=== PATIENT | male | born 1970 | race Caucasian/White ===

== ENCOUNTER 2019-12-11 12:05 | Emergency (ER) | payer MEDICARE ==
[~2019-12-11] VITALS: Ht 180.3 cm; Wt 117.5 kg
[~2019-12-11 12:05] MED LIST: BACL10TA PO; CALC-80 PO; CFR250T PO; GABA100T PO; HYDR-91 PO; NAPR-243 PO; TRAZ150T42 PO; VITAMIN B12 IM
[2019-12-11 12:12] VITALS: BP 133/90
--- OUTSIDE RECORDS SUMMARY | 2019-12-11 12:12 | XMS REPORT | Continuity of Care Document ---
Author Organization Unknown Address Unknown Phone Unavailable Allergies There is no data. Medications There is no data. Problems There is no data. Procedures There is no data. Results Test Result Range CULTURE, URINE - 07/23/18 13:05 CULTURE, URINE, ROUTINE SEE NOTE NRG CMP - 04/19/19 10:55 GLUCOSE NRG UREA NITROGEN (BUN) NRG CREATININE NRG eGFR NON-AFR. MEXICAN NRG eGFR NRG BUN/CREATININE RATIO NRG SODIUM NRG POTASSIUM NRG CHLORIDE NRG CARBON DIOXIDE NRG CALCIUM NRG PROTEIN, TOTAL NRG ALBUMIN NRG GLOBULIN NRG ALBUMIN/GLOBULIN RATIO NRG BILIRUBIN, TOTAL NRG ALKALINE PHOSPHATASE NRG AST NRG ALT NRG CMP - 04/19/19 11:57 GLUCOSE 95 mg/dL 65-99 UREA NITROGEN (BUN) 14 mg/dL 7-25 CREATININE 1.03 mg/dL 0.60-1.35 eGFR NON-AFR. MEXICAN 85 mL/min/1.73m2 > OR = 60 eGFR 98 mL/min/1.73m2 > OR = 60 BUN/CREATININE RATIO NOT APPLICABLE (calc) 6-22 SODIUM 140 mmol/L 135-146 POTASSIUM 4.5 mmol/L 3.5-5.3 CHLORIDE 102 mmol/L 98-110 CARBON DIOXIDE 30 mmol/L 20-32 CALCIUM 9.8 mg/dL 8.6-10.3 PROTEIN, TOTAL 7.1 g/dL 6.1-8.1 ALBUMIN 4.5 g/dL 3.6-5.1 GLOBULIN 2.6 g/dL (calc) 1.9-3.7 ALBUMIN/GLOBULIN RATIO 1.7 (calc) 1.0-2. 5 BILIRUBIN, TOTAL 0.5 mg/dL 0.2-1.2 ALKALINE PHOSPHATASE 92 U/L 40-115 AST 15 U/L 10-40 ALT 22 U/L 9-46 CULTURE, URINE - 08/02/19 13:52 CULTURE, URINE, ROUTINE SEE NOTE NRG Encounters ACCT No. Visit Date/Time Discharge Status Pt. Type Provider Facility Loc./Unit Complaint [id number] 04/19/2019 10:00:00 04/19/2019 23:59: 59 [id number] 08/02/2019 13:00:00 Document Registration [id number] 04/19/2019 10:45:00 Document Registration [id number] 04/19/2019 10:00:00 Document Registration [id number] 07/23/2018 11:30:00 Document Registration
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
[2019-12-11] MEDS ORDERED: diphenhydrAMINE 25 MG TAB (BENADRYL) PO ONE (12:30)
[2019-12-11] MEDS: IBUPROFEN TABLET 200 MG TAB PO ONE (12:30)
--- NOTE | 2019-12-11 12:30 | NUR ---
Benadryl 50 mg given at this time, at this time pt mentioned he was sent from [facility] [place] as no EPI available there. Pt now reports Ibuprofen taken 800 [address] Meehan of the Ibuprofen and cancelled the med as pt refusal already. Pt states he is here for EPI so he doesn't have to use a 300.00 EPI pen of his. Review of systems earlier that pt does not have mouth, tongue, neck swelling. Pt has clear lung sounds and non-labored breathing. Pt denies SOA. Color pink, skin is warm and dry. Dr was not reporting pt meeting criteria of need of EPI pen at this time and we will observe pt 1 hr.
--- NOTE | 2019-12-11 12:35 | NUR ---
Prednisone 50 mg given PO as Dr ordered. Pt prefers to sit in a chair. SaO2 is satisfactory >95% room air.
--- NOTE | 2019-12-11 12:36 | ED General ---
General Chief Complaint: Bite-Animal/Human/Insect Stated Complaint: SWELLING AROUND LT EYE;BEE STING Source of Information: Patient History of Present Illness Date Seen by Provider: Dec 11, 2019 Time Seen by Provider: 12:15 Initial Comments Patient is a 49-year-old male with history of bee sting allergy presents with bee sting to his left cheek while driving down the road 45 mins prior to arrival. The fluid into his window and vitamin before below his left eye. Patient was evaluated at urgent care and given ibuprofen. Denies airway swelling, chest tightness, shortness of breath palpitations. Patient has had required epinephrine in the past to control airway swelling. No other acute symptoms or complaints. Timing/Duration: 1 Hour Severity: Moderate Modifying Factors: improves with Other Allergies and Home Medications Allergies Uncoded Allergies: Bee Sting (Adverse Reaction, Severe, Swelling, 12/11/19) Home Medications Baclofen 10 Mg Tablet, 1 EACH PO TID, (Reported) Calcium Carbonate/Vitamin D3 1 Each Tablet, 1 EACH PO DAILY, (Reported) Cefuroxime Axetil 250 Mg Tablet, 1 TAB PO BID, (Reported) Gabapentin 100 Mg Tablet, 3 EACH PO QID, (Reported) Hydrocodone Bit/Acetaminophen 1 Each Tablet, 1-2 EA PO Q 4 - 6 HR PRN, (Reported) Naproxen 500 Mg Tablet, 1 EACH PO BID, (Reported) Trazodone Hcl 150 Mg Tablet, 150 MG PO HS, (Reported) [Vitamin B12] , IM MONTHLY, (Reported) Patient Home Medication List Home Medication List Reviewed: Yes Review of Systems Review of Systems Constitutional: see HPI EENTM: see HPI Respiratory: see HPI Cardiovascular: see HPI Gastrointestinal: see HPI Genitourinary: see HPI Musculoskeletal: see HPI Skin: see HPI Psychiatric/Neurological: See HPI Hematologic/Lymphatic: See HPI Immunological/Allergic: see HPI All Other Systems Reviewed Negative Unless Noted: Yes Past Osarmvs-Rsyafs-Zxokfu Hx Past Med/Social Hx: Reviewed Nursing Past Med/Soc Hx Past Medical History Reproductive Disorders: No Physical Exam Vital Signs Capillary Refill : Height, Weight, BMI Height: '" Weight: lbs. oz. kg; BMI Method: General Appearance: No Apparent Distress, WD/WN Eyes: Bilateral Eye Normal Inspection HEENT: PERRL/EOMI, Normal ENT Inspection, Pharynx Normal, Other (minimal swelling below the left eye, no erythema appreciated.) Neck: Supple Respiratory: Chest Non Tender, Lungs Clear, Normal Breath Sounds Cardiovascular: Regular Rate, Rhythm Focused Exam Sepsis Stage: Ruled Out Progress/Results/Core Measures Suspected Sepsis SIRS Temperature: Pulse: Respiratory Rate: Blood Pressure / Mean: Results/Orders My Orders Orders - CARISSA CID DO Diphenhydramine Tablet (Benadryl Tablet) (12/11/19 12:30) Ice: Apply To Affected Area (12/11/19 12:24) Ibuprofen Tablet (Motrin Tablet) (12/11/19 12:30) Prednisone Tablet (Deltasone Tablet) (12/11/19 12:45) Medications Given in ED Current Medications Medications Dose Ordered Sig/Lisa Route Start Time Stop Time Status Last Admin Dose Admin Diphenhydramine HCl 50 mg ONCE ONCE PO 12/11/19 12:30 12/11/19 12:31 DC 12/11/19 12:30 50 MG Prednisone 50 mg ONCE ONCE PO 12/11/19 12:45 12/11/19 12:46 DC 12/11/19 12:35 50 MG Vital Signs/I&O Capillary Refill : Departure Communication (Admissions) Patient observed in the emergency department for one hour with resolution of symptoms. No airway swelling appreciated. Will refill patient's epinephrine pen with instructions to use as needed. Return precautions reviewed. Patient verbalizes understanding agreement discharge instructions prior to departure. Impression Primary Impression: Bee sting reaction Disposition: 01 HOME, SELF-CARE Condition: Stable Departure-Patient Inst. [facility]errals: [facility] (PCP) Primary Care Physician DHRUV GARCIA APRN (Family) Primary Care Physician Patient Instructions: Insect Bites and Stings Add. Discharge Instructions: Wash face with soap and water thoroughly upon returning home. Continue ibuprofen and Benadryl as needed for facial pain. Use epinephrine pen if you develop airway swelling from future bee stings. Medication discount pricing Archy phone hay. All discharge instructions reviewed with patient and/or family. Voiced understanding. Scripts Epinephrine (Epipen 2-Miles) 0.3 Mg/0.3 Ml Auto.injct 0.3 MG IJ Q15M PRN for DYSPNEA, #1 ML Prov: CARISSA CID DO 12/11/19 CARISSA CID DO Dec 11, 2019 12:36
[2019-12-11] MEDS ORDERED: predniSONE 20 MG TAB PO ONE (12:45)
[2019-12-11] MEDS ORDERED: EPIN0.3P3 IJ (13:10)
--- NOTE | 2019-12-11 13:15 | NUR ---
Dr garrett-chris pt with continued stable condition and no resp sx. Pt is wanting discharged.
--- NOTE | 2019-12-11 13:17 | NUR ---
Pt discharged to home after review of home instructions. Dr Meehan explained he wrote patient for a double pack EPI pens for replacements as he reports numerous bees in the [place] he is in. Pt explained [employer] program will greatly reduce the cost and a card provided. Pt states they are like $300.00. Now patient states, "I don't need that card as my insurance pays on it and reduces it to like 40.00-50.00." Pt states initial itent was be seen without having to use his EPI pen that he now questions as outdated. explained purpose of need for EPI use and pt states he feels fine and would not of thought he needed now.
[2019-12-11] MEDS ORDERED: TRAM50TA3 (15:07)
== END 2019-12-11 13:17 | disposition home or self-care (01) ==
LOC: EDUNIT# 12:05 → ER FS 12:07
DX: T63.441A Toxic effect of venom of bees, accidental (unintentional), initial encounter (principal); Z91.030 Bee allergy status
CPT/HCPCS: 99283

== ENCOUNTER 2021-03-12 19:40 | Emergency (ER) | payer SELFPAY ==
[~2021-03-12] VITALS: Ht 180 cm; Wt 120.2 kg
[~2021-03-12 19:40] MED LIST changes: +EPIN0.3P3 IJ; +TRAM50TA3
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
--- NOTE | 2021-03-12 20:19 | Diagnostic Imaging Report ---
EXAMINATION: Right hip unilateral 2 or 3 views (w/pelvis when done) HISTORY: Fall, right hip pain COMPARISON: None available. FINDINGS: There is a severely comminuted intertrochanteric fracture of the right femur with moderate displacement. No dislocation. There is mild left hip osteoarthritis. IMPRESSION: 1. Severely comminuted and moderately displaced intertrochanteric fracture of the right femur. Dictated by: Dictated on workstation # [id number]
[2021-03-12 20:29] LABS: HEMATOCRIT 36 % (40-54); HEMOGLOBIN 11.5 g/dL (13.3-17.7); MEAN CORPUSCULAR HEMOGLOBIN 29 pg (25-34); MEAN CORPUSCULAR HGB CONC 32 g/dL (32-36); MEAN CORPUSCULAR VOLUME 91 fL (80-99); MEAN PLATELET VOLUME 9.6 fL (9.0-12.2); NEUTROPHILS % (AUTO) 76 % (42-75); PLATELET COUNT 274 10^3/uL (130-400); WHITE BLOOD COUNT 11.1 10^3/uL (4.3-11.0)
[2021-03-12 20:30] LABS: BASOPHILS # (AUTO) 0.1 10^3/uL (0.0-0.1); BASOPHILS % (AUTO) 1 % (0-10); EOSINOPHILS # (AUTO) 0.4 10^3/uL (0.0-0.3); EOSINOPHILS % (AUTO) 4 % (0-10); LYMPHOCYTES # (AUTO) 1.1 X 10^3 (1.0-4.0); LYMPHOCYTES % (AUTO) 10 % (12-44); MONOCYTES % (AUTO) 9 % (0-12); NEUTROPHILS # (AUTO) 8.5 X 10^3 (1.8-7.8)
[2021-03-12] MEDS ORDERED: fentaNYL INJ 100 MCG/2 ML AMP IVP ONE (20:30)
[2021-03-12 20:43] LABS: PROTHROMBIN TIME PATIENT 13.9 SEC (12.2-14.7)
[2021-03-12] MEDS ORDERED: LACTATED RINGERS 1,000 ML IV ONE (20:44)
[2021-03-12] MEDS ORDERED: LACTATED RINGERS 1,000 ML IV SCH (20:45)
[2021-03-12 20:50] LABS: CALCIUM 8.6 MG/DL (8.5-10.1); CREATININE SERUM 1.43 MG/DL (0.60-1.30); POTASSIUM 3.9 MMOL/L (3.6-5.0)
[2021-03-12 21:45] VITALS: BP 101/67
== END 2021-03-12 21:40 | disposition short-term general hospital (02) ==
LOC: EDUNIT# 19:40 → ER FS 19:42
DX: S72.141A Displaced intertrochanteric fracture of right femur, initial encounter for closed fracture (principal); I10 Essential (primary) hypertension; Z72.0 Tobacco use; W01.0XXA Fall on same level from slipping, tripping and stumbling without subsequent striking against object, initial encounter
CPT/HCPCS: 36415; 73502; 80048; 85025; 85610; 85730; 99291

== ENCOUNTER 2021-03-15 10:39 | Inpatient (IN) | payer MEDICARE ==
[~2021-03-15] VITALS: Ht 180 cm; Wt 117.6 kg
[2021-03-15] MEDS ORDERED: guaiFENesin/CODEINE (ROBITUSSIN AC) 10ML UDC PO PRN (12:45)
[2021-03-15] MEDS ORDERED: CALCIUM CARBONATE 500 MG (TUMS) TAB.CHEW PO PRN (12:45)
[2021-03-15] MEDS ORDERED: DOCUSATE SODIUM 100 MG (COLACE) CAP PO PRN (12:45)
[2021-03-15] MEDS ORDERED: FLEET ENEMA ADULT 1 EA BTL PR PRN (12:45)
[2021-03-15] MEDS ORDERED: ACETAMINOPHEN 500 MG TAB (TYLENOL) PO PRN (12:45)
[2021-03-15] MEDS ORDERED: ALPRAZolam 0.25 MG (XANAX) TAB PO PRN (12:45)
[2021-03-15] MEDS ORDERED: LACTULOSE SYRUP 10GM/15ML (ENULOSE) 30ML UDC PO PRN (12:45)
[2021-03-15] MEDS ORDERED: BISACODYL 10 MG SUPP (DULCOLAX) PR PRN (12:45)
[2021-03-15] MEDS ORDERED: diphenhydrAMINE 25 MG TAB (BENADRYL) PO PRN (12:45)
[2021-03-15] MEDS ORDERED: ONDANSETRON 4 MG (ZOFRAN) ORAL DISSOLVE TAB PO PRN (12:45)
[2021-03-15] MEDS ORDERED: LOPERAMIDE 2 MG (IMODIUM) TABLET PO PRN (12:45)
[2021-03-15] MEDS ORDERED: DULO30CA49 PO (13:10)
[2021-03-15] MEDS ORDERED: DICL75TA2 PO (13:10)
[2021-03-15] MEDS ORDERED: HYDR-3817 PO (13:10)
[2021-03-15] MEDS ORDERED: FERR325T18 PO (13:10)
[2021-03-15] MEDS ORDERED: LISI20TA26 PO (13:10)
[2021-03-15] MEDS ORDERED: ACET-2840 PO (13:10)
[2021-03-15] MEDS ORDERED: TRAM50TA3 PO (13:10)
[2021-03-15 15:40] VITALS: BP 142/67
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
[2021-03-15] MEDS: ACETAMINOPHEN 325 MG TABLET PO PRN (19:10)
[2021-03-15] MEDS: ETODOLAC 300 MG (LODINE) CAP PO SCH (19:24)
[2021-03-15 20:00] VITALS: BP 119/57
[2021-03-15] MEDS: DOCUSATE SODIUM 100 MG (COLACE) CAP PO SCH (20:59)
[2021-03-15] MEDS: ACETAMINOPHEN 500 MG TAB (TYLENOL) PO SCH (20:59)
[2021-03-15] MEDS: SENNA W/DOCUSATE (SENOKOT S) TABLET PO SCH (20:59)
[2021-03-15] MEDS ORDERED: ACETAMINOPHEN 1300 MG PO SCH (21:00)
[2021-03-15] MEDS ORDERED: NON-FORMULARY MEDICATION 1 EA EA (Diclofenac Sodium 75 MG) PO SCH (21:00)
[2021-03-15] MEDS: polyethylene glycoL POWDER 17 GM (MIRALAX) PACK PO SCH (21:05)
[2021-03-16 06:08] LABS: BASOPHILS % (AUTO) 1 % (0-10); EOSINOPHILS # (AUTO) 0.2 10^3/uL (0.0-0.3); EOSINOPHILS % (AUTO) 6 % (0-10); HEMATOCRIT 24 % (40-54); HEMOGLOBIN 7.8 g/dL (13.3-17.7); LYMPHOCYTES # (AUTO) 0.7 10^3/uL (1.0-4.0); LYMPHOCYTES % (AUTO) 18 % (12-44); MEAN CORPUSCULAR HEMOGLOBIN 29 pg (25-34); MEAN CORPUSCULAR HGB CONC 32 g/dL (32-36); MEAN CORPUSCULAR VOLUME 92 fL (80-99); MONOCYTES # (AUTO) 0.4 10^3/uL (0.0-1.0); MONOCYTES % (AUTO) 11 % (0-12); NEUTROPHILS # (AUTO) 2.5 10^3/uL (1.8-7.8); NEUTROPHILS % (AUTO) 64 % (42-75); PLATELET COUNT 153 10^3/uL (130-400); WHITE BLOOD COUNT 3.9 10^3/uL (4.3-11.0)
[2021-03-16 06:36] LABS: ALBUMIN 2.9 GM/DL (3.2-4.5); BILIRUBIN,TOTAL 0.7 MG/DL (0.1-1.0); CREATININE SERUM 0.67 MG/DL (0.60-1.30); TOTAL PROTEIN 5.3 GM/DL (6.4-8.2)
--- NOTE | 2021-03-16 07:06 | Individualized Plan of Care ---
Individualized Plan of Care Rehab Nursing IPOC Order Admission Date Mar 15, 2021 at 15:40 Current Orders Orders Admission Order(Inpt,Obs,Sdc) (03/15/21 12:43) Alberto Claytonnitza (03/15/21 12:43) Sequential Compression Device (03/15/21 12:43) Brass Pickler-Inpt Rehab Con (03/15/21 12:43) Rehab Nursing Orders-Ipoc (03/15/21 12:43) Physical Therapy Rehab Orders (03/15/21 12:43) Occupational Therapy Rehab Ord (03/15/21 12:43) Speech Therapy Rehab Orders (03/15/21 12:43) Cbc With Automated Diff (03/16/21 06:00) Comprehensive Metabolic Panel (03/16/21 06:00) Precautions (Aru) (03/15/21 12:43) Rehab-Intensity Of Therapy (03/15/21 12:43) Alprazolam Tablet (Xanax Tablet) (03/15/21 12:45) Calcium Carbonate Chew Tablet (Antacid C (03/15/21 12:45) Diphenhydramine Tablet (Benadryl Tablet) (03/15/21 12:45) Docusate Sodium Capsule (Colace Capsule) (03/15/21 21:00) Docusate Sodium Capsule (Colace Capsule) (03/15/21 12:45) Bisacodyl Suppository (Dulcolax Supposit (03/15/21 12:45) Lactulose Oral Solution (Enulose Oral So (03/15/21 12:45) Na Phos/Na Biphos Enema (Fleet Enema Abel (03/15/21 12:45) Guaifenesin/Codeine Syrup (Robitussin Ac (03/15/21 12:45) Loperamide Tablet (Imodium Tablet) (03/15/21 12:45) Melatonin Tablet (Melatonin Tablet) (03/15/21 12:45) Polyethylene Glycol Powder Pkt (Miralax (03/15/21 21:00) Ondansetron Oral Dissolve Tab (Zofran (03/15/21 12:45) Senna S Tablet (Senokot S Tablet) (03/15/21 21:00) Acetaminophen Tablet (Tylenol Tablet) (03/15/21 12:45) Code/Resuscitation (03/15/21 12:43) Initiate Admission Nursing Pro .admission (03/15/21 12:43) Admission Arrival Bed Request (03/15/21 15:42) Acetaminophen Tablet/Caplet (Tylenol T (03/15/21 16:15) Patient Visit (03/15/21 ) Pt Eval Moderate Complexity (03/15/21 ) General/Regular (03/15/21 Dinner) Duloxetine Capsule (Cymbalta Capsule) (03/16/21 09:00) Hydrocodone/Apap 7.5/325 Tab (Lortab 7. (03/15/21 18:15) Lisinopril Tablet (Zestril Tablet) (03/16/21 09:00) Rx-Tramadol Hcl (Rx-Ultram) (03/15/21 18:15) (Nf) Acetaminophen (Tylenol 8 Hour) (03/15/21 21:00) (Nf) Diclofenac Sodium (03/15/21 21:00) Enoxaparin Injection (Lovenox Injection) (03/16/21 08:00) Ferrous Sulfate Tablet (Feosol Tablet) (03/17/21 08:00) Acetaminophen Tablet (Tylenol Tablet) (03/15/21 21:00) Tramadol Tablet (Ultram Tablet) (03/15/21 18:45) Etodolac Capsule/Tablet (Lodine Capsule/ (03/15/21 18:30) Iron Test (Fe) (03/16/21 09:33) Methylprednisolone Sod Succ (Solu-Medrol (03/16/21 09:45) Patient Visit (03/16/21 ) Speech Sound Lang Comp (03/16/21 ) Treat. Speech/Lang/Voice (03/16/21 ) Patient Visit (03/16/21 ) Functional Activities, Ea 15 (03/16/21 ) Patient Visit (03/16/21 ) Exercise Therap, Ea 15 Min (03/16/21 ) Rehab Nursing Orders: Ongoing Assess. of Function Status, Bladder Management, Bladder Scan, Bladder Training, Bowel Management, Bowel Training, Disease Management & Educaiton, DVT Prophylaxis, Fall Prevention, Fluid/Electrolyte/Nutr ition Mgmt, Infection Prevention, Medication Management & Education, Management of Risks & Complications, Nutrition Management, Pain Management, Patient/Family Support, Safety Management Intensity of Therapy to be met Patient to be seen: Min.3h per day/5 of 7d PT IPOC Problem List: Activity Tolerance, Functional Strength, Safety, Balance, Gait, Transfer, Bed Mobility, ROM Treatment Plan: Continue Plan of Care Bed Mobility, Education, Functional Activity Debo, Functional Strength, Group Therapy, Gait, Safety, Therapeutic Exercise, Transfers Treatment Duration: May 11, 2021 Frequency: At least 5 of 7 days/Wk (IRF) Estimated Hrs Per Day: 1.5 hours per day OT IPOC Problems: Decreased Activ Tolerance, Decreased UE Strength, Impaired Funct Balance, Impaired I ADL's, Impaired Self-Care Skills, Restricted Funct UE ROM OT Treatment, Training and Edu: Yes Plan of Care: ADL Retraining, Functional Mobility, Group Exercise/Act as Ind, UE Funct Exercise/Act Treatment Duration: Apr 13, 2021 Frequency: At least 5 of 7 days/Wk (IRF) Estimated Hrs Per Day: 1.[address] IPOC Speech Therapy Treatment Plan: Discontinue ST Treatment Duration: Mar 16, 2021 Frequency: Modified Program (IRF) Estimated Hrs Per Day: Other Brass Pickler/Case Mgmt Brass Pickler/Case Managemen: Discharge Planning Dietitian/Golf Professional Dietitian/Golf Professional to monitor nutritional status and make changes and/or recommendations as needed and work with speech pathology on dietary upgrades as the occur. Physician IPOC Medical Issues being managed closely and that require the 24 hour availability of a physician: Patient will require close monitoring for postop anemia with significant pain issues along with monitoring for neurological deficit due to prior cervical spine injury causing chronic disability Medical Issues: Bowel/Bladder Function, DVT Prophylaxis, Falls Precautions, Fluid/Electrolyte/Nutrition Balance, Infection Protection, Pain Management, Wound Care Brief Synthesis of Preadmission Screen, Post-Admission Evaluation, and Therapy Evaluations: PT and OT will focus on regaining function with assistive devices and increase independence in ADLs in order to return back home to independent living Medical Prognosis: Good Anticipated Length of Stay: 14 days CHENG FARIAS DO Mar 16, 2021 07:06
--- NOTE | 2021-03-16 07:06 | PM&R Progress Note ---
Subjective HPI/CC On Admission Date Seen by Provider: Mar 16, 2021 Time Seen by Provider: 09:00 Subjective/Events-last exam 03/16/2021: Patient doing really well Took a shower today Refused laxatives due to loose stools Pain pills are managing the pain Participating in therapy Hemoglobin 7.8 will check iron level Review of Systems General: Fatigue, Malaise Musculoskeletal: leg pain Objective Exam Vital Signs Vital Signs Date Time Temp Pulse Resp B/P (MAP) Pulse Ox O2 Delivery O2 Flow Rate FiO2 03/16/21 21:00 Room Air 03/16/21 20:00 37.0 77 18 132/70 (90) 97 Capillary Refill : General Appearance: No Apparent Distress, WD/WN, Chronically ill HEENT: PERRL/EOMI, Normal ENT Inspection, Pharynx Normal Neck: Full Range of Motion, Normal Inspection, Non Tender, Supple, Carotid Bruit Respiratory: Chest Non Tender, Lungs Clear, Normal Breath Sounds, No Accessory Muscle Use, No Respiratory Distress Cardiovascular: Regular Rate, Rhythm, No Edema, No Gallop, No JVD, No Murmur, Normal Peripheral Pulses Gastrointestinal: Normal Bowel Sounds, No Organomegaly, No Pulsatile Mass, Non Tender, Soft Back: Normal Inspection, No CVA Tenderness, No Vertebral Tenderness Extremity: Normal Capillary Refill, Normal Inspection, Normal Range of Motion, Non Tender, No Calf Tenderness, No Pedal Edema Neurologic/Psychiatric: Alert, Oriented x3, Normal Mood/Affect, Abnormal Gait, Motor Weakness (Chronic left-sided weakness and minimal weightbearing on right) Skin: Normal Color, Warm/Dry Lymphatic: No Adenopathy Results/Procedures Lab Laboratory Tests 03/16/21 06:00 Patient resulted labs reviewed. FIM Transfers Therapy Code Descriptions/Definitions Functional Harris Measure: 0=Not Assessed/NA 4=Minimal Assistance 1=Total Assistance 5=Supervision or Setup 2=Maximal Assistance 6=Modified Harris 3=Moderate Assistance 7=Complete IndependenceSCALE: Activities may be completed with or without assistive devices. 6-Lpnthfxbvq-begxizt completes the activity by him/herself with no assistance from a helper. 5-Set-up or Clean-up Assistance-helper sets up or cleans up; patient completes activity. [place] assists only prior to or following the activity. 4-Supervision or Touching Assistance-helper provides verbal cues and/or touching/steadying and/or contact guard assistance as patient completes activity. Assistance may be provided throughout the activity or intermittently. 3-Partial/Moderate Assistance-helper does LESS THAN HALF the effort. [place] lifts, holds or supports trunk or limbs, but provides less than half the effort. 2-Substantial/Maximal Assistance-helper does MORE THAN HALF the effort. [place] lifts or holds trunk or limbs and provides more than half the effort. 0-Gphoejxyn-zkflsu does ALL the effort. Patient does none of the effort to complete the activity. Or, the assistance of 2 or more helpers is required for the patient to complete the activity. If activity was not attempted, code reason: 7-Patient Refused. 9-Not Applicable-not attempted and the patient did not perform the activity before the current illness, exacerbation or injury. 10-Not Attempted due to Environmental Limitations-(lack of equipment, weather restraints, etc.). 88-Not Attempted due to Medical Conditions or Safety Concerns. Roll Left to Right (QC): 5 Sit to Lying (QC): 5 Sit to Stand (QC): 1 Chair/Jki-th-Awgqd Xfer(QC): 2 Car Transfer (QC): 88 Gait Training Does the Patient Walk?: No and Walking Goal IS indicated Walk 10 feet (QC): 88 Walk 50 ft with 2 Turns(QC): 88 Walk 150 ft (QC): 88 Walking 10ft/uneven surface-QC: 88 Gait Assistive Device: FWW Wheelchair Training Does the Pt Use a Wheelchair?: Yes Distance: 10 Wheel 50 ft with 2 turns (QC): 88 Wheel 150 ft (QC): 88 Type of Wheelchair: Manual Stair Training 1 Step (curb) (QC): 88 4 Steps (QC): 88 12 Steps (QC): 88 Balance Picking up an Object (QC): 88 ADL-Treatment Eating (QC): 6 (IND with lunch) Oral Hygiene (QC): 5 (based on clincial judgment, set up seated) Shower/Bathe Self (QC): 7 Upper Body Dressing (QC): 5 (pt able to doff ear pull machine operator shirt) Lower Body Dressing (QC): 2 (Pt required max A doffing pants at bed level, utilizing side to side rolling.) On/Off Footwear (QC): 7 Toileting Hygiene (QC): 2 (Pt used urinal, spilling on pants. Required max A to doff soiled pants at bed level.) Assessment/Plan Assessment and Plan Assess & Plan/Chief Complaint Assessment: Status post right hip fracture repair Oral tobacco use Alcohol use Hypertension Neurogenic bladder Cervical spine injury 1995 Anemia Plan: DVT prophylaxis Supportive care Bowel regimen 03/16/2021: Check iron level Participation in therapy Pain control (1) Intertrochanteric fracture Status: Acute CHENG FARIAS DO Mar 16, 2021 07:06
[2021-03-16 07:54] VITALS: BP 149/71
[2021-03-16] MEDS: DOCUSATE SODIUM 100 MG (COLACE) CAP PO SCH ×2 (08:03→22:13)
[2021-03-16] MEDS: lisINopril 20 MG (PRINIVIL) TABLET PO SCH (08:03)
[2021-03-16] MEDS: ACETAMINOPHEN 500 MG TAB (TYLENOL) PO SCH ×2 (08:04→21:53)
[2021-03-16] MEDS: DULoxetine 30 MG (CYMBALTA) CAP PO SCH (08:04)
[2021-03-16] MEDS: HYDROcodone/APAP 7.5 MG/325 MG (LORTAB, LORCET PLUS) TABLET PO PRN (08:04)
[2021-03-16] MEDS: ETODOLAC 300 MG (LODINE) CAP PO SCH ×2 (08:04→17:09)
[2021-03-16] MEDS: ENOXAPARIN 40 MG/0.4 ML (LOVENOX) SYR SC SCH (08:05)
--- NOTE | 2021-03-16 08:52 | Occupational Ther Daily Note ---
OT Current Status-Daily Note Subjective Pt alert, laying in bed with HOB raised. Pt reported no pain but discomfort. Pt agreed to therapy. Mental Status/Objective Patient Orientation: Person, Place, Time, Situation ADL-Treatment Co-treat with PT ([id number]) due to decreased endurance, increase pain, transfers, and increase fall risk. PT focusing on transfers, LE placement, sit/stand while OT focuses on sponge bath, UB/LB dressing, UE placement during transfers. Pt stated he missed the urinal when using it in bed, pt was soaked in urine. He sits to the side of the bed with min assist, changes gown and cleans up. See PT notes for transfers. Pt completed sponge bath at bedside due to decreased endurance. Pt cleansed/dried UB, chest, abdomen, and homer parts with SBA. Pt cleansed buttocks by leaning to side in sitting with CGA. When asked to take aspen hose off to cleanse LB, pt requested to leave them on because they help with pa in. Pt is impulsive during task and required vb to slow down. After set up, pt donned UB dressing. Pt required assist to thread LB dressing, pt able to lift legs into dressing. Pt sit-stand from raised EOB to FWW and required max A to hike LB dressing due to decreased dynamic standing. When asked to change into new socks, pt stated "these socks I'm wearing now will be fine." Will go over donning/doffing socks in second treatment. See PT notes for sliding board transfer. Pt participated in functional w/c mobility task from room to gym. Therapy Code Descriptions/Definitions Functional [place] Measure: 0=Not Assessed/NA 4=Minimal Assistance 1=Total Assistance 5=Supervision or Setup 2=Maximal Assistance 6=Modified [place] 3=Moderate Assistance 7=Complete IndependenceSCALE: Activities may be completed with or without assistive devices. 5-Ijkgfmsgam-vggxgaq completes the activity by him/herself with no assistance from a helper. 5-Set-up or Clean-up Assistance-helper sets up or cleans up; patient completes activity. [place] assists only prior to or following the activity. 4-Supervision or Touching Assistance-helper provides verbal cues and/or touching/steadying and/or contact guard assistance as patient completes activity. Assistance may be provided throughout the activity or intermittently. 3-Partial/Moderate Assistance-helper does LESS THAN HALF the effort. [place] lifts, holds or supports trunk or limbs, but provides less than half the effort. 2-Substantial/Maximal Assistance-helper does MORE THAN HALF the effort. [place] lifts or holds trunk or limbs and provides more than half the effort. 3-Jszpxgrvf-hljklo does ALL the effort. Patient does none of the effort to complete the activity. Or, the assistance of 2 or more helpers is required for the patient to complete the activity. If activity was not attempted, code reason: 7-Patient Refused. 9-Not Applicable-not attempted and the patient did not perform the activity before the current illness, exacerbation or injury. 10-Not Attempted due to Environmental Limitations-(lack of equipment, weather restraints, etc.). 88-Not Attempted due to Medical Conditions or Safety Concerns. Other Treatment Once in gym, pt participated in x3 sets of sit-stand from w/c to parallel bars for increased static standing for improved independence with ADLs. See PT notes for how pt tolerated task. Pt proplled self back to room in w/c. Pt requested to stay in w/c. After therapy, pt sitting in w/c. All needs met and call light in reach. Education OT Patient Education: Energy conservation, Modified ADL techniques, Reviewed precautions, Safety issues, Transfer techniques Teaching Recipient: Patient Teaching Methods: Demonstration, Discussion Response to Teaching: Verbalize Understanding, Return Demonstration OT Short Term Goals Short Term Goals Time Frame: Mar 29, 2021 Toileting hygiene: 3 Shower/bathe self: 3 Lower body dressin Putting on/taking off footwear: 3 OT Retirement Goals Assembler Filters Goals Time Frame: Apr 13, 2021 Eating (QC): 6 Oral Hygiene (QC): 6 Toileting Hygiene (QC): 4 Shower/Bathe Self (QC): 4 Upper Body Dressing (QC): 5 Lower Body Dressing (QC): 4 On/Off Footwear (QC): 5 Additional Goals: 1-Demonstrate ADL Tasks, 2-Verbalize Understanding, 3-I mproveStrength/Debo 1=Demonstrate adherence to instructed precautions during ADL tasks. 2=Patient will verbalize/demonstrate understanding of assistive devices/modifications for ADL. 3=Patient will improve strength/tolerance for activity to enable patient to perform ADL's. OT Education/Plan Problem List/Assessment Assessment: Decreased Activ Tolerance, Decreased Safety Aware, Decreased UE Strength, Impaired Coordination, Impaired Funct Balance, Impaired I ADL's, Impaired Self-Care Skills Discharge Recommendations Plan/Recommendations: Continue POC Treatment Plan/Plan of Care Patient would benefit from OT for education, treatment and training to promote independence in ADL's, mobility, safety and/or upper extremity function for ADL's. Plan of Care: ADL Retraining, Functional Mobility, Group Exercise/Act as Ind, UE Funct Exercise/Act Treatment Duration: Apr 13, 2021 Frequency: At least 5 of 7 days/Wk (IRF) Estimated Hrs Per Day: 1.5 hours per day Agreement: Yes Rehab Potential: Fair Time/GCodes Start Time: 08:00 Stop Time: 09:00 Total Time Billed (hr/min): 60 Billed Treatment Time 1 visit - ADL 2 , FA 2 (60 mins) Co treat with PT ([id number]) JONATHAN MARTIN Mar 16, 2021 08:52
--- NOTE | 2021-03-16 08:55 | Physical Therapy Daily Note ---
PT Daily Note-Current Subjective Patient in bed pre tx, agrees to PT, says he doesn't have very much pain. Will be co-treating with OT due to poor patient mobility, strength, endurance, poor coordination, coordinate UE and LE during activity, safety and reduce risk of falls. Appearance Patient in WC at bedside post tx with nurse call, phone, tray, all needs met. Mental Status Patient Orientation: Person, Place, Situation Transfers SCALE: Activities may be completed with or without assistive devices. 2-Vxlzezsljr-idmhfqb completes the activity by him/herself with no assistance from a helper. 5-Set-up or Clean-up Assistance-helper sets up or cleans up; patient completes activity. [place] assists only prior to or following the activity. 4-Supervision or Touching Assistance-helper provides verbal cues and/or touching/steadying and/or contact guard assistance as patient completes activit y. Assistance may be provided throughout the activity or intermittently. 3-Partial/Moderate Assistance-helper does LESS THAN HALF the effort. [place] lifts, holds or supports trunk or limbs, but provides less than half the effort. 2-Substantial/Maximal Assistance-helper does MORE THAN HALF the effort. [place] lifts or holds trunk or limbs and provides more than half the effort. 9-Bokqkvrcr-gosbmd does ALL the effort. Patient does none of the effort to complete the activity. Or, the assistance of 2 or more helpers is required for the patient to complete the activity. If activity was not attempted, code reason: 7-Patient Refused. 9-Not Applicable-not attempted and the patient did not perform the activity before the current illness, exacerbation or injury. 10-Not Attempted due to Environmental Limitations-(lack of equipment, weather restraints, etc.). 88-Not Attempted due to Medical Conditions or Safety Concerns. Roll Left & Right (QC): 6 Lying to Sitting/Side of Bed(Q: 3 Sit to Stand (QC): 1 Chair/Bmn-we-Ipvyk Xfer(QC): 3 Patient was soaked in urine in the bed. He sits to the side of the bed with min assist, changes gown and cleans up. Brushes teeth and partially dons a brief and pants and gets shirt on. Patient stands with assist of 2 for 3 times for dressing and changing sheet and pad. Patient cannot turn to the side though to perform a transfer. Patient performs a sliding board transfer with mod assist to WC, propels to therapy gym and stands 3 times in the parallel bars with max assist. Patient seems to be compliant with TTWB on the right leg. Patient is very unsteady with sit to stand, needs careful assist and guarding. When done he propels back to his room. Weight Bearing Right Lower Extremity: Right Touch Toe Bearing Left Lower Extremity: Left Full Weight Bearing Left and Right LE's demonstrates strength deficit from previous C5-T1 SCI Wheelchair Training Does the Pt Use a Wheelchair?: Yes Wheel 50 ft with 2 turns (QC): 6 Wheel 150 ft (QC): 6 Type of Wheelchair: Manual 150'x2 Treatments PT performs bed mobility, transfers, standing during dressing, standing in parallel bars, WC mobility, OT performed bathing, dressing, ADL's, assist with standing and transfers. Assessment Current Status: Fair Progress improved standing PT Short Term Goals Short Term Goals Time Frame: Apr 05, 2021 Roll Left & Right: 6 Sit to lyin Lying to sitting on side of be: 5 Sit to stand: 3 Chair/umc-be-ptusi transfer: 3 Toilet transfer: 3 Car transfer: 3 Walk 10 feet: 2 Walk 50 feet with two turns: 88 Walk 150 feet: 88 Walking 10ft on uneven surface: 88 1 step (curb): 88 4 steps: 88 12 steps: 88 Picking up objects: 2 Does pt use a wc or scooter: Yes Wheel 50ft w/2 turns: 5 Wheel 150 feet: 5 Type: Manual PT Alf Goals Business Continuity Strategy Director Goals PT Alf Goals Time Frame: May 03, 2021 Roll Left & Right (QC): 6 Sit to Lying (QC): 6 Lying-Sitting on Side/Bed(QC): 6 Sit to Stand (QC): 5 Chair/Oqu-dh-Vvogn Xfer(QC): 4 Toilet Transfer (QC): 4 Car Transfer (QC): 4 Does the Patient Walk: Yes Walk 10 feet (QC): 4 Walk 50ft with 2 Turns (QC): 3 Walk 150 ft (QC): 3 Walking 10ft on Uneven Surface: 3 1 Step (curb) (QC): 88 4 Steps (QC): 88 12 Steps (QC): 88 Picking up an Object (QC): 4 Does the Pt use WC or Scooter?: Yes Wheel 50 feet with 2 turns (QC: 6 Type: Manual Wheel 150 feet: 6 Type: Manual PT Plan Problem List Problem List: Activity Tolerance, Functional Strength, Safety, Balance, Gait, Transfer, Bed Mobility, ROM Treatment/Plan Treatment Plan: Continue Plan of Care Treatment Plan: Bed Mobility, Education, Functional Activity Debo, Functional Strength, Group Therapy, Gait, Safety, Therapeutic Exercise, Transfers Treatment Duration: May 11, 2021 Frequency: At least 5 of 7 days/Wk (IRF) Estimated Hrs Per Day: 1.5 hours per day Patient and/or Family Agrees t: Yes Safety Risks/Education Patient Education: Transfer Techniques, Reviewed Precautions, Correct Positioning, W/C Management, Safety Issues Teaching Recipient: Patient Teaching Methods: Demonstration, Discussion Response to Teaching: Reinforcement Needed Time/GCodes Time In: 0800 Time Out: 0900 Total Billed Treatment Time: 60 Total Billed Treatment 1 visit FA 60' co-treated for 60' LIVIER NEVAREZ PT Mar 16, 2021 08:55
[2021-03-16] MEDS: SENNA W/DOCUSATE (SENOKOT S) TABLET PO SCH ×2 (09:09→22:14)
[2021-03-16] MEDS: polyethylene glycoL POWDER 17 GM (MIRALAX) PACK PO SCH ×2 (09:09→22:13)
[2021-03-16] MEDS ORDERED: methylPREDNISolone 125 MG (Solu-MEDROL) VIAL IM ONE (09:45)
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
--- NOTE | 2021-03-16 11:44 | Occupational Ther Daily Note ---
OT Current Status-Daily Note Subjective Pt alert, sitting in w/c when OT entered. Pt agreed to therapy. No c/o pain reported. Mental Status/Objective Patient Orientation: Person, Place, Time, Situation ADL-Treatment After set up, pt doffed/don LLUE sock using figure 4 technique. Pt required ski lled demonstration of LB AE of dressing stick and sock for correct demonstration. Pt doffed R LUE sock using dressing stick. After set up, pt donned R LE sock using sock aid. Therapy Code Descriptions/Definitions Functional [place] Measure: 0=Not Assessed/NA 4=Minimal Assistance 1=Total Assistance 5=Supervision or Setup 2=Maximal Assistance 6=Modified [place] 3=Moderate Assistance 7=Complete IndependenceSCALE: Activities may be completed with or without assistive devices. 9-Wsktvpuazv-uyelank completes the activity by him/herself with no assistance from a helper. 5-Set-up or Clean-up Assistance-helper sets up or cleans up; patient completes activity. [place] assists only prior to or following the activity. 4-Supervision or Touching Assistance-helper provides verbal cues and/or touching/steadying and/or contact guard assistance as patient completes activity. Assistance may be provided throughout the activity or intermittently. 3-Partial/Moderate Assistance-helper does LESS THAN HALF the effort. [place] lifts, holds or supports trunk or limbs, but provides less than half the effort. 2-Substantial/Maximal Assistance-helper does MORE THAN HALF the effort. [place] lifts or holds trunk or limbs and provides more than half the effort. 5-Uqgbtucvn-poplop does ALL the effort. Patient does none of the effort to complete the activity. Or, the assistance of 2 or more helpers is required for the patient to complete the activity. If activity was not attempted, code reason: 7-Patient Refused. 9-Not Applicable-not attempted and the patient did not perform the activity before the current illness, exacerbation or injury. 10-Not Attempted due to Environmental Limitations-(lack of equipment, weather restraints, etc.). 88-Not Attempted due to Medical Conditions or Safety Concerns. On/Off Footwear: 5 (After set up, using AE.) Other Treatment Pt required skilled demonstration of BUE green theraband exercises. Pt completed x2 sets of 10 reps of BUE green theraband exercises in all planes for increased BUE strength for improved independence with ADLs. Pt required resting break throughout exercises due to decreased activity tolerance. After session, pt sitting in w/c. All needs met and call light in reach. Education OT Patient Education: Energy conservation, Exercise program, Home exercise program, Modified ADL techniques, Use of adapted equipment Teaching Recipient: Patient Teaching Methods: Demonstration, Handout, Discussion Response to Teaching: Verbalize Understanding, Return Demonstration OT Short Term Goals Short Term Goals Time Frame: Mar 29, 2021 Toileting hygiene: 3 Shower/bathe self: 3 Lower body dressin Putting on/taking off footwear: 3 OT Commercial Loan Officer Goals [facility] Goals Time Frame: Apr 13, 2021 Eating (QC): 6 Oral Hygiene (QC): 6 Toileting Hygiene (QC): 4 Shower/Bathe Self (QC): 4 Upper Body Dressing (QC): 5 Lower Body Dressing (QC): 4 On/Off Footwear (QC): 5 Additional Goals: 1-Demonstrate ADL Tasks, 2-Verbalize Understanding, 3- ImproveStrength/Debo 1=Demonstrate adherence to instructed precautions during ADL tasks. 2=Patient will verbalize/demonstrate understanding of assistive devices/modifications for ADL. 3=Patient will improve strength/tolerance for activity to enable patient to perform ADL's. OT Education/Plan Problem List/Assessment Assessment: Decreased Activ Tolerance, Decreased UE Strength, Impaired Coordination, Impaired Funct Balance, Impaired I ADL's, Impaired Self-Care Skills Discharge Recommendations Plan/Recommendations: Continue POC Treatment Plan/Plan of Care Patient would benefit from OT for education, treatment and training to promote independence in ADL's, mobility, safety and/or upper extremity function for ADL's. Plan of Care: ADL Retraining, Functional Mobility, Group Exercise/Act as Ind, UE Funct Exercise/Act Treatment Duration: Apr 13, 2021 Frequency: At least 5 of 7 days/Wk (IRF) Estimated Hrs Per Day: 1.5 hours per day Agreement: Yes Rehab Potential: Fair Time/GCodes Start Time: 11:20 Stop Time: 11:50 Total Time Billed (hr/min): 30 Billed Treatment Time 1 visit - ADL 1 (12 mins) EX 1 (18 mins) 30 min JONATHAN MARTIN Mar 16, 2021 11:44
--- NOTE | 2021-03-16 14:14 | Physical Therapy Daily Note ---
PT Daily Note-Current Subjective Patient in WC at bedside pre tx, agrees to PT, states he doesn't have much pain. Appearance Patient in WC at bedside post tx with nurse call, phone, tray, all needs met. Mental Status Patient Orientation: Person, Place, Situation right leg brace Transfers SCALE: Activities may be completed with or without assistive devices. 8-Ulxkookjqx-pkzbgia completes the activity by him/herself with no assistance from a helper. 5-Set-up or Clean-up Assistance-helper sets up or cleans up; patient completes activity. [place] assists only prior to or following the activity. 4-Supervision or Touching Assistance-helper provides verbal cues and/or touching/steadying and/or contact guard assistance as patient completes activity. Assistance may be provided throughout the activity or intermittently. 3-Partial/Moderate Assistance-helper does LESS THAN HALF the effort. [place] lifts, holds or supports trunk or limbs, but provides less than half the effort. 2-Substantial/Maximal Assistance-helper does MORE THAN HALF the effort. [place] lifts or holds trunk or limbs and provides more than half the effort. 3-Uwxdmriwe-egyrmp does ALL the effort. Patient does none of the effort to complete the activity. Or, the assistance of 2 or more helpers is required for the patient to complete the activity. If activity was not attempted, code reason: 7-Patient Refused. 9-Not Applicable-not attempted and the patient did not perform the activity before the current illness, exacerbation or injury. 10-Not Attempted due to Environmental Limitations-(lack of equipment, weather restraints, etc.). 88-Not Attempted due to Medical Conditions or Safety Concerns. Weight Bearing Right Lower Extremity: Right Touch Toe Bearing Left Lower Extremity: Left Full Weight Bearing Left and Right LE's demonstrates strength deficit from previous C5-T1 SCI Exercises Seated Therapy Exercises: Ankle pumps, Long arc quads, Hip flexion, Hamstring Curls, Hip abd/add (using pillow for add and manual resist for abd) Seated Reps: 20 Treatments LE strengthening Assessment Current Status: Fair Progress improving AROM, advised patient to use ankle pumps to help prevent DVT's PT Short Term Goals Short Term Goals Time Frame: Apr 05, 2021 Roll Left & Right: 6 Sit to lyin Lying to sitting on side of be: 5 Sit to stand: 3 Chair/kkg-dv-ncdlo transfer: 3 Toilet transfer: 3 Car transfer: 3 Walk 10 feet: 2 Walk 50 feet with two turns: 88 Walk 150 feet: 88 Walking 10ft on uneven surface: 88 1 step (curb): 88 4 steps: 88 12 steps: 88 Picking up objects: 2 Does pt use a wc or scooter: Yes Wheel 50ft w/2 turns: 5 Wheel 150 feet: 5 Type: Manual PT Diamond Finishing Supervisor Goals Diamond Finishing Supervisor Goals PT Fpc Goals Time Frame: May 03, 2021 Roll Left & Right (QC): 6 Sit to Lying (QC): 6 Lying-Sitting on Side/Bed(QC): 6 Sit to Stand (QC): 5 Chair/Yej-ez-Iutdi Xfer(QC): 4 Toilet Transfer (QC): 4 Car Transfer (QC): 4 Does the Patient Walk: Yes Walk 10 feet (QC): 4 Walk 50ft with 2 Turns (QC): 3 Walk 150 ft (QC): 3 Walking 10ft on Uneven Surface: 3 1 Step (curb) (QC): 88 4 Steps (QC): 88 12 Steps (QC): 88 Picking up an Object (QC): 4 Does the Pt use WC or Scooter?: Yes Wheel 50 feet with 2 turns (QC: 6 Type: Manual Wheel 150 feet: 6 Type: Manual PT Plan Problem List Problem List: Activity Tolerance, Functional Strength, Safety, Balance, Gait, Transfer, Bed Mobility, ROM Treatment/Plan Treatment Plan: Continue Plan of Care Treatment Plan: Bed Mobility, Education, Functional Activity Debo, Functional Strength, Group Therapy, Gait, Safety, Therapeutic Exercise, Transfers Treatment Duration: May 11, 2021 Frequency: At least 5 of 7 days/Wk (IRF) Estimated Hrs Per Day: 1.5 hours per day Patient and/or Family Agrees t: Yes Safety Risks/Education Patient Education: Correct Positioning, Safety Issues Teaching Recipient: Patient Teaching Methods: Demonstration, Discussion Response to Teaching: Reinforcement Needed Time/GCodes Time In: 1400 Time Out: 1415 Total Billed Treatment Time: 15 Total Billed Treatment 1 visit EX Roya JAMESJULIEN AHMADIIS PT Mar 16, 2021 14:14
[2021-03-16 20:00] VITALS: BP 132/70
[2021-03-17] MEDS: HYDROcodone/APAP 7.5 MG/325 MG (LORTAB, LORCET PLUS) TABLET PO PRN ×2 (02:40→09:37)
[2021-03-17 07:30] VITALS: BP 111/58
[2021-03-17] MEDS: ETODOLAC 300 MG (LODINE) CAP PO SCH ×2 (09:29→17:39)
[2021-03-17] MEDS: DULoxetine 30 MG (CYMBALTA) CAP PO SCH (09:29)
[2021-03-17] MEDS: lisINopril 20 MG (PRINIVIL) TABLET PO SCH (09:29)
[2021-03-17] MEDS: ENOXAPARIN 40 MG/0.4 ML (LOVENOX) SYR SC SCH (09:30)
[2021-03-17] MEDS: ACETAMINOPHEN 500 MG TAB (TYLENOL) PO SCH ×2 (09:30→21:38)
[2021-03-17] MEDS: FERROUS SULF 325 MG (IRON) TAB PO SCH (09:37)
[2021-03-17] MEDS: DOCUSATE SODIUM 100 MG (COLACE) CAP PO SCH ×2 (09:39→21:38)
[2021-03-17] MEDS: polyethylene glycoL POWDER 17 GM (MIRALAX) PACK PO SCH ×2 (09:40→21:38)
[2021-03-17] MEDS: SENNA W/DOCUSATE (SENOKOT S) TABLET PO SCH ×2 (09:40→21:38)
--- NOTE | 2021-03-17 11:06 | Physical Therapy Daily Note ---
PT Daily Note-Current Subjective States that he is doing well. Pain Numeric Pain Scale: 5-Moderate Pain Transfers SCALE: Activities may be completed with or without assistive devices. 5-Unggxhjnof-rerlijt completes the activity by him/herself with no assistance from a helper. 5-Set-up or Clean-up Assistance-helper sets up or cleans up; patient completes activity. [place] assists only prior to or following the activity. 4-Supervision or Touching Assistance-helper provides verbal cues and/or touching/steadying and/or contact guard assistance as patient completes activity. Assistance may be provided throughout the activity or intermittently. 3-Partial/Moderate Assistance-helper does LESS THAN HALF the effort. [place] lifts, holds or supports trunk or limbs, but provides less than half the effort. 2-Substantial/Maximal Assistance-helper does MORE THAN HALF the effort. [place] lifts or holds trunk or limbs and provides more than half the effort. 8-Xvkopmosn-zjzgrb does ALL the effort. Patient does none of the effort to complete the activity. Or, the assistance of 2 or more helpers is required for the patient to complete the activity. If activity was not attempted, code reason: 7-Patient Refused. 9-Not Applicable-not attempted and the patient did not perform the activity before the current illness, exacerbation or injury. 10-Not Attempted due to Environmental Limitations-(lack of equipment, weather restraints, etc.). 88-Not Attempted due to Medical Conditions or Safety Concerns. Roll Left & Right (QC): 5 Sit to Lying (QC): 5 Lying to Sitting/Side of Bed(Q: 5 Sit to Stand (QC): 3 Chair/Btj-ie-Erzdk Xfer(QC): 3 Weight Bearing Right Lower Extremity: Right Touch Toe Bearing Left Lower Extremity: Left Full Weight Bearing Left and Right LE's demonstrates strength deficit from previous C5-T1 SCI Gait Training Does the Patient Walk?: No and Walking Goal IS indicated Wheelchair Training Does the Pt Use a Wheelchair?: Yes Wheel 50 ft with 2 turns (QC): 6 Wheel 150 ft (QC): 6 Exercises Seated Therapy Exercises: LE Protocol Seated Reps: 20 Standing: Sit to Stand Standing Reps: 5 Standing with reaching activities. Assessment Current Status: Excellent Progress THe patient did well with all standing activities during co-treat with OT secondary to safety during standing and transfers. PT Short Term Goals Short Term Goals Time Frame: Apr 05, 2021 Roll Left & Right: 6 Sit to lyin Lying to sitting on side of be: 5 Sit to stand: 3 Chair/zwd-lt-xtwje transfer: 3 Toilet transfer: 3 Car transfer: 3 Walk 10 feet: 2 Walk 50 feet with two turns: 88 Walk 150 feet: 88 Walking 10ft on uneven surface: 88 1 step (curb): 88 4 steps: 88 12 steps: 88 Picking up objects: 2 Does pt use a wc or scooter: Yes Wheel 50ft w/2 turns: 5 Wheel 150 feet: 5 Type: Manual PT Care Home Goals Flight Software Test Engineer Goals PT Flight Software Test Engineer Goals Time Frame: May 03, 2021 Roll Left & Right (QC): 6 Sit to Lying (QC): 6 Lying-Sitting on Side/Bed(QC): 6 Sit to Stand (QC): 5 Chair/Ylw-zo-Frvps Xfer(QC): 4 Toilet Transfer (QC): 4 Car Transfer (QC): 4 Does the Patient Walk: Yes Walk 10 feet (QC): 4 Walk 50ft with 2 Turns (QC): 3 Walk 150 ft (QC): 3 Walking 10ft on Uneven Surface: 3 1 Step (curb) (QC): 88 4 Steps (QC): 88 12 Steps (QC): 88 Picking up an Object (QC): 4 Does the Pt use WC or Scooter?: Yes Wheel 50 feet with 2 turns (QC: 6 Type: Manual Wheel 150 feet: 6 Type: Manual PT Plan Treatment/Plan Treatment Plan: Continue Plan of Care Treatment Plan: Bed Mobility, Education, Functional Activity [place]bo, Functional Strength, Group Therapy, Gait, Safety, Therapeutic Exercise, Transfers Treatment Duration: May 11, 2021 Frequency: At least 5 of 7 days/Wk (IRF) Estimated Hrs Per Day: 1.5 hours per day Patient and/or Family Agrees t: Yes Time/GCodes Time In: 924 Time Out: 1055 Total Billed Treatment Time: 90 Total Billed Treatment 1, EX x 30', FA x 60' CARISSA PETERSON PT Mar 17, 2021 11:06
--- NOTE | 2021-03-17 11:31 | Occupational Ther Daily Note ---
OT Current Status-Daily Note Subjective Reports pain as 5/10. Pain meds given at beginning of session. Appearance Returned to supine in bed, all needs within reach Mental Status/Objective Patient Orientation: Person, Place, Situation ADL-Treatment Therapy Code Descriptions/Definitions Functional [place] Measure: 0=Not Assessed/NA 4=Minimal Assistance 1=Total Assistance 5=Supervision or Setup 2=Maximal Assistance 6=Modified [place] 3=Moderate Assistance 7=Complete IndependenceSCALE: Activities may be completed with or without assistive devices. 5-Emoivpvtap-ifrmssh completes the activity by him/herself with no assistance from a helper. 5-Set-up or Clean-up Assistance-helper sets up or cleans up; patient completes activity. [place] assists only prior to or following the activity. 4-Supervision or Touching Assistance-helper provides verbal cues and/or touching/steadying and/or contact guard assistance as patient completes act ivity. Assistance may be provided throughout the activity or intermittently. 3-Partial/Moderate Assistance-helper does LESS THAN HALF the effort. [place] lifts, holds or supports trunk or limbs, but provides less than half the effort. 2-Substantial/Maximal Assistance-helper does MORE THAN HALF the effort. [place] lifts or holds trunk or limbs and provides more than half the effort. 0-Sighhgmee-nymbsm does ALL the effort. Patient does none of the effort to complete the activity. Or, the assistance of 2 or more helpers is required for the patient to complete the activity. If activity was not attempted, code reason: 7-Patient Refused. 9-Not Applicable-not attempted and the patient did not perform the activity before the current illness, exacerbation or injury. 10-Not Attempted due to Environmental Limitations-(lack of equipment, weather restraints, etc.). 88-Not Attempted due to Medical Conditions or Safety Concerns. Oral Hygiene (QC): 5 Toilet Transfer (QC): 1 Other Treatment Co-treat with PT due to impaired standing balance, activity tolerance, poor safety, and increased fall risk. Pt sitting in w/c at therapy arrival. When propelling self to bathroom, Mod cues required for safety and attention due to bumping RLE into wall multiple times. Grooming tasks performed at w/c level, set up only. Pt is speedy with all tasks and requires cues on pacing. In gym, he participated in multiple standing tasks with goal to improve standing tolerance, balance, endurance, and posture while adhering to TTWB on RLE. MAX x2 to vehicle maintenance technician parallel bars. Once upright, CGA-min a for balance needed. During first standing bout, pt able to tolerate ~5 min of standing but requires several reminders on maintaining weight bearing status as well as when going from sitting<>standing. OT placed crackers under pt's toes as tactile/audio cue to identify if applying weight through toes. Pt able to self correct with use of crackers. Pt only able to tolerate ~2 min when adhering to weight bearing precautions. While standing, he participated in multiple dynamic standing activities with goal to remove 1 UE support from bar while maintaining balance. At this time, pt only able to tolerate removing R hand for very brief moments (~2-3 seconds). Increased anxiety/fear exhibited when removing R over Left. Slide board transfer with min-mod a x2. Poor sequencing and safety demonstrated as pt is very impulsive with transfer and reports that "i've been doing this for 20+ years, i know what i'm doing." Education on proper/preferred sequencing and energy conservation techniques required. Education OT Patient Education: Correct positioning, Energy conservation, Exercise program, Modified ADL techniques, Progress toward Goal/Update tx plan, Purpose of tx/functional activities, Reviewed precautions, Rehab process, Safety issues, Transfer techniques, W/C management Teaching Recipient: Patient Teaching Methods: Demonstration Response to Teaching: Verbalize Understanding, Return Demonstration, Reinforcement Needed OT Short Term Goals Short Term Goals Time Frame: Mar 29, 2021 Toileting hygiene: 3 Shower/bathe self: 3 Lower body dressin Putting on/taking off footwear: 3 OT [facility] Goals Desktop Support Technician Goals Time Frame: Apr 13, 2021 Eating (QC): 6 Oral Hygiene (QC): 6 Toileting Hygiene (QC): 4 Shower/Bathe Self (QC): 4 Upper Body Dressing (QC): 5 Lower Body Dressing (QC): 4 On/Off Footwear (QC): 5 Additional Goals: 1-Demonstrate ADL Tasks, 2-Verbalize Understanding, 3- ImproveStrength/Debo 1=Demonstrate adherence to instructed precautions during ADL tasks. 2=Patient will verbalize/demonstrate understanding of assistive devices/modifications for ADL. 3=Patient will improve strength/tolerance for activity to enable patient to perform ADL's. OT Education/Plan Problem List/Assessment Assessment: Decreased Activ Tolerance, Decreased Safety Aware, Decreased UE Strength, Dependent Transfers, Impaired Bed Mobility, Impaired Funct Balance, Impaired I ADL's, Impaired Self-Care Skills, Restricted Funct UE ROM Discharge Recommendations Plan/Recommendations: Continue POC Treatment Plan/Plan of Care Treatment,Training & Education: Yes Patient would benefit from OT for education, treatment and training to promote i ndependence in ADL's, mobility, safety and/or upper extremity function for ADL's. Plan of Care: ADL Retraining, Functional Mobility, Group Exercise/Act as Ind, UE Funct Exercise/Act Treatment Duration: Apr 13, 2021 Frequency: At least 5 of 7 days/Wk (IRF) Estimated Hrs Per Day: 1.5 hours per day Agreement: Yes Rehab Potential: Fair Time/GCodes Start Time: 09:25 Stop Time: 10:55 Total Time Billed (hr/min): 90 Billed Treatment Time 1 visit, ADL FA x4 EX co-treat with PT for 90 min Candice Cox OT Mar 17, 2021 11:31
--- NOTE | 2021-03-17 13:11 | PM&R Progress Note ---
Subjective HPI/CC On Admission Date Seen by Provider: Mar 17, 2021 Time Seen by Provider: 13:15 Subjective/Events-last exam 03/17/2021: Patient doing very well Bowels are moving well Using slide board very well Lortab helps the pain Started baclofen to take at night for spasms 03/16/2021: Patient doing really well Took a shower today Refused laxatives due to loose stools Pain pills are managing the pain Participating in therapy Hemoglobin 7.8 will check iron level Review of Systems Musculoskeletal: leg pain Objective Exam Vital Signs Vital Signs Date Time Temp Pulse Resp B/P (MAP) Pulse Ox O2 Delivery O2 Flow Rate FiO2 03/17/21 21:40 Room Air 03/17/21 20:00 36.8 76 17 129/62 (84) 96 Capillary Refill : General Appearance: No Apparent Distress, WD/WN, Chronically ill HEENT: PERRL/EOMI, Normal ENT Inspection, Pharynx Normal Neck: Full Range of Motion, Normal Inspection, Non Tender, Supple, Carotid Bruit Respiratory: Chest Non Tender, Lungs Clear, Normal Breath Sounds, No Accessory Muscle Use, No Respiratory Distress Cardiovascular: Regular Rate, Rhythm, No Edema, No Gallop, No JVD, No Murmur, Normal Peripheral Pulses Gastrointestinal: Normal Bowel Sounds, No Organomegaly, No Pulsatile Mass, Non Tender, Soft Back: Normal Inspection, No CVA Tenderness, No Vertebral Tenderness Extremity: Normal Capillary Refill, Normal Inspection, Normal Range of Motion, Non Tender, No Calf Tenderness, No Pedal Edema Neurologic/Psychiatric: Alert, Oriented x3, Normal Mood/Affect, Abnormal Gait, Motor Weakness (Chronic left-sided weakness and minimal weightbearing on right) Skin: Normal Color, Warm/Dry Lymphatic: No Adenopathy Results/Procedures Lab Patient resulted labs reviewed. FIM Transfers Therapy Code Descriptions/Definitions Functional [place] Measure: 0=Not Assessed/NA 4=Minimal Assistance 1=Total Assistance 5=Supervision or Setup 2=Maximal Assistance 6=Modified [place] 3=Moderate Assistance 7=Complete IndependenceSCALE: Activities may be completed with or without assistive devices. 5-Mdmamelktz-pvaqajb completes the activity by him/herself with no assistance from a helper. 5-Set-up or Clean-up Assistance-helper sets up or cleans up; patient completes activity. [place] assists only prior to or following the activity. 4-Supervision or Touching Assistance-helper provides verbal cues and/or touching/steadying and/or contact guard assistance as patient completes activity. Assistance may be provided throughout the activity or intermittently. 3-Partial/Moderate Assistance-helper does LESS THAN HALF the effort. [place] lifts, holds or supports trunk or limbs, but provides less than half the effort. 2-Substantial/Maximal Assistance-helper does MORE THAN HALF the effort. [place] lifts or holds trunk or limbs and provides more than half the effort. 4-Otcumlgjr-aglsbf does ALL the effort. Patient does none of the effort to complete the activity. Or, the assistance of 2 or more helpers is required for the patient to complete the activity. If activity was not attempted, code reason: 7-Patient Refused. 9-Not Applicable-not attempted and the patient did not perform the activity before the current illness, exacerbation or injury. 10-Not Attempted due to Environmental Limitations-(lack of equipment, weather restraints, etc.). 88-Not Attempted due to Medical Conditions or Safety Concerns. Roll Left to Right (QC): 5 Sit to Lying (QC): 5 Sit to Stand (QC): 3 Chair/Fey-ss-Wwxoo Xfer(QC): 3 Car Transfer (QC): 88 Gait Training Does the Patient Walk?: No and Walking Goal IS indicated Walk 10 feet (QC): 88 Walk 50 ft with 2 Turns(QC): 88 Walk 150 ft (QC): 88 Walking 10ft/uneven surface-QC: 88 Gait Assistive Device: FWW Wheelchair Training Does the Pt Use a Wheelchair?: Yes Distance: 10 Wheel 50 ft with 2 turns (QC): 6 Wheel 150 ft (QC): 6 Type of Wheelchair: Manual Stair Training 1 Step (curb) (QC): 88 4 Steps (QC): 88 12 Steps (QC): 88 Balance Picking up an Object (QC): 88 ADL-Treatment Eating (QC): 6 (IND with lunch) Oral Hygiene (QC): 5 Shower/Bathe Self (QC): 7 Upper Body Dressing (QC): 5 (pt able to doff chain puller shirt) Lower Body Dressing (QC): 2 (Pt required max A doffing pants at bed level, utilizing side to side rolling.) On/Off Footwear (QC): 5 (After set up, using AE.) Toileting Hygiene (QC): 2 (Pt used urinal, spilling on pants. Required max A to doff soiled pants at bed level.) Toilet Transfer (QC): 1 Assessment/Plan Assessment and Plan Assess & Plan/Chief Complaint Assessment: Status post right hip fracture repair Oral tobacco use Alcohol use Hypertension Neurogenic bladder Cervical spine injury 1995 Anemia Plan: DVT prophylaxis Supportive care Bowel regimen 03/16/2021: Check iron level Participation in therapy Pain control 03/17/2021: Supportive care Aggressive rehab (1) Intertrochanteric fracture Status: Acute CHENG FARIAS DO Mar 17, 2021 13:11
[2021-03-17] MEDS: BACLOFEN 10 MG (LIORESAL) TAB PO PRN (17:44)
[2021-03-17] MEDS: ACETAMINOPHEN 325 MG TABLET PO PRN (17:45)
[2021-03-17 20:00] VITALS: BP 129/62
[2021-03-18 07:30] VITALS: BP 128/69
[2021-03-18] MEDS: ENOXAPARIN 40 MG/0.4 ML (LOVENOX) SYR SC SCH (08:10)
[2021-03-18] MEDS: ETODOLAC 300 MG (LODINE) CAP PO SCH ×2 (08:10→18:42)
[2021-03-18] MEDS: polyethylene glycoL POWDER 17 GM (MIRALAX) PACK PO SCH ×2 (08:38→20:22)
[2021-03-18] MEDS: SENNA W/DOCUSATE (SENOKOT S) TABLET PO SCH ×2 (08:38→20:22)
[2021-03-18] MEDS: DOCUSATE SODIUM 100 MG (COLACE) CAP PO SCH ×2 (08:38→20:22)
[2021-03-18] MEDS: DULoxetine 30 MG (CYMBALTA) CAP PO SCH (08:39)
[2021-03-18] MEDS: ACETAMINOPHEN 500 MG TAB (TYLENOL) PO SCH ×2 (08:39→20:21)
[2021-03-18] MEDS: lisINopril 20 MG (PRINIVIL) TABLET PO SCH (08:39)
--- NOTE | 2021-03-18 12:17 | PM&R Progress Note ---
Subjective HPI/CC On Admission Date Seen by Provider: Mar 18, 2021 Time Seen by Provider: 12:20 Subjective/Events-last exam 03/18/2021: Patient doing well Incontinence noted with bladder spasms so open to see urology Bowels are moving Incision looks good Baclofen is helped 03/17/2021: Patient doing very well Bowels are moving well Using slide board very well Lortab helps the pain Started baclofen to take at night for spasms 03/16/2021: Patient doing really well Took a shower today Refused laxatives due to loose stools Pain pills are managing the pain Participating in therapy Hemoglobin 7.8 will check iron level Review of Systems Genitourinary: Frequency, Incontinence Musculoskeletal: leg pain Objective Exam Vital Signs Vital Signs Date Time Temp Pulse Resp B/P (MAP) Pulse Ox O2 Delivery O2 Flow Rate FiO2 03/18/21 08:43 Room Air 03/18/21 07:30 36.6 73 20 128/69 (88) 96 Capillary Refill : General Appearance: No Apparent Distress, WD/WN, Chronically ill HEENT: PERRL/EOMI, Normal ENT Inspection, Pharynx Normal Neck: Full Range of Motion, Normal Inspection, Non Tender, Supple, Carotid Bruit Respiratory: Chest Non Tender, Lungs Clear, Normal Breath Sounds, No Accessory Muscle Use, No Respiratory Distress Cardiovascular: Regular Rate, Rhythm, No Edema, No Gallop, No JVD, No Murmur, Normal Peripheral Pulses Gastrointestinal: Normal Bowel Sounds, No Organomegaly, No Pulsatile Mass, Non Tender, Soft Back: Normal Inspection, No CVA Tenderness, No Vertebral Tenderness Extremity: Normal Capillary Refill, Normal Inspection, Normal Range of Motion, Non Tender, No Calf Tenderness, No Pedal Edema Neurologic/Psychiatric: Alert, Oriented x3, Normal Mood/Affect, Abnormal Gait, Motor Weakness (Chronic left-sided weakness and minimal weightbearing on right) Skin: Normal Color, Warm/Dry Lymphatic: No Adenopathy Results/Procedures Lab Patient resulted labs reviewed. FIM Transfers Therapy Code Descriptions/Definitions Functional [place] Measure: 0=Not Assessed/NA 4=Minimal Assistance 1=Total Assistance 5=Supervision or Setup 2=Maximal Assistance 6=Modified [place] 3=Moderate Assistance 7=Complete IndependenceSCALE: Activities may be completed with or without assistive devices. 5-Lyayiixplk-ahmjhvj completes the activity by him/herself with no assistance from a helper. 5-Set-up or Clean-up Assistance-helper sets up or cleans up; patient completes activity. [place] assists only prior to or following the activity. 4-Supervision or Touching Assistance-helper provides verbal cues and/or touching/steadying and/or contact guard assistance as patient completes activity. Assistance may be provided throughout the activity or intermittently. 3-Partial/Moderate Assistance-helper does LESS THAN HALF the effort. [place] lifts, holds or supports trunk or limbs, but provides less than half the effort. 2-Substantial/Maximal Assistance-helper does MORE THAN HALF the effort. [place] lifts or holds trunk or limbs and provides more than half the effort. 0-Ndlxadnsr-okgonl does ALL the effort. Patient does none of the effort to complete the activity. Or, the assistance of 2 or more helpers is required for the patient to complete the activity. If activity was not attempted, code reason: 7-Patient Refused. 9-Not Applicable-not attempted and the patient did not perform the activity before the current illness, exacerbation or injury. 10-Not Attempted due to Environmental Limitations-(lack of equipment, weather restraints, etc.). 88-Not Attempted due to Medical Conditions or Safety Concerns. Roll Left to Right (QC): 5 Sit to Lying (QC): 5 Sit to Stand (QC): 3 Chair/Myk-vo-Tqzce Xfer(QC): 3 Car Transfer (QC): 88 Gait Training Does the Patient Walk?: No and Walking Goal IS indicated Walk 10 feet (QC): 88 Walk 50 ft with 2 Turns(QC): 88 Walk 150 ft (QC): 88 Walking 10ft/uneven surface-QC: 88 Gait Assistive Device: FWW Wheelchair Training Does the Pt Use a Wheelchair?: Yes Distance: 10 Wheel 50 ft with 2 turns (QC): 6 Wheel 150 ft (QC): 6 Type of Wheelchair: Manual Stair Training 1 Step (curb) (QC): 88 4 Steps (QC): 88 12 Steps (QC): 88 Balance Picking up an Object (QC): 88 ADL-Treatment Eating (QC): 6 (IND with lunch) Oral Hygiene (QC): 5 Shower/Bathe Self (QC): 7 Upper Body Dressing (QC): 5 (pt able to doff green chain puller shirt) Lower Body Dressing (QC): 2 (Pt required max A doffing pants at bed level, utilizing side to side rolling.) On/Off Footwear (QC): 5 (After set up, using AE.) Toileting Hygiene (QC): 2 (Pt used urinal, spilling on pants. Required max A to doff soiled pants at bed level.) Toilet Transfer (QC): 1 Assessment/Plan Assessment and Plan Assess & Plan/Chief Complaint Assessment: Status post right hip fracture repair Oral tobacco use Alcohol use Hypertension Neurogenic bladder Cervical spine injury 1996 Anemia Neurogenic bladder dose self caths at home Plan: DVT prophylaxis Supportive care Bowel regimen 03/16/2021: Check iron level Participation in therapy Pain control 03/17/2021: Supportive care Aggressive rehab 03/18/2021: Urology follow-up Baclofen at night (1) Intertrochanteric fracture Status: Acute CHENG FARIAS DO Mar 18, 2021 12:17
[2021-03-18 19:54] VITALS: BP 133/68
[2021-03-18] MEDS: BACLOFEN 10 MG (LIORESAL) TAB PO PRN (20:21)
--- NOTE | 2021-03-19 05:47 | PM&R Progress Note ---
Subjective HPI/CC On Admission Date Seen by Provider: Mar 19, 2021 Time Seen by Provider: 10:00 Subjective/Events-last exam 03/19/2021: Patient doing well Urology will see him on Friday Detrol LA ordered Bowels are moving 03/18/2021: Patient doing well Incontinence noted with bladder spasms so open to see urology Bowels are moving Incision looks good Baclofen is helped 03/17/2021: Patient doing very well Bowels are moving well Using slide board very well Lortab helps the pain Started baclofen to take at night for spasms 03/16/2021: Patient doing really well Took a shower today Refused laxatives due to loose stools Pain pills are managing the pain Participating in therapy Hemoglobin 7.8 will check iron level Review of Systems General: Fatigue, Malaise Genitourinary: Incontinence Musculoskeletal: leg pain Objective Exam Vital Signs Vital Signs Date Time Temp Pulse Resp B/P (MAP) Pulse Ox O2 Delivery O2 Flow Rate FiO2 03/19/21 20:45 Room Air 03/19/21 20:00 36.8 93 20 114/55 (74) 95 Capillary Refill : General Appearance: No Apparent Distress, WD/WN, Chronically ill HEENT: PERRL/EOMI, Normal ENT Inspection, Pharynx Normal Neck: Full Range of Motion, Normal Inspection, Non Tender, Supple, Carotid Bruit Respiratory: Chest Non Tender, Lungs Clear, Normal Breath Sounds, No Accessory Muscle Use, No Respiratory Distress Cardiovascular: Regular Rate, Rhythm, No Edema, No Gallop, No JVD, No Murmur, Normal Peripheral Pulses Gastrointestinal: Normal Bowel Sounds, No Organomegaly, No Pulsatile Mass, Non Tender, Soft Back: Normal Inspection, No CVA Tenderness, No Vertebral Tenderness Extremity: Normal Capillary Refill, Normal Inspection, Normal Range of Motion, Non Tender, No Calf Tenderness, No Pedal Edema Neurologic/Psychiatric: Alert, Oriented x3, Normal Mood/Affect, Abnormal Gait, Motor Weakness (Chronic left-sided weakness and minimal weightbearing on right) Skin: Normal Color, Warm/Dry Lymphatic: No Adenopathy Results/Procedures Lab Laboratory Tests 03/19/21 06:47 Patient resulted labs reviewed. FIM Transfers Therapy Code Descriptions/Definitions Functional [place] Measure: 0=Not Assessed/NA 4=Minimal Assistance 1=Total Assistance 5=Supervision or Setup 2=Maximal Assistance 6=Modified [place] 3=Moderate Assistance 7=Complete IndependenceSCALE: Activities may be completed with or without assistive devices. 9-Ewxuykosbv-mvcypbg completes the activity by him/herself with no assistance from a helper. 5-Set-up or Clean-up Assistance-helper sets up or cleans up; patient completes activity. [place] assists only prior to or following the activity. 4-Supervision or Touching Assistance-helper provides verbal cues and/or touching/steadying and/or contact guard assistance as patient completes activity. Assistance may be provided throughout the activity or intermittently. 3-Partial/Moderate Assistance-helper does LESS THAN HALF the effort. [place] lifts, holds or supports trunk or limbs, but provides less than half the effort. 2-Substantial/Maximal Assistance-helper does MORE THAN HALF the effort. [place] lifts or holds trunk or limbs and provides more than half the effort. 6-Oaajijaum-qqoubh does ALL the effort. Patient does none of the effort to complete the activity. Or, the assistance of 2 or more helpers is required for the patient to complete the activity. If activity was not attempted, code reason: 7-Patient Refused. 9-Not Applicable-not attempted and the patient did not perform the activity before the current illness, exacerbation or injury. 10-Not Attempted due to Environmental Limitations-(lack of equipment, weather restraints, etc.). 88-Not Attempted due to Medical Conditions or Safety Concerns. Roll Left to Right (QC): 5 Sit to Lying (QC): 5 Sit to Stand (QC): 3 Chair/Zqa-nf-Tunlf Xfer(QC): 3 Car Transfer (QC): 88 Gait Training Does the Patient Walk?: No and Walking Goal IS indicated Walk 10 feet (QC): 88 Walk 50 ft with 2 Turns(QC): 88 Walk 150 ft (QC): 88 Walking 10ft/uneven surface-QC: 88 Gait Assistive Device: FWW Wheelchair Training Does the Pt Use a Wheelchair?: Yes Distance: 10 Wheel 50 ft with 2 turns (QC): 6 Wheel 150 ft (QC): 6 Type of Wheelchair: Manual Stair Training 1 Step (curb) (QC): 88 4 Steps (QC): 88 12 Steps (QC): 88 Balance Picking up an Object (QC): 88 ADL-Treatment Eating (QC): 6 (IND with lunch) Oral Hygiene (QC): 5 Shower/Bathe Self (QC): 7 Upper Body Dressing (QC): 5 (pt able to doff head well puller shirt) Lower Body Dressing (QC): 2 (Pt required max A doffing pants at bed level, utilizing side to side rolling.) On/Off Footwear (QC): 5 (After set up, using AE.) Toileting Hygiene (QC): 2 (Pt used urinal, spilling on pants. Required max A to doff soiled pants at bed level.) Toilet Transfer (QC): 1 Assessment/Plan Assessment and Plan Assess & Plan/Chief Complaint Assessment: Status post right hip fracture repair Oral tobacco use Alcohol use Hypertension Neurogenic bladder Cervical spine injury 1996 Anemia Neurogenic bladder dose self caths at home Plan: DVT prophylaxis Supportive care Bowel regimen 03/16/2021: Check iron level Participation in therapy Pain control 03/17/2021: Supportive care Aggressive rehab 03/18/2021: Urology follow-up Baclofen at night 03/19/2021: None appreciate urology Detrol LA started (1) Intertrochanteric fracture Status: Acute CHENG FARIAS DO Mar 19, 2021 05:47
[2021-03-19] MEDS: HYDROcodone/APAP 7.5 MG/325 MG (LORTAB, LORCET PLUS) TABLET PO PRN ×3 (06:26→18:27)
[2021-03-19 07:02] LABS: BASOPHILS # (AUTO) 0.1 10^3/uL (0.0-0.1); BASOPHILS % (AUTO) 1 % (0-10); EOSINOPHILS # (AUTO) 0.3 10^3/uL (0.0-0.3); EOSINOPHILS % (AUTO) 5 % (0-10); HEMATOCRIT 28 % (40-54); HEMOGLOBIN 8.7 g/dL (13.3-17.7); LYMPHOCYTES % (AUTO) 17 % (12-44); MEAN CORPUSCULAR HEMOGLOBIN 30 pg (25-34); MEAN CORPUSCULAR HGB CONC 31 g/dL (32-36); MEAN CORPUSCULAR VOLUME 95 fL (80-99); MEAN PLATELET VOLUME 9.3 fL (9.0-12.2); MONOCYTES # (AUTO) 0.6 10^3/uL (0.0-1.0); MONOCYTES % (AUTO) 11 % (0-12); NEUTROPHILS # (AUTO) 3.8 10^3/uL (1.8-7.8); NEUTROPHILS % (AUTO) 65 % (42-75); PLATELET COUNT 240 10^3/uL (130-400); WHITE BLOOD COUNT 5.8 10^3/uL (4.3-11.0)
[2021-03-19 07:20] LABS: ALBUMIN 3.2 GM/DL (3.2-4.5); BILIRUBIN,TOTAL 0.9 MG/DL (0.1-1.0); CALCIUM 8.5 MG/DL (8.5-10.1); CREATININE SERUM 0.75 MG/DL (0.60-1.30); POTASSIUM 4.1 MMOL/L (3.6-5.0)
[2021-03-19 07:48] VITALS: BP 125/65
[2021-03-19] MEDS: ETODOLAC 300 MG (LODINE) CAP PO SCH ×2 (08:23→17:41)
[2021-03-19] MEDS: ENOXAPARIN 40 MG/0.4 ML (LOVENOX) SYR SC SCH (08:24)
[2021-03-19] MEDS: polyethylene glycoL POWDER 17 GM (MIRALAX) PACK PO SCH (08:24)
[2021-03-19] MEDS: SENNA W/DOCUSATE (SENOKOT S) TABLET PO SCH (08:24)
[2021-03-19] MEDS: DOCUSATE SODIUM 100 MG (COLACE) CAP PO SCH (08:25)
[2021-03-19] MEDS: DULoxetine 30 MG (CYMBALTA) CAP PO SCH (08:31)
[2021-03-19] MEDS: FERROUS SULF 325 MG (IRON) TAB PO SCH (08:31)
[2021-03-19] MEDS: lisINopril 20 MG (PRINIVIL) TABLET PO SCH (08:32)
[2021-03-19] MEDS: ACETAMINOPHEN 500 MG TAB (TYLENOL) PO SCH ×2 (08:32→20:44)
--- NOTE | 2021-03-19 09:54 | Physical Therapy Daily Note ---
PT Daily Note-Current Subjective Pt in bed upon arrival and agrees to co-treat. Pt has no c/o pain at this time. Use of 2 skilled clinicians d/t pt poor mobility, transfers, pt impulsiveness, safety, weakness, and decrease risk of falls. Mental Status Patient Orientation: Person, Confused, Place, Situation Transfers SCALE: Activities may be completed with or without assistive devices. 4-Ybqizloxsi-sfuvuso completes the activity by him/herself with no assistance from a helper. 5-Set-up or Clean-up Assistance-helper sets up or cleans up; patient completes activity. [place] assists only prior to or following the activity. 4-Supervision or Touching Assistance-helper provides verbal cues and/or touching/steadying and/or contact guard assistance as patient completes activity. Assistance may be provided throughout the activity or intermittently. 3-Partial/Moderate Assistance-helper does LESS THAN HALF the effort. [place] lifts, holds or supports trunk or limbs, but provides less than half the effort. 2-Substantial/Maximal Assistance-helper does MORE THAN HALF the effort. [place] lifts or holds trunk or limbs and provides more than half the effort. 8-Bhurbqwsr-hrbpgg does ALL the effort. Patient does none of the effort to complete the activity. Or, the assistance of 2 or more helpers is required for the patient to complete the activity. If activity was not attempted, code reason: 7-Patient Refused. 9-Not Applicable-not attempted and the patient did not perform the activity before the current illness, exacerbation or injury. 10-Not Attempted due to Environmental Limitations-(lack of equipment, weather restraints, etc.). 88-Not Attempted due to Medical Conditions or Safety Concerns. Roll Left & Right (QC): 5 Lying to Sitting/Side of Bed(Q: 5 Chair/Pxo-ie-Cleha Xfer(QC): 3 Toilet Transfer (QC): 3 Weight Bearing Right Lower Extremity: Right Touch Toe Bearing Left Lower Extremity: Left Full Weight Bearing Left and Right LE's demonstrates strength deficit from previous C5-T1 SCI Wheelchair Training Does the Pt Use a Wheelchair?: Yes Treatments OT focused on showering, dressing, and UE positioning. PT focused on mobility, transfers, and LE positioning. Pt completes bed mobility and sits EOB. Pt transfers to [facility] with slide board ModA. Pt able to doff brief and clean self on BSC SBA. Pt then slide board transfers to WC and propels self to bathroom. Pt transfers to shower bench to complete shower. Pt then transfers back to WC and dons clothing. Pt maneuvers WC around bathroom and room to complete ADLs. Pt remains in WC with OT at end of tx with all needs met. Assessment Current Status: Fair Progress Pt very impulsive, repeatedly requiring VC and TC to wait for A to complete tasks such as transfers. Pt easily loses focus throughout tx PT Short Term Goals Short Term Goals Time Frame: Apr 05, 2021 Roll Left & Right: 6 Sit to lyin Lying to sitting on side of be: 5 Sit to stand: 3 Chair/bre-lx-twlvo transfer: 3 Toilet transfer: 3 Car transfer: 3 Walk 10 feet: 2 Walk 50 feet with two turns: 88 Walk 150 feet: 88 Walking 10ft on uneven surface: 88 1 step (curb): 88 4 steps: 88 12 steps: 88 Picking up objects: 2 Does pt use a wc or scooter: Yes Wheel 50ft w/2 turns: 5 Wheel 150 feet: 5 Type: Manual PT Provider Service Representative Goals Provider Service Representative Goals PT Fdc Goals Time Frame: May 03, 2021 Roll Left & Right (QC): 6 Sit to Lying (QC): 6 Lying-Sitting on Side/Bed(QC): 6 Sit to Stand (QC): 5 Chair/Mci-ye-Uywie Xfer(QC): 4 Toilet Transfer (QC): 4 Car Transfer (QC): 4 Does the Patient Walk: Yes Walk 10 feet (QC): 4 Walk 50ft with 2 Turns (QC): 3 Walk 150 ft (QC): 3 Walking 10ft on Uneven Surface: 3 1 Step (curb) (QC): 88 4 Steps (QC): 88 12 Steps (QC): 88 Picking up an Object (QC): 4 Does the Pt use WC or Scooter?: Yes Wheel 50 feet with 2 turns (QC: 6 Type: Manual Wheel 150 feet: 6 Type: Manual PT Plan Problem List Problem List: Activity Tolerance, Functional Strength, Safety, Transfer Treatment/Plan Treatment Plan: Continue Plan of Care Treatment Plan: Bed Mobility, Education, Functional Activity Debo, Functional Strength, Group Therapy, Gait, Safety, Therapeutic Exercise, Transfers Treatment Duration: May 11, 2021 Frequency: At least 5 of 7 days/Wk (IRF) Estimated Hrs Per Day: 1.5 hours per day Patient and/or Family Agrees t: Yes Safety Risks/Education Patient Education: Transfer Techniques, W/C Management, Safety Issues Teaching Recipient: Patient Teaching Methods: Discussion Response to Teaching: Reinforcement Needed Time/GCodes Time In: 900 Time Out: 1000 Total Billed Treatment Time: 60 Total Billed Treatment 1, FA x4 MOIRA [place] RAPID TRANSIT OPERATOR Mar 19, 2021 09:54
--- NOTE | 2021-03-19 10:03 | Occupational Ther Daily Note ---
OT Current Status-Daily Note Subjective Pt laying in bed, agreeable to OT/PT cotreat Mental Status/Objective Patient Orientation: Person, Place, Time, Situation ADL-Treatment Therapy Code Descriptions/Definitions Functional [place] Measure: 0=Not Assessed/NA 4=Minimal Assistance 1=Total Assistance 5=Supervision or Setup 2=Maximal Assistance 6=Modified [place] 3=Moderate Assistance 7=Complete IndependenceSCALE: Activities may be completed with or without assistive devices. 1-Eepwvqxkxh-dzldclp completes the activity by him/herself with no assistance from a helper. 5-Set-up or Clean-up Assistance-helper sets up or cleans up; patient completes activity. [place] assists only prior to or following the activity. 4-Supervision or Touching Assistance-helper provides verbal cues and/or touching/steadying and/or contact guard assistance as patient completes activity. Assistance may be provided throughout the activity or intermittently. 3-Partial/Moderate Assistance-helper does LESS THAN HALF the effort. [place] lifts, holds or supports trunk or limbs, but provides less than half the effort. 2-Substantial/Maximal Assistance-helper does MORE THAN HALF the effort. [place] lifts or holds trunk or limbs and provides more than half the effort. 1-Ybrmpfjaq-ajxzsq does ALL the effort. Patient does none of the effort to complete the activity. Or, the assistance of 2 or more helpers is required for the patient to complete the activity. If activity was not attempted, code reason: 7-Patient Refused. 9-Not Applicable-not attempted and the patient did not perform the activity before the current illness, exacerbation or injury. 10-Not Attempted due to Environmental Limitations-(lack of equipment, weather restraints, etc.). 88-Not Attempted due to Medical Conditions or Safety Concerns. Eating (QC): 6 (IND with breakfast per report.) Shower/Bathe Self (QC): 4 (SBA, pt able to wash/dry all parts seated on SC) Upper Body Dressing (QC): 5 (set up) Lower Body Dressing (QC): 1 (Assist x2 in stand for pant hike. Pt able to thread BLEs into pants, assist with pant hike) On/Off Footwear: 3 (Pt able to doff LLE gripper sock, assist RLE. OT donned TedHose, pt able to don bilateral socks.) Toileting Hygiene (QC): 1 (Assist x2 in stand for pant hike. ) Toilet Transfer (QC): 3 (Mod A via slide board.) Other Treatment [id number]: OT/PT cotreat due to skill of 2 clinicians required that a technology assistant could not perform in order to coordinate UE/LEs, decrease fall risk, and due to pt's limitations in transfers/mobility, impulsivity, and strength. OT focused on UE placement, UE placement, cues for sequencing and safety. PT focused on LE placement, gross overall movement, and transfers/mobility. Pt transferred from EOB to BSC via slide board, requiring cues to slow down due to fast movements. Pt completed toileting, then transferred to w/c, taken into bathroom, transferred to AK. Pt completed shower, then transferred to w/c to don clothing. Assist x2 required in stand for pant hike. [id number] OT tx, pt propelled w/c to therapy gym. In order to increase BUE strength and activity tolerance, pt completed arm bike, x15 mins, 25 watt resistance, no rest breaks. Pt then completed nut/bolt task, 2lb wrist weights BUEs. Pt removed nut/bolts from block, then replaced them, x16. Pt propelled w/c around [facility] common area/2nd floor, then back to his room. Post tx, pt up in w/c, call light in reach and all needs met. Education OT Patient Education: Correct positioning, Energy conservation, Modified ADL techniques, Progress toward Goal/Update tx plan, Purpose of tx/functional activities, Rehab process Teaching Recipient: Patient Teaching Methods: Discussion Response to Teaching: Verbalize Understanding OT Short Term Goals Short Term Goals Time Frame: Mar 29, 2021 Toileting hygiene: 3 Shower/bathe self: 3 Lower body dressin Putting on/taking off footwear: 3 OT Penitentiary Goals Penitentiary Goals Time Frame: Apr 13, 2021 Eating (QC): 6 Oral Hygiene (QC): 6 Toileting Hygiene (QC): 4 Shower/Bathe Self (QC): 4 Upper Body Dressing (QC): 5 Lower Body Dressing (QC): 4 On/Off Footwear (QC): 5 Additional Goals: 1-Demonstrate ADL Tasks, 2-Verbalize Understanding, 3- ImproveStrength/Debo 1=Demonstrate adherence to instructed precautions during ADL tasks. 2=Patient will verbalize/demonstrate understanding of assistive devices/modifications for ADL. 3=Patient will improve strength/tolerance for activity to enable patient to perform ADL's. OT Education/Plan Problem List/Assessment Assessment: Decreased Activ Tolerance, Impaired Funct Balance, Impaired I ADL's, Impaired Self-Care Skills Discharge Recommendations Plan/Recommendations: Continue POC Treatment Plan/Plan of Care Patient would benefit from OT for education, treatment and training to promote independence in ADL's, mobility, safety and/or upper extremity function for ADL's. Plan of Care: ADL Retraining, Functional Mobility, Group Exercise/Act as Ind, UE Funct Exercise/Act Treatment Duration: Apr 13, 2021 Frequency: At least 5 of 7 days/Wk (IRF) Estimated Hrs Per Day: 1.5 hours per day Agreement: Yes Rehab Potential: Fair Time/GCodes Start Time: 09:00 Stop Time: 10:30 Total Time Billed (hr/min): 90 Billed Treatment Time 4093-5115 OT/PT cotreat, 3596-2440 OT tx. 1, ADL 4 (60'), EX (15'), FA (15') SOURAV TALBOT OT Mar 19, 2021 10:03
--- NOTE | 2021-03-19 14:30 | Physical Therapy Daily Note ---
PT Daily Note-Current Subjective Pt in in halls upon arrival, states no pain but discomfort in R hip. Post tx, states pain but doesn't rate out of 10, RN notified. Mental Status Patient Orientation: Person, Place, Time, Situation Transfers SCALE: Activities may be completed with or without assistive devices. 6-Zcgviapqqw-tjlgsvp completes the activity by him/herself with no assistance from a helper. 5-Set-up or Clean-up Assistance-helper sets up or cleans up; patient completes activity. [place] assists only prior to or following the activity. 4-Supervision or Touching Assistance-helper provides verbal cues and/or touching/steadying and/or contact guard assistance as patient completes activity. Assistance may be provided throughout the activity or intermittently. 3-Partial/Moderate Assistance-helper does LESS THAN HALF the effort. [place] lifts, holds or supports trunk or limbs, but provides less than half the effort. 2-Substantial/Maximal Assistance-helper does MORE THAN HALF the effort. [place] lifts or holds trunk or limbs and provides more than half the effort. 9-Ebebtjpyz-bupmid does ALL the effort. Patient does none of the effort to complete the activity. Or, the assistance of 2 or more helpers is required for the patient to complete the activity. If activity was not attempted, code reason: 7-Patient Refused. 9-Not Applicable-not attempted and the patient did not perform the activity befo re the current illness, exacerbation or injury. 10-Not Attempted due to Environmental Limitations-(lack of equipment, weather re straints, etc.). 88-Not Attempted due to Medical Conditions or Safety Concerns. Sit to Stand (QC): 3 ModA sit to innovation analyst // bars x3 Weight Bearing Right Lower Extremity: Right Touch Toe Bearing Left Lower Extremity: Left Full Weight Bearing Left and Right LE's demonstrates strength deficit from previous C5-T1 SCI Gait Training Does the Patient Walk?: No and Walking Goal IS indicated Wheelchair Training Does the Pt Use a Wheelchair?: Yes Wheel 50 ft with 2 turns (QC): 6 Wheel 150 ft (QC): 6 Type of Wheelchair: Manual Treatments Pt in , propels self 300' on ARU and enters therapy gym. Pt completes sit to innovation analyst // bars, holds standing 3 minutes w/ TTWB on R LE. Pt sit to stand 2 more times, holds for 1 minute then has rest break. Pt propels self back to room and remains in WC with all needs met, call light in hand. Assessment Current Status: Fair Progress Pt requires frequent rest breaks, loses focus easily PT Short Term Goals Short Term Goals Time Frame: Apr 05, 2021 Roll Left & Right: 6 Sit to lyin Lying to sitting on side of be: 5 Sit to stand: 3 Chair/wzn-ej-aeubh transfer: 3 Toilet transfer: 3 Car transfer: 3 Walk 10 feet: 2 Walk 50 feet with two turns: 88 Walk 150 feet: 88 Walking 10ft on uneven surface: 88 1 step (curb): 88 4 steps: 88 12 steps: 88 Picking up objects: 2 Does pt use a wc or scooter: Yes Wheel 50ft w/2 turns: 5 Wheel 150 feet: 5 Type: Manual PT Retirement Goals Testing Coordinator Goals PT Testing Coordinator Goals Time Frame: May 03, 2021 Roll Left & Right (QC): 6 Sit to Lying (QC): 6 Lying-Sitting on Side/Bed(QC): 6 Sit to Stand (QC): 5 Chair/Iay-rn-Qlpgs Xfer(QC): 4 Toilet Transfer (QC): 4 Car Transfer (QC): 4 Does the Patient Walk: Yes Walk 10 feet (QC): 4 Walk 50ft with 2 Turns (QC): 3 Walk 150 ft (QC): 3 Walking 10ft on Uneven Surface: 3 1 Step (curb) (QC): 88 4 Steps (QC): 88 12 Steps (QC): 88 Picking up an Object (QC): 4 Does the Pt use WC or Scooter?: Yes Wheel 50 feet with 2 turns (QC: 6 Type: Manual Wheel 150 feet: 6 Type: Manual PT Plan Problem List Problem List: Activity Tolerance, Functional Strength, Safety, Gait, Transfer Treatment/Plan Treatment Plan: Continue Plan of Care Treatment Plan: Bed Mobility, Education, Functional Activity Debo, Functional Strength, Group Therapy, Gait, Safety, Therapeutic Exercise, Transfers Treatment Duration: May 11, 2021 Frequency: At least 5 of 7 days/Wk (IRF) Estimated Hrs Per Day: 1.5 hours per day Patient and/or Family Agrees t: Yes Safety Risks/Education Patient Education: Correct Positioning, W/C Management, Safety Issues Teaching Recipient: Patient Teaching Methods: Discussion Response to Teaching: Verbalize Understanding, Reinforcement Needed Time/GCodes Time In: 1400 Time Out: 1430 Total Billed Treatment Time: 30 Total Billed Treatment 1, LEDY, MOIRA SAWYER ADVENTURE EDUCATION TEACHER Mar 19, 2021 14:30
[2021-03-19 20:00] VITALS: BP 114/55
[2021-03-19] MEDS: TOLTERODINE LA 4 MG (DETROL) CAP PO SCH (20:44)
[2021-03-19] MEDS: BACLOFEN 10 MG (LIORESAL) TAB PO PRN (20:44)
[2021-03-19] MEDS ORDERED: polyethylene glycoL POWDER 17 GM (MIRALAX) PACK PO PRN (21:00)
[2021-03-19] MEDS ORDERED: DOCUSATE SODIUM 100 MG (COLACE) CAP PO PRN (21:00)
[2021-03-19] MEDS ORDERED: SENNA W/DOCUSATE (SENOKOT S) TABLET PO PRN (21:00)
[2021-03-20] MEDS: HYDROcodone/APAP 7.5 MG/325 MG (LORTAB, LORCET PLUS) TABLET PO PRN ×2 (06:55→10:58)
[2021-03-20 07:19] VITALS: BP 137/60
[2021-03-20 07:42] VITALS: BP 126/62
[2021-03-20] MEDS: lisINopril 20 MG (PRINIVIL) TABLET PO SCH (08:04)
[2021-03-20] MEDS: DULoxetine 30 MG (CYMBALTA) CAP PO SCH (08:05)
[2021-03-20] MEDS: ETODOLAC 300 MG (LODINE) CAP PO SCH ×2 (08:05→17:20)
[2021-03-20] MEDS: ACETAMINOPHEN 500 MG TAB (TYLENOL) PO SCH ×2 (08:05→20:45)
[2021-03-20] MEDS: ENOXAPARIN 40 MG/0.4 ML (LOVENOX) SYR SC SCH (08:06)
--- NOTE | 2021-03-20 08:55 | PM&R Progress Note ---
Subjective HPI/CC On Admission Date Seen by Provider: Mar 20, 2021 Time Seen by Provider: 08:40 Subjective/Events-last exam 03/20/2021: Pt doing really well No major issues Checked meds and labs Detrol LA really helping him Pain is controlled Participating in therapy 03/19/2021: Patient doing well Urology will see him on Friday Detrol LA ordered Bowels are moving 03/18/2021: Patient doing well Incontinence noted with bladder spasms so open to see urology Bowels are moving Incision looks good Baclofen is helped 03/17/2021: Patient doing very well Bowels are moving well Using slide board very well Lortab helps the pain Started baclofen to take at night for spasms 03/16/2021: Patient doing really well Took a shower today Refused laxatives due to loose stools Pain pills are managing the pain Participating in therapy Hemoglobin 7.8 will check iron level Review of Systems General: Fatigue, Malaise Musculoskeletal: leg pain Objective Exam Vital Signs Vital Signs Date Time Temp Pulse Resp B/P (MAP) Pulse Ox O2 Delivery O2 Flow Rate FiO2 03/20/21 20:48 Room Air 03/20/21 20:00 36.0 77 19 117/59 (78) 95 Capillary Refill : General Appearance: No Apparent Distress, WD/WN, Chronically ill HEENT: PERRL/EOMI, Normal ENT Inspection, Pharynx Normal Neck: Full Range of Motion, Normal Inspection, Non Tender, Supple, Carotid Bruit Respiratory: Chest Non Tender, Lungs Clear, Normal Breath Sounds, No Accessory Muscle Use, No Respiratory Distress Cardiovascular: Regular Rate, Rhythm, No Edema, No Gallop, No JVD, No Murmur, Normal Peripheral Pulses Gastrointestinal: Normal Bowel Sounds, No Organomegaly, No Pulsatile Mass, Non Tender, Soft Back: Normal Inspection, No CVA Tenderness, No Vertebral Tenderness Extremity: Normal Capillary Refill, Normal Inspection, Normal Range of Motion, Non Tender, No Calf Tenderness, No Pedal Edema Neurologic/Psychiatric: Alert, Oriented x3, Normal Mood/Affect, Abnormal Gait, Motor Weakness (Chronic left-sided weakness and minimal weightbearing on right) Skin: Normal Color, Warm/Dry Lymphatic: No Adenopathy Results/Procedures Lab Patient resulted labs reviewed. FIM Transfers Therapy Code Descriptions/Definitions Functional Major Measure: 0=Not Assessed/NA 4=Minimal Assistance 1=Total Assistance 5=Supervision or Setup 2=Maximal Assistance 6=Modified Major 3=Moderate Assistance 7=Complete IndependenceSCALE: Activities may be completed with or without assistive devices. 2-Koptaplmty-iijaskb completes the activity by him/herself with no assistance from a helper. 5-Set-up or Clean-up Assistance-helper sets up or cleans up; patient completes activity. Sandy assists only prior to or following the activity. 4-Supervision or Touching Assistance-helper provides verbal cues and/or touching/steadying and/or contact guard assistance as patient completes activity. Assistance may be provided throughout the activity or intermittently. 3-Partial/Moderate Assistance-helper does LESS THAN HALF the effort. Sandy lifts, holds or supports trunk or limbs, but provides less than half the effort. 2-Substantial/Maximal Assistance-helper does MORE THAN HALF the effort. [place] lifts or holds trunk or limbs and provides more than half the effort. 5-Sqlbghqxr-qrhebg does ALL the effort. Patient does none of the effort to complete the activity. Or, the assistance of 2 or more helpers is required for the patient to complete the activity. If activity was not attempted, code reason: 7-Patient Refused. 9-Not Applicable-not attempted and the patient did not perform the activity before the current illness, exacerbation or injury. 10-Not Attempted due to Environmental Limitations-(lack of equipment, weather restraints, etc.). 88-Not Attempted due to Medical Conditions or Safety Concerns. Roll Left to Right (QC): 5 Sit to Lying (QC): 5 Sit to Stand (QC): 3 Chair/Wbw-uz-Auchb Xfer(QC): 3 Car Transfer (QC): 88 Gait Training Does the Patient Walk?: No and Walking Goal IS indicated Walk 10 feet (QC): 88 Walk 50 ft with 2 Turns(QC): 88 Walk 150 ft (QC): 88 Walking 10ft/uneven surface-QC: 88 Gait Assistive Device: FWW Wheelchair Training Does the Pt Use a Wheelchair?: Yes Distance: 10 Wheel 50 ft with 2 turns (QC): 6 Wheel 150 ft (QC): 6 Type of Wheelchair: Manual Stair Training 1 Step (curb) (QC): 88 4 Steps (QC): 88 12 Steps (QC): 88 Balance Picking up an Object (QC): 88 ADL-Treatment Eating (QC): 6 (IND with breakfast per report.) Oral Hygiene (QC): 5 Shower/Bathe Self (QC): 4 (SBA, pt able to wash/dry all parts seated on SC) Upper Body Dressing (QC): 5 (set up) Lower Body Dressing (QC): 1 (Assist x2 in stand for pant hike. Pt able to thread BLEs into pants, assist with pant hike) On/Off Footwear (QC): 3 (Pt able to doff LLE gripper sock, assist RLE. OT donned TedHose, pt able to don bilateral socks.) Toileting Hygiene (QC): 1 (Assist x2 in stand for pant hike. ) Toilet Transfer (QC): 3 (Mod A via slide board.) Assessment/Plan Assessment and Plan Assess & Plan/Chief Complaint Assessment: Status post right hip fracture repair Oral tobacco use Alcohol use Hypertension Neurogenic bladder Cervical spine injury 1996 Anemia Neurogenic bladder dose self caths at home Plan: DVT prophylaxis Supportive care Bowel regimen 03/16/2021: Check iron level Participation in therapy Pain control 03/17/2021: Supportive care Aggressive rehab 03/18/2021: Urology follow-up Baclofen at night 03/19/2021: None appreciate urology Detrol LA started 03/20/2021: Doing well with therapy Monitor closely (1) Intertrochanteric fracture Status: Acute CHENG FARIAS DO Mar 20, 2021 08:55
--- NOTE | 2021-03-20 10:29 | Physical Therapy Daily Note ---
PT Daily Note-Current Subjective Pt in bed upon arrival and agrees to tx. Pt states no pain prior to tx, pt states he feels stronger today. Mental Status Patient Orientation: Person, Place, Time, Situation Transfers SCALE: Activities may be completed with or without assistive devices. 8-Gxupopammm-lykhlvm completes the activity by him/herself with no assistance from a helper. 5-Set-up or Clean-up Assistance-helper sets up or cleans up; patient completes activity. [place] assists only prior to or following the activity. 4-Supervision or Touching Assistance-helper provides verbal cues and/or touching/steadying and/or contact guard assistance as patient completes activity. Assistance may be provided throughout the activity or intermittently. 3-Partial/Moderate Assistance-helper does LESS THAN HALF the effort. [place] lifts, holds or supports trunk or limbs, but provides less than half the effort. 2-Substantial/Maximal Assistance-helper does MORE THAN HALF the effort. [place] lifts or holds trunk or limbs and provides more than half the effort. 8-Qewnvkino-ccocqd does ALL the effort. Patient does none of the effort to complete the activity. Or, the assistance of 2 or more helpers is required for the patient to complete the activity. If activity was not attempted, code reason: 7-Patient Refused. 9-Not Applicable-not attempted and the patient did not perform the activity before the current illness, exacerbation or injury. 10-Not Attempted due to Environmental Limitations-(lack of equipment, weather restraints, etc.). 88-Not Attempted due to Medical Conditions or Safety Concerns. Roll Left & Right (QC): 5 Sit to Lying (QC): 5 Lying to Sitting/Side of Bed(Q: 5 Sit to Stand (QC): 3 Chair/Smj-eu-Argba Xfer(QC): 3 Toilet Transfer (QC): 3 Pt sit to stand, attempts w/ bars in bathroom but unable to complete. Pt attempts in room w/ WC arms and FWW but unable to complete. Pt sit to health information assistant // bars w/ ModA. Pt sit to stand using arms of WC Mihai. Weight Bearing Right Lower Extremity: Right Touch Toe Bearing Left Lower Extremity: Left Full Weight Bearing Left and Right LE's demonstrates strength deficit from previous C5-T1 SCI Gait Training Does the Patient Walk?: Yes Distance: 8', 6' x2, 4' Gait Assistive Device: FWW Pt amb 6' x2 and 4' in // bars, requiring Mihai/CGA and WC follow. Pt able to maintain TTWB throughout gait bouts. Pt amb 8' w/ FWW and Mihai with WC follow. Wheelchair Training Does the Pt Use a Wheelchair?: Yes Wheel 50 ft with 2 turns (QC): 6 Wheel 150 ft (QC): 6 Type of Wheelchair: Manual Treatments : Pt in bed and completes bed mobility to sit EOB. Pt slide board transfers to [facility], doffs brief and cleans self SBA while seated. Pt then slide board transfers to , OT enters tx at this time. -1029 Co-treat: Use of 2 skilled clinicians d/t pt poor mobility, amb, tr ansfers, weakness, and safety. OT focused on dressing, UE positioning and strengthening. PT focused on mobility, amb, and LE strengthening. Pt dons brief/pants and changes shirt. Pt attempts sit to stand x3 in bathroom, pulling up from grab bars to don pants but unable to complete. Pt then attempts sit to stand from WC with FWW x3, but is unable to complete. Pt then dons pants while seated. Pt propels WC to laundry on ARU and puts clothes in washer. Pt then propels WC to // bars in therapy gym. Pt completes sit to stand x2, ModA and holds standing 60 seconds each. Pt then sit to stand ModA, and amb 4' in // bars. Pt amb another 6' x2 in // bars with Mihai. Pt practices sit to stand pushing up from arms of WC, completes x3 with Mihai. Pt then sit to stand w/ arms of WC, then amb 8' with FWW and WC follow. Pt remains in WC with OT as PT exits tx, left with all needs met. Assessment Current Status: Fair Progress Pt able to amb 4 bouts, farthest distance of 8'. Fatigues quickly and requires frequent rest breaks. Pt motivated to go home, states "as soon as I can put weight on my leg, I feel I would be ready to leave within a week." PT Short Term Goals Short Term Goals Time Frame: Apr 05, 2021 Roll Left & Right: 6 Sit to lyin Lying to sitting on side of be: 5 Sit to stand: 3 Chair/ytl-oy-pvncp transfer: 3 Toilet transfer: 3 Car transfer: 3 Walk 10 feet: 2 Walk 50 feet with two turns: 88 Walk 150 feet: 88 Walking 10ft on uneven surface: 88 1 step (curb): 88 4 steps: 88 12 steps: 88 Picking up objects: 2 Does pt use a wc or scooter: Yes Wheel 50ft w/2 turns: 5 Wheel 150 feet: 5 Type: Manual PT Utility System Repairer Goals Utility System Repairer Goals PT Utility System Repairer Goals Time Frame: May 03, 2021 Roll Left & Right (QC): 6 Sit to Lying (QC): 6 Lying-Sitting on Side/Bed(QC): 6 Sit to Stand (QC): 5 Chair/Zcc-bk-Btmpj Xfer(QC): 4 Toilet Transfer (QC): 4 Car Transfer (QC): 4 Does the Patient Walk: Yes Walk 10 feet (QC): 4 Walk 50ft with 2 Turns (QC): 3 Walk 150 ft (QC): 3 Walking 10ft on Uneven Surface: 3 1 Step (curb) (QC): 88 4 Steps (QC): 88 12 Steps (QC): 88 Picking up an Object (QC): 4 Does the Pt use WC or Scooter?: Yes Wheel 50 feet with 2 turns (QC: 6 Type: Manual Wheel 150 feet: 6 Type: Manual PT Plan Problem List Problem List: Activity Tolerance, Functional Strength, Safety Treatment/Plan Treatment Plan: Continue Plan of Care Treatment Plan: Bed Mobility, Education, Functional Activity Debo, Functional Strength, Group Therapy, Gait, Safety, Therapeutic Exercise, Transfers Treatment Duration: May 11, 2021 Frequency: At least 5 of 7 days/Wk (IRF) Estimated Hrs Per Day: 1.5 hours per day Patient and/or Family Agrees t: Yes Safety Risks/Education Patient Education: Gait Training, Transfer Techniques, Correct Positioning, W/C Management Teaching Recipient: Patient Teaching Methods: Demonstration, Discussion Response to Teaching: Verbalize Understanding, Return Demonstration Time/GCodes Time In: 900 Time Out: 1030 Total Billed Treatment Time: 90 Total Billed Treatment 1, FA x3, GT x3 MOIRA [place] AGILITY INSTRUCTOR Mar 20, 2021 10:29
--- NOTE | 2021-03-20 10:29 | Occupational Ther Daily Note ---
OT Current Status-Daily Note Subjective Pt up with PT, agreeable to OT/PT cotreat. Mental Status/Objective Patient Orientation: Person, Place, Time, Situation ADL-Treatment Therapy Code Descriptions/Definitions Functional [place] Measure: 0=Not Assessed/NA 4=Minimal Assistance 1=Total Assistance 5=Supervision or Setup 2=Maximal Assistance 6=Modified [place] 3=Moderate Assistance 7=Complete IndependenceSCALE: Activities may be completed with or without assistive devices. 1-Kaujkeknby-opbofze completes the activity by him/herself with no assistance from a helper. 5-Set-up or Clean-up Assistance-helper sets up or cleans up; patient completes activity. [place] assists only prior to or following the activity. 4-Supervision or Touching Assistance-helper provides verbal cues and/or touching/steadying and/or contact guard assistance as patient completes activity. Assistance may be provided throughout the activity or intermittently. 3-Partial/Moderate Assistance-helper does LESS THAN HALF the effort. [place] lifts, holds or supports trunk or limbs, but provides less than half the effort. 2-Substantial/Maximal Assistance-helper does MORE THAN HALF the effort. [place] lifts or holds trunk or limbs and provides more than half the effort. 1-Cgarczfts-tssjrk does ALL the effort. Patient does none of the effort to complete the activity. Or, the assistance of 2 or more helpers is required for the patient to complete the activity. If activity was not attempted, code reason: 7-Patient Refused. 9-Not Applicable-not attempted and the patient did not perform the activity before the current illness, exacerbation or injury. 10-Not Attempted due to Environmental Limitations-(lack of equipment, weather restraints, etc.). 88-Not Attempted due to Medical Conditions or Safety Concerns. Eating (QC): 6 (IND with breakfast per report.) Oral Hygiene (QC): 6 (IND per pt report.) Upper Body Dressing (QC): 5 (Set up assist) Lower Body Dressing (QC): 1 (Assist x2 in stand for pant hike, pt able to thread BLEs into pants/underwear with increased time.) On/Off Footwear: 2 (Assist Tedhose, pt able to complete L shoe, assist R shoe.) Other Treatment [id number]: OT/PT cotreat due to skill of 2 clinicians required that a animal rehabilitator could not perform in order to coordinate UE/LEs, decrease fall risk, and due to pt's limitations in transfers/mobility, impulsivity, and strength. OT focused on UE placement, UE placement, cues for sequencing and safety. PT focused on LE placement, gross overall movement, and transfers/mobility. Pt up in w/c getting dressed upon OT entry. Pt required increased time to thread LEs into pants. Pt attempted to stand at GBs in bathroom for pant hike, but unsuccessful, then attempted to stand at FWW but unable to achieve stand. Pt able to lift buttocks off of w/c using arms, x2 assist to manage pants up. Pt performed w/c mobility t o laundry area, started laundry with SBA seated in w/c. Pt then went to therapy gym, stood in parallel bars x1, then performed functional mobility in parallel bars x3 trials, seated rest break between. Pt then completed functional sit to stand transfers, with focus on pushing up from the w/c to achieve stand. Pt performed functional mobility using FWW x1 trial ~8'. End of Cotreat. [id number]: OT tx. Pt completed arm bike x15 mins, 25-30 Watt resistance without rest break, then performed w/c mobility back to his room. Post tx, pt up in w/c, call light in reach and all needs met. Education OT Patient Education: Correct positioning, Energy conservation, Modified ADL techniques, Progress toward Goal/Update tx plan, Purpose of tx/functional activities Teaching Recipient: Patient Teaching Methods: Discussion Response to Teaching: Verbalize Understanding OT Short Term Goals Short Term Goals Time Frame: Mar 29, 2021 Toileting hygiene: 3 Shower/bathe self: 3 Lower body dressin Putting on/taking off footwear: 3 OT Yarn Rewinder Goals Mcc Goals Time Frame: Apr 13, 2021 Eating (QC): 6 Oral Hygiene (QC): 6 Toileting Hygiene (QC): 4 Shower/Bathe Self (QC): 4 Upper Body Dressing (QC): 5 Lower Body Dressing (QC): 4 On/Off Footwear (QC): 5 Additional Goals: 1-Demonstrate ADL Tasks, 2-Verbalize Understanding, 3-ImproveStrength/Debo 1=Demonstrate adherence to instructed precautions during ADL tasks. 2=Patient will verbalize/demonstrate understanding of assistive devices/modifications for ADL. 3=Patient will improve strength/tolerance for activity to enable patient to perform ADL's. OT Education/Plan Problem List/Assessment Assessment: Decreased Activ Tolerance, Decreased UE Strength, Impaired Funct Balance, Impaired I ADL's, Impaired Self-Care Skills Discharge Recommendations Plan/Recommendations: Continue POC Treatment Plan/Plan of Care Patient would benefit from OT for education, treatment and training to promote independence in ADL's, mobility, safety and/or upper extremity function for ADL's. Plan of Care: ADL Retraining, Functional Mobility, Group Exercise/Act as Ind, UE Funct Exercise/Act Treatment Duration: Apr 13, 2021 Frequency: At least 5 of 7 days/Wk (IRF) Estimated Hrs Per Day: 1.5 hours per day Agreement: Yes Rehab Potential: Fair Time/GCodes Start Time: 09:15 Stop Time: 10:45 Total Time Billed (hr/min): 90 Billed Treatment Time Cotreat [id number], OT tx [id number] 1, ADL (15'), FA 4 (60'), EX (15') SOURAV TALBOT OT Mar 20, 2021 10:29
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
[2021-03-20 20:00] VITALS: BP 117/59
[2021-03-20] MEDS: TOLTERODINE LA 4 MG (DETROL) CAP PO SCH (20:44)
[2021-03-20] MEDS: BACLOFEN 10 MG (LIORESAL) TAB PO PRN (20:45)
[2021-03-21] MEDS: HYDROcodone/APAP 7.5 MG/325 MG (LORTAB, LORCET PLUS) TABLET PO PRN ×2 (06:52→16:37)
--- NOTE | 2021-03-21 07:01 | PM&R Progress Note ---
Subjective HPI/CC On Admission Date Seen by Provider: Mar 21, 2021 Time Seen by Provider: 11:45 Subjective/Events-last exam 03/21/21: Pt doing really well Has an appointment next week so will DC him so he can go to his ortho appointment Able to use a wheel chair and slide board since he is used to that since 1965 from a cervical spine injury 03/20/2021: Pt doing really well No major issues Checked meds and labs Detrol LA really helping him Pain is controlled Participating in therapy 03/19/2021: Patient doing well Urology will see him on Friday Detrol LA ordered Bowels are moving 03/18/2021: Patient doing well Incontinence noted with bladder spasms so open to see urology Bowels are moving Incision looks good Baclofen is helped 03/17/2021: Patient doing very well Bowels are moving well Using slide board very well Lortab helps the pain Started baclofen to take at night for spasms 03/16/2021: Patient doing really well Took a shower today Refused laxatives due to loose stools Pain pills are managing the pain Participating in therapy Hemoglobin 7.8 will check iron level Review of Systems General: Fatigue, Malaise Musculoskeletal: leg pain Neurological: Weakness Objective Exam Vital Signs Vital Signs Date Time Temp Pulse Resp B/P (MAP) Pulse Ox O2 Delivery O2 Flow Rate FiO2 03/21/21 20:14 Room Air 03/21/21 20:02 36.8 78 22 129/62 (84) 98 Capillary Refill : General Appearance: No Apparent Distress, WD/WN, Chronically ill HEENT: PERRL/EOMI, Normal ENT Inspection, Pharynx Normal Neck: Full Range of Motion, Normal Inspection, Non Tender, Supple, Carotid Bruit Respiratory: Chest Non Tender, Lungs Clear, Normal Breath Sounds, No Accessory Muscle Use, No Respiratory Distress Cardiovascular: Regular Rate, Rhythm, No Edema, No Gallop, No JVD, No Murmur, Normal Peripheral Pulses Gastrointestinal: Normal Bowel Sounds, No Organomegaly, No Pulsatile Mass, Non Tender, Soft Back: Normal Inspection, No CVA Tenderness, No Vertebral Tenderness Extremity: Normal Capillary Refill, Normal Inspection, Normal Range of Motion, Non Tender, No Calf Tenderness, No Pedal Edema Neurologic/Psychiatric: Alert, Oriented x3, Normal Mood/Affect, Abnormal Gait, Motor Weakness (Chronic left-sided weakness and minimal weightbearing on right) Skin: Normal Color, Warm/Dry Lymphatic: No Adenopathy Results/Procedures Lab Patient resulted labs reviewed. FIM Transfers Therapy Code Descriptions/Definitions Functional [place] Measure: 0=Not Assessed/NA 4=Minimal Assistance 1=Total Assistance 5=Supervision or Setup 2=Maximal Assistance 6=Modified [place] 3=Moderate Assistance 7=Complete IndependenceSCALE: Activities may be completed with or without assistive devices. 8-Jjucllpxzr-omhkndc completes the activity by him/herself with no assistance from a helper. 5-Set-up or Clean-up Assistance-helper sets up or cleans up; patient completes activity. [place] assists only prior to or following the activity. 4-Supervision or Touching Assistance-helper provides verbal cues and/or touching/steadying and/or contact guard assistance as patient completes activity. Assistance may be provided throughout the activity or intermittently. 3-Partial/Moderate Assistance-helper does LESS THAN HALF the effort. [place] lifts, holds or supports trunk or limbs, but provides less than half the effort. 2-Substantial/Maximal Assistance-helper does MORE THAN HALF the effort. [place] lifts or holds trunk or limbs and provides more than half the effort. 5-Lukeigzbr-uplfkn does ALL the effort. Patient does none of the effort to complete the activity. Or, the assistance of 2 or more helpers is required for the patient to complete the activity. If activity was not attempted, code reason: 7-Patient Refused. 9-Not Applicable-not attempted and the patient did not perform the activity before the current illness, exacerbation or injury. 10-Not Attempted due to Environmental Limitations-(lack of equipment, weather restraints, etc.). 88-Not Attempted due to Medical Conditions or Safety Concerns. Roll Left to Right (QC): 5 Sit to Lying (QC): 5 Sit to Stand (QC): 3 Chair/Dgy-dw-Hbknd Xfer(QC): 3 Car Transfer (QC): 88 Gait Training Does the Patient Walk?: Yes Distance: 8', 6' x2, 4' Walk 10 feet (QC): 88 Walk 50 ft with 2 Turns(QC): 88 Walk 150 ft (QC): 88 Walking 10ft/uneven surface-QC: 88 Gait Assistive Device: FWW Wheelchair Training Does the Pt Use a Wheelchair?: Yes Distance: 10 Wheel 50 ft with 2 turns (QC): 6 Wheel 150 ft (QC): 6 Type of Wheelchair: Manual Stair Training 1 Step (curb) (QC): 88 4 Steps (QC): 88 12 Steps (QC): 88 Balance Picking up an Object (QC): 88 ADL-Treatment Eating (QC): 6 (IND with breakfast per report.) Oral Hygiene (QC): 6 (IND per pt report.) Shower/Bathe Self (QC): 4 (SBA, pt able to wash/dry all parts seated on SC) Upper Body Dressing (QC): 5 (Set up assist) Lower Body Dressing (QC): 1 (Assist x2 in stand for pant hike, pt able to thread BLEs into pants/underwear with increased time.) On/Off Footwear (QC): 2 (Assist Tedhose, pt able to complete L shoe, assist R shoe.) Toileting Hygiene (QC): 1 (Assist x2 in stand for pant hike. ) Toilet Transfer (QC): 3 (Mod A via slide board.) Assessment/Plan Assessment and Plan Assess & Plan/Chief Complaint Assessment: Status post right hip fracture repair Oral tobacco use Alcohol use Hypertension Neurogenic bladder Cervical spine injury 1996 Anemia Neurogenic bladder dose self caths at home Plan: DVT prophylaxis Supportive care Bowel regimen 03/16/2021: Check iron level Participation in therapy Pain control 03/17/2021: Supportive care Aggressive rehab 03/18/2021: Urology follow-up Baclofen at night 03/19/2021: None appreciate urology Detrol LA started 03/20/2021: Doing well with therapy Monitor closely 03/21/21: Pain control Detrol LA Baclofen DC next week (1) Intertrochanteric fracture Status: Acute CHENG FARIAS DO Mar 21, 2021 07:01
[2021-03-21] MEDS: lisINopril 20 MG (PRINIVIL) TABLET PO SCH (07:56)
[2021-03-21] MEDS: ETODOLAC 300 MG (LODINE) CAP PO SCH ×2 (07:56→17:22)
[2021-03-21] MEDS: DULoxetine 30 MG (CYMBALTA) CAP PO SCH (07:56)
[2021-03-21] MEDS: ACETAMINOPHEN 500 MG TAB (TYLENOL) PO SCH ×2 (07:57→20:12)
[2021-03-21] MEDS: ENOXAPARIN 40 MG/0.4 ML (LOVENOX) SYR SC SCH (07:57)
[2021-03-21 08:00] VITALS: BP 121/57
[2021-03-21] MEDS: FERROUS SULF 325 MG (IRON) TAB PO SCH (08:00)
--- NOTE | 2021-03-21 10:44 | Occupational Ther Daily Note ---
OT Current Status-Daily Note Subjective Pt up in w/c, agreeable to OT Tx. Mental Status/Objective Patient Orientation: Person, Place, Situation ADL-Treatment Therapy Code Descriptions/Definitions Functional [place] Measure: 0=Not Assessed/NA 4=Minimal Assistance 1=Total Assistance 5=Supervision or Setup 2=Maximal Assistance 6=Modified [place] 3=Moderate Assistance 7=Complete IndependenceSCALE: Activities may be completed with or without assistive devices. 7-Gwpiqelghm-kpoxgzd completes the activity by him/herself with no assistance from a helper. 5-Set-up or Clean-up Assistance-helper sets up or cleans up; patient completes activity. [place] assists only prior to or following the activity. 4-Supervision or Touching Assistance-helper provides verbal cues and/or touching/steadying and/or contact guard assistance as patient completes activity. Assistance may be provided throughout the activity or intermittently. 3-Partial/Moderate Assistance-helper does LESS THAN HALF the effort. [place] lifts, holds or supports trunk or limbs, but provides less than half the effort. 2-Substantial/Maximal Assistance-helper does MORE THAN HALF the effort. [place] lifts or holds trunk or limbs and provides more than half the effort. 4-Wnydwugty-lqsktv does ALL the effort. Patient does none of the effort to complete the activity. Or, the assistance of 2 or more helpers is required for the patient to complete the activity. If activity was not attempted, code reason: 7-Patient Refused. 9-Not Applicable-not attempted and the patient did not perform the activity before the current illness, exacerbation or injury. 10-Not Attempted due to Environmental Limitations-(lack of equipment, weather restraints, etc.). 88-Not Attempted due to Medical Conditions or Safety Concerns. Eating (QC): 6 (Per pt report.) Oral Hygiene (QC): 6 (Per pt report IND seated) Shower/Bathe Self (QC): 5 (set up seated at SC) Upper Body Dressing (QC): 5 (set up) Lower Body Dressing (QC): 1 (assist x2 for pant hike) On/Off Footwear: 3 (Pt donned L tedhose, bilateral shoes. Min A with rotating R tedhose as he donned.) Other Treatment OT/PT cotreat due to skill of 2 clinicians required that a rehab technician could not perform in order to coordinate UE/LEs, decrease fall risk, and due to pt's limitations in transfers/mobility, impulsivity, and strength. OT focused on UE placement, UE placement, cues for sequencing and safety. PT focused on LE placement, gross overall movement, and transfers/mobility. Pt transferred from / to LA sliding between surfaces, declines using SB. Pt completed shower seated on LA after set up assistance, then transferred back to / to get dressed. Pt required assist x2 for pant hike, he was able to thread pants/underwear onto BLEs. After getting dressed, pt propelled w/c to therapy gym, standing in parallel bars to complete bimanual task of removing beads from theraputty, in order to increase standing tolerance and dynamic balance. Pt leaned heavily onto table while completing task. Pt ambulated in bars x2 trials, seated rest breaks between. Pt states he does not like the SB in his room, pt completed SB transfers with 2 different slide boards, states he likes the wooden one better, this SB left in his room and other one removed. Pt stood in bars, completing peg task, using LUE to turn all pegs over, while supporting himself with RUE. Pt took seated rest break, then attempted with RUE, only able to complete half of task. Pt propelled w/c back to his room. Post tx, pt up in chair, call light in reach and all needs met. Please refer to PT note for mobility/transfer scores. Education OT Patient Education: Correct positioning, Energy conservation, Exercise program, Modified ADL techniques, Progress toward Goal/Update tx plan, Purpose of tx/functional activities, Rehab process, Safety issues, Transfer techniques Teaching Recipient: Patient Teaching Methods: Discussion Response to Teaching: Verbalize Understanding OT Short Term Goals Short Term Goals Time Frame: Mar 29, 2021 Toileting hygiene: 3 Shower/bathe self: 3 Lower body dressin Putting on/taking off footwear: 3 OT Title Insurance Examiner Goals Fpc Goals Time Frame: Apr 13, 2021 Eating (QC): 6 Oral Hygiene (QC): 6 Toileting Hygiene (QC): 4 Shower/Bathe Self (QC): 4 Upper Body Dressing (QC): 5 Lower Body Dressing (QC): 4 On/Off Footwear (QC): 5 Additional Goals: 1-Demonstrate ADL Tasks, 2-Verbalize Understanding, 3- ImproveStrength/Debo 1=Demonstrate adherence to instructed precautions during ADL tasks. 2=Patient will verbalize/demonstrate understanding of assistive dev ices/modifications for ADL. 3=Patient will improve strength/tolerance for activity to enable patient to perform ADL's. OT Education/Plan Problem List/Assessment Assessment: Decreased Activ Tolerance, Decreased Safety Aware, Decreased UE Strength, Impaired Funct Balance, Impaired I ADL's, Impaired Self-Care Skills Discharge Recommendations Plan/Recommendations: Continue POC Treatment Plan/Plan of Care Patient would benefit from OT for education, treatment and training to promote independence in ADL's, mobility, safety and/or upper extremity function for ADL's. Plan of Care: ADL Retraining, Functional Mobility, Group Exercise/Act as Ind, UE Funct Exercise/Act Treatment Duration: Apr 13, 2021 Frequency: At least 5 of 7 days/Wk (IRF) Estimated Hrs Per Day: 1.5 hours per day Agreement: Yes Rehab Potential: Fair Time/GCodes Start Time: 09:15 Stop Time: 10:45 Total Time Billed (hr/min): 90 Billed Treatment Time cotreat x90' 1, ADL 3 (45'), FA 3 (45') SOURAV TALBOT OT Mar 21, 2021 10:44
--- NOTE | 2021-03-21 10:48 | Physical Therapy Daily Note ---
PT Daily Note-Current Subjective Pt in WC upon arrival and agrees to co-treat. Pt states discomfort in B hip, states it's "because it is going to rain". Use of 2 skilled clinicians due to pt poor mobility, transfers, impulsiveness, poor balance, safety, and decrease risk of falls. Mental Status Patient Orientation: Person, Place, Time Transfers SCALE: Activities may be completed with or without assistive devices. 1-Lynlrsnkhq-uylkkaw completes the activity by him/herself with no assistance from a helper. 5-Set-up or Clean-up Assistance-helper sets up or cleans up; patient completes activity. [place] assists only prior to or following the activity. 4-Supervision or Touching Assistance-helper provides verbal cues and/or touching/steadying and/or contact guard assistance as patient completes activity. Assistance may be provided throughout the activity or intermittently. 3-Partial/Moderate Assistance-helper does LESS THAN HALF the effort. [place] lifts, holds or supports trunk or limbs, but provides less than half the effort. 2-Substantial/Maximal Assistance-helper does MORE THAN HALF the effort. [place] lifts or holds trunk or limbs and provides more than half the effort. 0-Apwdntagd-rtzkgt does ALL the effort. Patient does none of the effort to complete the activity. Or, the assistance of 2 or more helpers is required for the patient to complete the activity. If activity was not attempted, code reason: 7-Patient Refused. 9-Not Applicable-not attempted and the patient did not perform the activity before the current illness, exacerbation or injury. 10-Not Attempted due to Environmental Limitations-(lack of equipment, weather restraints, etc.). 88-Not Attempted due to Medical Conditions or Safety Concerns. Sit to Stand (QC): 3 Chair/Egt-jw-Sxyao Xfer(QC): 3 Toilet Transfer (QC): 3 Pt sit to stands ModA, in // bars pt pulls up and leans on bar with hip to adjust LE for upright stance. Weight Bearing Right Lower Extremity: Right Touch Toe Bearing Left Lower Extremity: Left Full Weight Bearing Left and Right LE's demonstrates strength deficit from previous C5-T1 SCI Gait Training Does the Patient Walk?: Yes Distance: 6' x2 Gait Assistive Device: Parallel Bars Pt much more unsteady today, pt states "It's because it's going to rain and my hips are tight and sore." Pt amb 6' in // bars x2, Mihai for steadiness. Treatments OT focused on bathing, dressing, and UE strength/coordination. PT focused on transfers, gait, balance, and LE strength/coordination. Pt in WC, transfers to shower bench to complete shower. Pt then transfers back to WC, dons clothing. Pt attempt to sit to stand x2 with FWW and Mihai x2, but unable to complete. Pt attempt sit to stand again with FWW, able to stand as OT dons pt pants. Pt then propels WC to // bars in therapy gym. pt sit to stand Mihai x2 and completes static standing balance activity w/ B UE, pt required 2 rest breaks during activity. Pt then request to use different slide board, practices transfers with plastic and wooden slide boards to mat, pt request to use wooden board instead. This board was left in pt room. Pt then enters // bars and completes amb 6' x2 Mihai. Pt performs standing balance activity while supported w/ 1 UE, using the other. Pt propels WC back to room, remains in WC with all needs met, call light in hand. Assessment Current Status: Fair Progress Pt very impulsive, requires VC to keep focused on tasks. Pt more weak and unsteady today PT Short Term Goals Short Term Goals Time Frame: Apr 05, 2021 Roll Left & Right: 6 Sit to lyin Lying to sitting on side of be: 5 Sit to stand: 3 Chair/mxr-tw-aaqew transfer: 3 Toilet transfer: 3 Car transfer: 3 Walk 10 feet: 2 Walk 50 feet with two turns: 88 Walk 150 feet: 88 Walking 10ft on uneven surface: 88 1 step (curb): 88 4 steps: 88 12 steps: 88 Picking up objects: 2 Does pt use a wc or scooter: Yes Wheel 50ft w/2 turns: 5 Wheel 150 feet: 5 Type: Manual PT Halfway Goals Sales Expert Home Theater Goals PT Sales Expert Home Theater Goals Time Frame: May 03, 2021 Roll Left & Right (QC): 6 Sit to Lying (QC): 6 Lying-Sitting on Side/Bed(QC): 6 Sit to Stand (QC): 5 Chair/Sgu-rl-Inxtr Xfer(QC): 4 Toilet Transfer (QC): 4 Car Transfer (QC): 4 Does the Patient Walk: Yes Walk 10 feet (QC): 4 Walk 50ft with 2 Turns (QC): 3 Walk 150 ft (QC): 3 Walking 10ft on Uneven Surface: 3 1 Step (curb) (QC): 88 4 Steps (QC): 88 12 Steps (QC): 88 Picking up an Object (QC): 4 Does the Pt use WC or Scooter?: Yes Wheel 50 feet with 2 turns (QC: 6 Type: Manual Wheel 150 feet: 6 Type: Manual PT Plan Problem List Problem List: Activity Tolerance, Functional Strength, Safety Treatment/Plan Treatment Plan: Continue Plan of Care Treatment Plan: Bed Mobility, Education, Functional Activity Debo, Functional Strength, Group Therapy, Gait, Safety, Therapeutic Exercise, Transfers Treatment Duration: May 11, 2021 Frequency: At least 5 of 7 days/Wk (IRF) Estimated Hrs Per Day: 1.5 hours per day Patient and/or Family Agrees t: Yes Time/GCodes Time In: 915 Time Out: 1045 Total Billed Treatment Time: 90 Total Billed Treatment 1, FA x3, NM x2, GT MOIRA WAKEFIELD RIGGER THIRD Mar 21, 2021 10:48
[2021-03-21 20:02] VITALS: BP 129/62
[2021-03-21] MEDS: TOLTERODINE LA 4 MG (DETROL) CAP PO SCH (20:11)
[2021-03-21] MEDS: BACLOFEN 10 MG (LIORESAL) TAB PO PRN (20:12)
[2021-03-22] MEDS: HYDROcodone/APAP 7.5 MG/325 MG (LORTAB, LORCET PLUS) TABLET PO PRN ×3 (06:36→21:12)
[2021-03-22] MEDS: ETODOLAC 300 MG (LODINE) CAP PO SCH ×2 (07:16→17:43)
[2021-03-22] MEDS: lisINopril 20 MG (PRINIVIL) TABLET PO SCH (07:16)
[2021-03-22] MEDS: DULoxetine 30 MG (CYMBALTA) CAP PO SCH (07:16)
[2021-03-22] MEDS: ACETAMINOPHEN 500 MG TAB (TYLENOL) PO SCH ×2 (07:17→21:13)
[2021-03-22] MEDS: ENOXAPARIN 40 MG/0.4 ML (LOVENOX) SYR SC SCH (07:19)
[2021-03-22 07:35] VITALS: BP 120/58
--- NOTE | 2021-03-22 08:40 | Progress Note - Urology ---
Progress Note-Urology Progress Notes/Assess & Plan Progress/Assessment & Plan CONTINUES WELL ON DETROL LA. NO AE Final Diagnosis WET OAB RIANA GUILLORY MD Mar 22, 2021 08:40
--- NOTE | 2021-03-22 09:57 | Physical Therapy Daily Note ---
PT Daily Note-Current Subjective Pt in WC upon arrival and agrees to tx. Pt has no c/o pain, states he feels "much better" than yesterday because "the rain is gone" Mental Status Patient Orientation: Person, Place, Time, Situation Transfers SCALE: Activities may be completed with or without assistive devices. 2-Untislipyh-wctkbvf completes the activity by him/herself with no assistance from a helper. 5-Set-up or Clean-up Assistance-helper sets up or cleans up; patient completes activity. [place] assists only prior to or following the activity. 4-Supervision or Touching Assistance-helper provides verbal cues and/or touching/steadying and/or contact guard assistance as patient completes activity. Assistance may be provided throughout the activity or intermittently. 3-Partial/Moderate Assistance-helper does LESS THAN HALF the effort. [place] lifts, holds or supports trunk or limbs, but provides less than half the effort. 2-Substantial/Maximal Assistance-helper does MORE THAN HALF the effort. [place] lifts or holds trunk or limbs and provides more than half the effort. 4-Wnpszldco-kenzwe does ALL the effort. Patient does none of the effort to complete the activity. Or, the assistance of 2 or more helpers is required for the patient to complete the activity. If activity was not attempted, code reason: 7-Patient Refused. 9-Not Applicable-not attempted and the patient did not perform the activity before the current illness, exacerbation or injury. 10-Not Attempted due to Environmental Limitations-(lack of equipment, weather restraints, etc.). 88-Not Attempted due to Medical Conditions or Safety Concerns. Sit to Stand (QC): 3 Chair/Nsj-mn-Xkiqx Xfer(QC): 4 Pt transfers using SB to/from bed, able to place SB and transfer CGA. Pt sit to corporate meeting planner // bars x5, leans back side on bar while attempting to come upright. Pt attempts to have erect posture w/o leaning on bar, requiring Mihai. Pt sit <> in WC with use of FWW, attempts x3 but unable to complete. Pt then attempts 4th time, Mihai x2 to steady FWW and stabilize pt. Weight Bearing Right Lower Extremity: Right Touch Toe Bearing Left Lower Extremity: Left Full Weight Bearing Left and Right LE's demonstrates strength deficit from previous C5-T1 SCI Gait Training Does the Patient Walk?: Yes Distance: 6' x3 Gait Assistive Device: Parallel Bars Pt amb 6' x2 in // bars while maintaining TTWB on R LE. Pt attempts amb with FWW today, amb 6' and WC follow Exercises Seated Therapy Exercises: Sit to stand Treatments OT focused on dressing, UE strengthening, and UE positioning. PT focused on transfers, gait, and balance. Pt in WC, begins to don pants. SB transfers to bed CGA and finishes getting dressed. Pt then SB back to WC, propels WC to // bars in therapy gym. Pt sit to stand and amb 6' x2 Mihai. Pt then completes dynamic standing balance activity, supported with one UE at a time, reaching across midline with other and reaching in all planes. Pt completes with B UE, 8 times w/ L UE and only 5 with R UE. Pt then attempts to amb w/ FWW. Pt attempts sit <> stand x3 but unable to advance B UE from WC to FWW. With rest, pt able to stand upright w/ Mihai x2 and amb 6'. Pt then propels WC back to room, remains in WC with all needs met and call light in hand. Assessment Current Status: Fair Progress Pt very impulsive, requires VC to wait for A for transfers. Overall pt increasing strength, endurance, and mobility PT Short Term Goals Short Term Goals Time Frame: Apr 05, 2021 Roll Left & Right: 6 Sit to lyin Lying to sitting on side of be: 5 Sit to stand: 3 Chair/mhk-qh-nuovg transfer: 3 Toilet transfer: 3 Car transfer: 3 Walk 10 feet: 2 Walk 50 feet with two turns: 88 Walk 150 feet: 88 Walking 10ft on uneven surface: 88 1 step (curb): 88 4 steps: 88 12 steps: 88 Picking up objects: 2 Does pt use a wc or scooter: Yes Wheel 50ft w/2 turns: 5 Wheel 150 feet: 5 Type: Manual PT Exterminator Termite Goals Fpc Goals PT Exterminator Termite Goals Time Frame: May 03, 2021 Roll Left & Right (QC): 6 Sit to Lying (QC): 6 Lying-Sitting on Side/Bed(QC): 6 Sit to Stand (QC): 5 Chair/Ucr-xl-Qmrjb Xfer(QC): 4 Toilet Transfer (QC): 4 Car Transfer (QC): 4 Does the Patient Walk: Yes Walk 10 feet (QC): 4 Walk 50ft with 2 Turns (QC): 3 Walk 150 ft (QC): 3 Walking 10ft on Uneven Surface: 3 1 Step (curb) (QC): 88 4 Steps (QC): 88 12 Steps (QC): 88 Picking up an Object (QC): 4 Does the Pt use WC or Scooter?: Yes Wheel 50 feet with 2 turns (QC: 6 Type: Manual Wheel 150 feet: 6 Type: Manual PT Plan Problem List Problem List: Activity Tolerance, Functional Strength, Safety, Balance, Gait Treatment/Plan Treatment Plan: Continue Plan of Care Treatment Plan: Bed Mobility, Education, Functional Activity Debo, Functional Strength, Group Therapy, Gait, Safety, Therapeutic Exercise, Transfers Treatment Duration: May 11, 2021 Frequency: At least 5 of 7 days/Wk (IRF) Estimated Hrs Per Day: 1.5 hours per day Patient and/or Family Agrees t: Yes Safety Risks/Education Patient Education: Gait Training, Transfer Techniques, Correct Positioning, W/C Management Teaching Recipient: Patient Teaching Methods: Discussion Response to Teaching: Verbalize Understanding, Reinforcement Needed Time/GCodes Time In: 900 Time Out: 1000 Total Billed Treatment Time: 60 Total Billed Treatment 1, GT x2, NM, FA MOIRA [place] WAIST FITTER Mar 22, 2021 09:57
--- NOTE | 2021-03-22 10:01 | Occupational Ther Daily Note ---
OT Current Status-Daily Note Subjective Pt up in w/c, agreeable to therapy tx. Pt states he doesn't feel ready to go home next week, OT provided education on his progress and his current level of function utilizing SB vs FWW. Mental Status/Objective Patient Orientation: Person, Place, Time, Situation ADL-Treatment Therapy Code Descriptions/Definitions Functional [place] Measure: 0=Not Assessed/NA 4=Minimal Assistance 1=Total Assistance 5=Supervision or Setup 2=Maximal Assistance 6=Modified [place] 3=Moderate Assistance 7=Complete IndependenceSCALE: Activities may be completed with or without assistive devices. 5-Lvdajofpdg-mtsbhoc completes the activity by him/herself with no assistance from a helper. 5-Set-up or Clean-up Assistance-helper sets up or cleans up; patient completes activity. [place] assists only prior to or following the activity. 4-Supervision or Touching Assistance-helper provides verbal cues and/or touching/steadying and/or contact guard assistance as patient completes activity. Assistance may be provided throughout the activity or intermittently. 3-Partial/Moderate Assistance-helper does LESS THAN HALF the effort. [place] lifts, holds or supports trunk or limbs, but provides less than half the effort. 2-Substantial/Maximal Assistance-helper does MORE THAN HALF the effort. [place] lifts or holds trunk or limbs and provides more than half the effort. 1-Iwmkqbtlj-yqllxo does ALL the effort. Patient does none of the effort to c omplete the activity. Or, the assistance of 2 or more helpers is required for the patient to complete the activity. If activity was not attempted, code reason: 7-Patient Refused. 9-Not Applicable-not attempted and the patient did not perform the activity before the current illness, exacerbation or injury. 10-Not Attempted due to Environmental Limitations-(lack of equipment, weather restraints, etc.). 88-Not Attempted due to Medical Conditions or Safety Concerns. Upper Body Dressing (QC): 5 (set up) Lower Body Dressing (QC): 4 (Pt able to thread LEs into pants at w/c, SB to EOB where he was able to lean/roll to perform pant hike. CGA during SB transfer) On/Off Footwear: 6 (IND with TEDhose and bilateral shoes.) Other Treatment OT/PT cotreat due to skill of 2 clinicians required that a rehabilitation nurse could not perform in order to coordinate UE/LEs, decrease fall risk, and due to pt's limitations in transfers/mobility, impulsivity, and strength. OT focused on UE placement, UE placement, cues for sequencing and safety. PT focused on LE placement, gross overall movement, and transfers/mobility. Pt up in w/c, threaded pants/underwear onto LEs, then donned shoes. Pt educated on being more independent at slide board level, vs requiring assistance x2 in stand to perform pant hike. Pt performed SB transfer to EOB, CGA. Pt able to lean/roll side to side to perform pant hike himself, then transferred back to w/c without SB, CGA. Pt changed shirt after set up. Pt propelled w/c to therapy gym. Tx focused on improving functional mobility, improving dynamic standing balance, and reaching tasks. Pt performed functional mobility in bars x2, then stood in the bars x3 for reaching across midline. Pt more stable while holding himself up with his R hand and reaching with his L vs performing the reaching with RUE (2 trials required on RUE with seated rest break between). Pt then performed functional mobility x1 trial using FWW, required multiple attempts to obtain stand, as pt has to lean forward onto arms, while moving hips from R to L side while he twists and pushes through his arms to stand. Pt states he had to "roll" his hips. Pt propelled back to his room, up in w/c post tx, call light in reach and all needs met. please refer to PT note for assistance levels required with mobility/transfers/balance. Education OT Patient Education: Correct positioning, Energy conservation, Modified ADL techniques, Progress toward Goal/Update tx plan, Purpose of tx/functional activities Teaching Recipient: Patient Teaching Methods: Discussion Response to Teaching: Verbalize Understanding OT Short Term Goals Short Term Goals Time Frame: Mar 29, 2021 Toileting hygiene: 3 Shower/bathe self: 3 Lower body dressin Putting on/taking off footwear: 3 OT Mcc Goals Mcc Goals Time Frame: Apr 13, 2021 Eating (QC): 6 Oral Hygiene (QC): 6 Toileting Hygiene (QC): 4 Shower/Bathe Self (QC): 4 Upper Body Dressing (QC): 5 Lower Body Dressing (QC): 4 On/Off Footwear (QC): 5 Additional Goals: 1-Demonstrate ADL Tasks, 2-Verbalize Understanding, 3- ImproveStrength/Debo 1=Demonstrate adherence to instructed precautions during ADL tasks. 2=Patient will verbalize/demonstrate understanding of assistive devices/modifications for ADL. 3=Patient will improve strength/tolerance for activity to enable patient to perform ADL's. OT Education/Plan Problem List/Assessment Assessment: Decreased Activ Tolerance, Decreased Safety Aware, Decreased UE Strength, Impaired Funct Balance, Impaired I ADL's, Impaired Self-Care Skills Discharge Recommendations Plan/Recommendations: Continue POC Treatment Plan/Plan of Care Patient would benefit from OT for education, treatment and training to promote independence in ADL's, mobility, safety and/or upper extremity function for ADL's. Plan of Care: ADL Retraining, Functional Mobility, Group Exercise/Act as Ind, UE Funct Exercise/Act Treatment Duration: Apr 13, 2021 Frequency: At least 5 of 7 days/Wk (IRF) Estimated Hrs Per Day: 1.5 hours per day Agreement: Yes Rehab Potential: Fair Time/GCodes Start Time: 09:00 Stop Time: 10:00 Total Time Billed (hr/min): 60 Billed Treatment Time cotreat x60' 1, ADL (15'), FA 3 (45') SOURAV TALBOT OT Mar 22, 2021 10:01
--- NOTE | 2021-03-22 11:18 | PM&R Progress Note ---
Subjective HPI/CC On Admission Date Seen by Provider: Mar 22, 2021 Time Seen by Provider: 11:15 Subjective/Events-last exam 03/22/2021: Patient doing well Kaitlyn are a bit irritated Bowels are moving well Appointment Friday with orthopedics then will return for a few more days of therapy 03/21/21: Pt doing really well Has an appointment next week so will DC him so he can go to his ortho appointment Able to use a wheel chair and slide board since he is used to that since 1965 from a cervical spine injury 03/20/2021: Pt doing really well No major issues Checked meds and labs Detrol LA really helping him Pain is controlled Participating in therapy 03/19/2021: Patient doing well Urology will see him on Friday Detrol LA ordered Bowels are moving 03/18/2021: Patient doing well Incontinence noted with bladder spasms so open to see urology Bowels are moving Incision looks good Baclofen is helped 03/17/2021: Patient doing very well Bowels are moving well Using slide board very well Lortab helps the pain Started baclofen to take at night for spasms 03/16/2021: Patient doing really well Took a shower today Refused laxatives due to loose stools Pain pills are managing the pain Participating in therapy Hemoglobin 7.8 will check iron level Review of Systems General: Fatigue, Malaise Musculoskeletal: leg pain Objective Exam Vital Signs Vital Signs Date Time Temp Pulse Resp B/P (MAP) Pulse Ox O2 Delivery O2 Flow Rate FiO2 03/22/21 20:10 96 Room Air 03/22/21 20:00 36.4 68 20 125/60 (81) Capillary Refill : General Appearance: No Apparent Distress, WD/WN, Chronically ill HEENT: PERRL/EOMI, Normal ENT Inspection, Pharynx Normal Neck: Full Range of Motion, Normal Inspection, Non Tender, Supple, Carotid Bruit Respiratory: Chest Non Tender, Lungs Clear, Normal Breath Sounds, No Accessory Muscle Use, No Respiratory Distress Cardiovascular: Regular Rate, Rhythm, No Edema, No Gallop, No JVD, No Murmur, Normal Peripheral Pulses Gastrointestinal: Normal Bowel Sounds, No Organomegaly, No Pulsatile Mass, Non Tender, Soft Back: Normal Inspection, No CVA Tenderness, No Vertebral Tenderness Extremity: Normal Capillary Refill, Normal Inspection, Normal Range of Motion, Non Tender, No Calf Tenderness, No Pedal Edema Neurologic/Psychiatric: Alert, Oriented x3, Normal Mood/Affect, Abnormal Gait, Motor Weakness (Chronic left-sided weakness and minimal weightbearing on right) Skin: Normal Color, Warm/Dry Lymphatic: No Adenopathy Results/Procedures Lab Patient resulted labs reviewed. FIM Transfers Therapy Code Descriptions/Definitions Functional [place] Measure: 0=Not Assessed/NA 4=Minimal Assistance 1=Total Assistance 5=Supervision or Setup 2=Maximal Assistance 6=Modified [place] 3=Moderate Assistance 7=Complete IndependenceSCALE: Activities may be completed with or without assistive devices. 5-Uyhazicuqj-qvhtvok completes the activity by him/herself with no assistance from a helper. 5-Set-up or Clean-up Assistance-helper sets up or cleans up; patient completes activity. [place] assists only prior to or following the activity. 4-Supervision or Touching Assistance-helper provides verbal cues and/or touching/steadying and/or contact guard assistance as patient completes act ivity. Assistance may be provided throughout the activity or intermittently. 3-Partial/Moderate Assistance-helper does LESS THAN HALF the effort. [place] lifts, holds or supports trunk or limbs, but provides less than half the effort. 2-Substantial/Maximal Assistance-helper does MORE THAN HALF the effort. [place] lifts or holds trunk or limbs and provides more than half the effort. 8-Nmjkyxjcy-eroxgd does ALL the effort. Patient does none of the effort to complete the activity. Or, the assistance of 2 or more helpers is required for the patient to complete the activity. If activity was not attempted, code reason: 7-Patient Refused. 9-Not Applicable-not attempted and the patient did not perform the activity before the current illness, exacerbation or injury. 10-Not Attempted due to Environmental Limitations-(lack of equipment, weather restraints, etc.). 88-Not Attempted due to Medical Conditions or Safety Concerns. Roll Left to Right (QC): 5 Sit to Lying (QC): 5 Sit to Stand (QC): 3 Chair/Kjj-fs-Vfprc Xfer(QC): 4 Car Transfer (QC): 88 Gait Training Does the Patient Walk?: Yes Distance: 6' x3 Walk 10 feet (QC): 88 Walk 50 ft with 2 Turns(QC): 88 Walk 150 ft (QC): 88 Walking 10ft/uneven surface-QC: 88 Gait Assistive Device: Parallel Bars Wheelchair Training Does the Pt Use a Wheelchair?: Yes Distance: 10 Wheel 50 ft with 2 turns (QC): 6 Wheel 150 ft (QC): 6 Type of Wheelchair: Manual Stair Training 1 Step (curb) (QC): 88 4 Steps (QC): 88 12 Steps (QC): 88 Balance Picking up an Object (QC): 88 ADL-Treatment Eating (QC): 6 (Per pt report.) Oral Hygiene (QC): 6 (Per pt report IND seated) Shower/Bathe Self (QC): 5 (set up seated at SC) Upper Body Dressing (QC): 5 (set up) Lower Body Dressing (QC): 4 (Pt able to thread LEs into pants at w/c, SB to EOB where he was able to lean/roll to perform pant hike. CGA during SB transfer) On/Off Footwear (QC): 6 (IND with TEDhose and bilateral shoes.) Toileting Hygiene (QC): 1 (Assist x2 in stand for pant hike. ) Toilet Transfer (QC): 3 (Mod A via slide board.) Assessment/Plan Assessment and Plan Assess & Plan/Chief Complaint Assessment: Status post right hip fracture repair Oral tobacco use Alcohol use Hypertension Neurogenic bladder Cervical spine injury 1995 Anemia Neurogenic bladder dose self caths at home Plan: DVT prophylaxis Supportive care Bowel regimen 03/16/2021: Check iron level Participation in therapy Pain control 03/17/2021: Supportive care Aggressive rehab 03/18/2021: Urology follow-up Baclofen at night 03/19/2021: None appreciate urology Detrol LA started 03/20/2021: Doing well with therapy Monitor closely 03/21/21: Pain control Detrol LA Baclofen DC next week 03/22/2021: Pain control Appreciate Dr. Guy (1) Intertrochanteric fracture Status: Acute FARIAS,CHENG GIVENS Mar 22, 2021 11:18
--- NOTE | 2021-03-22 14:31 | Therapy Group Daily Note ---
Therapy Daily Group Note Patient Education Topic Other List Below Exercises LE Seated Exercise, UE Exercise Session Ratio (pt:therapist): 4:1 Goal of Session: Education on ARU Expectations, UE/LE Strengthing, Safety with Transfers, Use of Adaptive Equipment Goal Met for this Session: Yes Pt Benefit of Group: Contributions to Others, F/U Use of Strategies @Home, Increased Functional Safety, Increased Functional Strength, Improved Cognition, Recognition of Peers, Socialization Other/Notes Pt participated in group therapy with focus on topics including bed mobility, UE/LE strengthening, safety, tub/shower transfers and DME. He interacted well with others and initiated appropriate questions throughout. Pt able to propel self in w/c to/from group. [facility] to help pt back into bed. Start Time: 13:00 Stop Time: 14:00 Total Billed Treatment Time: 60 Total Billed Treatment 1, group Candice Cox OT Mar 22, 2021 14:31
[2021-03-22] MEDS: ACETAMINOPHEN 325 MG TABLET PO PRN (17:45)
[2021-03-22 20:00] VITALS: BP 125/60
[2021-03-22] MEDS: TOLTERODINE LA 4 MG (DETROL) CAP PO SCH (21:06)
[2021-03-22] MEDS: MELATONIN 3 MG TABLET PO PRN (21:12)
[2021-03-22] MEDS: BACLOFEN 10 MG (LIORESAL) TAB PO PRN (21:12)
--- NOTE | 2021-03-23 05:56 | PM&R Progress Note ---
Subjective HPI/CC On Admission Date Seen by Provider: Mar 23, 2021 Time Seen by Provider: 11:30 Subjective/Events-last exam 03/23/21: No issues reported Pain controlled Moving around well [place] appear to be reddened so will place on Keflex 03/22/2021: Patient doing well [place] are a bit irritated Bowels are moving well Appointment Friday with orthopedics then will return for a few more days of therapy 03/21/21: Pt doing really well Has an appointment next week so will DC him so he can go to his ortho appointment Able to use a wheel chair and slide board since he is used to that since 1965 from a cervical spine injury 03/20/2021: Pt doing really well No major issues Checked meds and labs Detrol LA really helping him Pain is controlled Participating in therapy 03/19/2021: Patient doing well Urology will see him on Friday Detrol LA ordered Bowels are moving 03/18/2021: Patient doing well Incontinence noted with bladder spasms so open to see urology Bowels are moving Incision looks good Baclofen is helped 03/17/2021: Patient doing very well Bowels are moving well Using slide board very well Lortab helps the pain Started baclofen to take at night for spasms 03/16/2021: Patient doing really well Took a shower today Refused laxatives due to loose stools Pain pills are managing the pain Participating in therapy Hemoglobin 7.8 will check iron level Review of Systems General: Fatigue, Malaise Musculoskeletal: leg pain Objective Exam Vital Signs Vital Signs Date Time Temp Pulse Resp B/P (MAP) Pulse Ox O2 Delivery O2 Flow Rate FiO2 03/23/21 20:36 36.8 73 17 126/60 (82) 94 Room Air Capillary Refill : General Appearance: No Apparent Distress, WD/WN, Chronically ill HEENT: PERRL/EOMI, Normal ENT Inspection, Pharynx Normal Neck: Full Range of Motion, Normal Inspection, Non Tender, Supple, Carotid Bruit Respiratory: Chest Non Tender, Lungs Clear, Normal Breath Sounds, No Accessory Muscle Use, No Respiratory Distress Cardiovascular: Regular Rate, Rhythm, No Edema, No Gallop, No JVD, No Murmur, Normal Peripheral Pulses Gastrointestinal: Normal Bowel Sounds, No Organomegaly, No Pulsatile Mass, Non Tender, Soft Back: Normal Inspection, No CVA Tenderness, No Vertebral Tenderness Extremity: Normal Capillary Refill, Normal Inspection, Normal Range of Motion, Non Tender, No Calf Tenderness, No Pedal Edema Neurologic/Psychiatric: Alert, Oriented x3, Normal Mood/Affect, Abnormal Gait, Motor Weakness (Chronic left-sided weakness and minimal weightbearing on right) Skin: Normal Color, Warm/Dry Lymphatic: No Adenopathy Results/Procedures Lab Patient resulted labs reviewed. FIM Transfers Therapy Code Descriptions/Definitions Functional [place] Measure: 0=Not Assessed/NA 4=Minimal Assistance 1=Total Assistance 5=Supervision or Setup 2=Maximal Assistance 6=Modified [place] 3=Moderate Assistance 7=Complete IndependenceSCALE: Activities may be completed with or without assistive devices. 7-Ohnvlomsyc-eoxlsgs completes the activity by him/herself with no assistance from a helper. 5-Set-up or Clean-up Assistance-helper sets up or cleans up; patient completes activity. [place] assists only prior to or following the activity. 4-Supervision or Touching Assistance-helper provides verbal cues and/or touching/steadying and/or contact guard assistance as patient completes activity. Assistance may be provided throughout the activity or intermittently. 3-Partial/Moderate Assistance-helper does LESS THAN HALF the effort. [place] l ifts, holds or supports trunk or limbs, but provides less than half the effort. 2-Substantial/Maximal Assistance-helper does MORE THAN HALF the effort. [place] lifts or holds trunk or limbs and provides more than half the effort. 2-Ahtnmfakc-dmxmsi does ALL the effort. Patient does none of the effort to complete the activity. Or, the assistance of 2 or more helpers is required for t he patient to complete the activity. If activity was not attempted, code reason: 7-Patient Refused. 9-Not Applicable-not attempted and the patient did not perform the activity before the current illness, exacerbation or injury. 10-Not Attempted due to Environmental Limitations-(lack of equipment, weather restraints, etc.). 88-Not Attempted due to Medical Conditions or Safety Concerns. Roll Left to Right (QC): 5 Sit to Lying (QC): 5 Sit to Stand (QC): 3 Chair/Noo-xj-Ahxvr Xfer(QC): 4 Car Transfer (QC): 88 Gait Training Does the Patient Walk?: Yes Distance: 6' x3 Walk 10 feet (QC): 88 Walk 50 ft with 2 Turns(QC): 88 Walk 150 ft (QC): 88 Walking 10ft/uneven surface-QC: 88 Gait Assistive Device: Parallel Bars Wheelchair Training Does the Pt Use a Wheelchair?: Yes Distance: 10 Wheel 50 ft with 2 turns (QC): 6 Wheel 150 ft (QC): 6 Type of Wheelchair: Manual Stair Training 1 Step (curb) (QC): 88 4 Steps (QC): 88 12 Steps (QC): 88 Balance Picking up an Object (QC): 88 ADL-Treatment Eating (QC): 6 (Per pt report.) Oral Hygiene (QC): 6 (Per pt report IND seated) Shower/Bathe Self (QC): 5 (set up seated at SC) Upper Body Dressing (QC): 5 (set up) Lower Body Dressing (QC): 4 (Pt able to thread LEs into pants at w/c, SB to EOB where he was able to lean/roll to perform pant hike. CGA during SB transfer) On/Off Footwear (QC): 6 (IND with TEDhose and bilateral shoes.) Toileting Hygiene (QC): 1 (Assist x2 in stand for pant hike. ) Toilet Transfer (QC): 3 (Mod A via slide board.) Assessment/Plan Assessment and Plan Assess & Plan/Chief Complaint Assessment: Status post right hip fracture repair Oral tobacco use Alcohol use Hypertension Neurogenic bladder Cervical spine injury 1996 Anemia Neurogenic bladder dose self caths at home Early cellulitis staple line placed on Keflex 03/23/21 Plan: DVT prophylaxis Supportive care Bowel regimen 03/16/2021: Check iron level Participation in therapy Pain control 03/17/2021: Supportive care Aggressive rehab 03/18/2021: Urology follow-up Baclofen at night 03/19/2021: None appreciate urology Detrol LA started 03/20/2021: Doing well with therapy Monitor closely 03/21/21: Pain control Detrol LA Baclofen DC next week 03/22/2021: Pain control Appreciate Dr. Guy 03/23/21: Keflex (1) Intertrochanteric fracture Status: Acute CHENG FARIAS DO Mar 23, 2021 05:56
[2021-03-23] MEDS: HYDROcodone/APAP 7.5 MG/325 MG (LORTAB, LORCET PLUS) TABLET PO PRN ×3 (06:27→20:44)
[2021-03-23 07:25] VITALS: BP 141/73
[2021-03-23] MEDS: ACETAMINOPHEN 500 MG TAB (TYLENOL) PO SCH ×2 (07:40→12:20)
[2021-03-23] MEDS: lisINopril 20 MG (PRINIVIL) TABLET PO SCH (07:40)
[2021-03-23] MEDS: DULoxetine 30 MG (CYMBALTA) CAP PO SCH (07:40)
[2021-03-23] MEDS: ENOXAPARIN 40 MG/0.4 ML (LOVENOX) SYR SC SCH (07:40)
[2021-03-23] MEDS: ETODOLAC 300 MG (LODINE) CAP PO SCH ×2 (07:41→17:15)
--- NOTE | 2021-03-23 07:44 | Progress Note - Urology ---
Progress Note-Urology Progress Notes/Assess & Plan Progress/Assessment & Plan CONTINUES VERY WELL ON DETROL LA KEEP ON IT FOR GOOD Final Diagnosis INCONTINENCE RIANA GUILLORY MD Mar 23, 2021 07:44
[2021-03-23] MEDS: FERROUS SULF 325 MG (IRON) TAB PO SCH (07:50)
--- NOTE | 2021-03-23 09:58 | Physical Therapy Daily Note ---
PT Daily Note-Current Subjective Pt in WC with OT in room upon arrival and agrees to co-treat. Pt has no c/o pain at this time. Use of 2 skilled clinicians d/t pt poor mobility, weakness, impulsiveness, balance, low activity tolerance, safety, and decrease risk of falls. Mental Status Patient Orientation: Person, Place, Situation Transfers SCALE: Activities may be completed with or without assistive devices. 0-Spekcyqktr-gbnivll completes the activity by him/herself with no assistance from a helper. 5-Set-up or Clean-up Assistance-helper sets up or cleans up; patient completes activity. [place] assists only prior to or following the activity. 4-Supervision or Touching Assistance-helper provides verbal cues and/or touching/steadying and/or contact guard assistance as patient completes activity. Assistance may be provided throughout the activity or intermittently. 3-Partial/Moderate Assistance-helper does LESS THAN HALF the effort. [place] lifts, holds or supports trunk or limbs, but provides less than half the effort. 2-Substantial/Maximal Assistance-helper does MORE THAN HALF the effort. [place] lifts or holds trunk or limbs and provides more than half the effort. 6-Myivenlcz-piouzn does ALL the effort. Patient does none of the effort to complete the activity. Or, the assistance of 2 or more helpers is required for the patient to complete the activity. If activity was not attempted, code reason: 7-Patient Refused. 9-Not Applicable-not attempted and the patient did not perform the activity before the current illness, exacerbation or injury. 10-Not Attempted due to Environmental Limitations-(lack of equipment, weather restraints, etc.). 88-Not Attempted due to Medical Conditions or Safety Concerns. Sit to Stand (QC): 3 Chair/Eot-rr-Btjgm Xfer(QC): 5 Weight Bearing Right Lower Extremity: Right Touch Toe Bearing Left Lower Extremity: Left Full Weight Bearing Left and Right LE's demonstrates strength deficit from previous C5-T1 SCI Gait Training Does the Patient Walk?: Yes Distance: 12', 10' Walk 10 feet (QC): 3 Gait Assistive Device: FWW Pt amb 12' followed by 10' with FWW and WC follow. Pt has step to gait pattern with WB in UE, able to follow TTWB on R LE Wheelchair Training Does the Pt Use a Wheelchair?: Yes Wheel 50 ft with 2 turns (QC): 6 Wheel 150 ft (QC): 6 Type of Wheelchair: Manual Exercises Seated Therapy Exercises: Sit to stand Treatments OT focused on dressing, UE placement, and UE sequencing. PT focused on transfers, amb, and standing balance. Pt in WC, transfers to bed w/o use of SB, SBA, to don pants. Pt then transfers back to WC, propels WC 200' on ARU to therapy gym. Pt sit <> stand Mihai and amb 6' in // bars CGA. Pt then propels WC to halls. Attempts sit <> stand from WC with FWW, unable to complete first attempt. Pt completes second attempt Mihai, and A to stabilize FWW, and amb 12'. Pt amb another 10', then propels WC back to // bars in therapy gym. Pt completes dynamic standing balance activity, supported with one UE at a time while reaching with other. With use of R UE, pt leans hips on // bars for stability. Pt then propels WC 300' on ARU and returns to room. Pt remains in with all needs met, call light in hand. Assessment Current Status: Fair Progress Pt very impulsive throughout tx, request to complete transfers with no A or supervision. Pt able to safely complete SB transfers SBA, but requires A for sit <> stand transfers PT Short Term Goals Short Term Goals Time Frame: Apr 05, 2021 Roll Left & Right: 6 Sit to lyin Lying to sitting on side of be: 5 Sit to stand: 3 Chair/aqd-au-ytypf transfer: 3 Toilet transfer: 3 Car transfer: 3 Walk 10 feet: 2 Walk 50 feet with two turns: 88 Walk 150 feet: 88 Walking 10ft on uneven surface: 88 1 step (curb): 88 4 steps: 88 12 steps: 88 Picking up objects: 2 Does pt use a wc or scooter: Yes Wheel 50ft w/2 turns: 5 Wheel 150 feet: 5 Type: Manual PT Division Engineer Goals Division Engineer Goals PT Division Engineer Goals Time Frame: May 03, 2021 Roll Left & Right (QC): 6 Sit to Lying (QC): 6 Lying-Sitting on Side/Bed(QC): 6 Sit to Stand (QC): 5 Chair/Qzm-ay-Vkqxi Xfer(QC): 4 Toilet Transfer (QC): 4 Car Transfer (QC): 4 Does the Patient Walk: Yes Walk 10 feet (QC): 4 Walk 50ft with 2 Turns (QC): 3 Walk 150 ft (QC): 3 Walking 10ft on Uneven Surface: 3 1 Step (curb) (QC): 88 4 Steps (QC): 88 12 Steps (QC): 88 Picking up an Object (QC): 4 Does the Pt use WC or Scooter?: Yes Wheel 50 feet with 2 turns (QC: 6 Type: Manual Wheel 150 feet: 6 Type: Manual PT Plan Problem List Problem List: Activity Tolerance, Functional Strength, Safety, Balance, Gait Treatment/Plan Treatment Plan: Continue Plan of Care Treatment Plan: Bed Mobility, Education, Functional Activity [place], Functional Strength, Group Therapy, Gait, Safety, Therapeutic Exercise, Transfers Treatment Duration: May 11, 2021 Frequency: At least 5 of 7 days/Wk (IRF) Estimated Hrs Per Day: 1.5 hours per day Patient and/or Family Agrees t: Yes Safety Risks/Education Patient Education: Gait Training, Transfer Techniques Teaching Recipient: Patient Teaching Methods: Discussion Response to Teaching: Verbalize Understanding, Reinforcement Needed Time/GCodes Time In: 900 Time Out: 1000 Total Billed Treatment Time: 60 Total Billed Treatment 1, GT x2, NM, [facility] [place] [employer] ORDER CLERK Mar 23, 2021 09:58
--- NOTE | 2021-03-23 10:11 | Occupational Ther Daily Note ---
OT Current Status-Daily Note Subjective Pt up on BSC upon OT entry, agreeable to therapy tx. Pt reports he wants to get stronger prior to discharging home. Mental Status/Objective Patient Orientation: Person, Place, Time, Situation ADL-Treatment Therapy Code Descriptions/Definitions Functional [place] Measure: 0=Not Assessed/NA 4=Minimal Assistance 1=Total Assistance 5=Supervision or Setup 2=Maximal Assistance 6=Modified [place] 3=Moderate Assistance 7=Complete IndependenceSCALE: Activities may be completed with or without assistive devices. 6-Ketqlnyaek-ffnxbuc completes the activity by him/herself with no assistance from a helper. 5-Set-up or Clean-up Assistance-helper sets up or cleans up; patient completes activity. [place] assists only prior to or following the activity. 4-Supervision or Touching Assistance-helper provides verbal cues and/or touching/steadying and/or contact guard assistance as patient completes activity. Assistance may be provided throughout the activity or intermittently. 3-Partial/Moderate Assistance-helper does LESS THAN HALF the effort. [place] lifts, holds or supports trunk or limbs, but provides less than half the effort. 2-Substantial/Maximal Assistance-helper does MORE THAN HALF the effort. [place] lifts or holds trunk or limbs and provides more than half the effort. 1-Hgtrfprpr-qxtvfl does ALL the effort. Patient does none of the effort to complete the activity. Or, the assistance of 2 or more helpers is required for the patient to complete the activity. If activity was not attempted, code reason: 7-Patient Refused. 9-Not Applicable-not attempted and the patient did not perform the activity before the current illness, exacerbation or injury. 10-Not Attempted due to Environmental Limitations-(lack of equipment, weather restraints, etc.). 88-Not Attempted due to Medical Conditions or Safety Concerns. Eating (QC): 6 (Per pt report) Oral Hygiene (QC): 6 (Per pt report and clincial judgment, IND seated.) Shower/Bathe Self (QC): 5 (set up, pt able to wash/dry all parts seated on SC.) Upper Body Dressing (QC): 5 (set up assist) Lower Body Dressing (QC): 4 (SBA, pt able to thread LE clothing on SC, transferred to w/c then to bed (SBA), pt completed pant hike at bed level.) On/Off Footwear: 5 (set up, pt able to don tedhose and shoes.) Toilet Transfer (QC): 4 (SBA from [facility] to w/ using SB.) Other Treatment OT tx [id number]: Pt on BS, he was able to manage clothing down and perform hygiene. Pt had taken off all LE clothing in anticipation for shower, thus no QC score given for toileting as pt did not manage any clothing up after task. Pt performed SB transfer from [facility] to w/, then propelled w/c to shower area. Pt transferred to ME, sliding from w/c to ME without SB. Pt completed shower, then donned majority of clothing on ME. Pt attempted to perform pant hike on ME, but was unsuccessful. He transferred back to the /, SBA. Cotreat [id number]: OT/PT cotreat due to skill of 2 clinicians required that a vocational rehabilitation specialist could not perform in order to coordinate UE/LEs, decrease fall risk, and due to pt's limitations in transfers/mobility, impulsivity, and strength. OT focused on UE placement, UE placement, cues for sequencing and safety. PT focused on LE placement, gross overall movement, and transfers/mobility. Pt transferred from /c to B without SB, SBA. Pt able to lean/roll side to side in order to perform pant hike. Pt returned to /, no SB, SBA by sliding between surfaces. Pt propelled to therapy gym, performed functional mobility in parallel bars x1 trial, taken to common area to perform functional mobility with FWW x2 trials. Pt returned to parallel bars, completing x2 standing trials while performing UE task. When pt was standing and using RUE, pt leaned heavily onto parallel bar on L hip, and RUE forearm on table. [facility] room. Post tx, pt up in w/c, call light in reach and all needs met. Min A sit to/from stand transfers. Education OT Patient Education: Correct positioning, Energy conservation, Modified ADL techniques, Progress toward Goal/Update tx plan, Purpose of tx/functional activities, Rehab process, Safety issues, Transfer techniques Teaching Recipient: Patient Teaching Methods: Discussion Response to Teaching: Verbalize Understanding OT Short Term Goals Short Term Goals Time Frame: Mar 29, 2021 Toileting hygiene: 3 Shower/bathe self: 3 Lower body dressin Putting on/taking off footwear: 3 OT [facility] Goals [facility] Goals Time Frame: Apr 13, 2021 Eating (QC): 6 Oral Hygiene (QC): 6 Toileting Hygiene (QC): 4 Shower/Bathe Self (QC): 4 Upper Body Dressing (QC): 5 Lower Body Dressing (QC): 4 On/Off Footwear (QC): 5 Additional Goals: 1-Demonstrate ADL Tasks, 2-Verbalize Understanding, 3- ImproveStrength/Debo 1=Demonstrate adherence to instructed precautions during ADL tasks. 2=Patient will verbalize/demonstrate understanding of assistive devices/modifications for ADL. 3=Patient will improve strength/tolerance for activity to enable patient to perform ADL's. OT Education/Plan Problem List/Assessment Assessment: Decreased Activ Tolerance, Decreased UE Strength, Impaired Funct Balance, Impaired I ADL's, Impaired Self-Care Skills Discharge Recommendations Plan/Recommendations: Continue POC Treatment Plan/Plan of Care Patient would benefit from OT for education, treatment and training to promote independence in ADL's, mobility, safety and/or upper extremity function for ADL's. Plan of Care: ADL Retraining, Functional Mobility, Group Exercise/Act as Ind, UE Funct Exercise/Act Treatment Duration: Apr 13, 2021 Frequency: At least 5 of 7 days/Wk (IRF) Estimated Hrs Per Day: 1.5 hours per day Agreement: Yes Rehab Potential: Fair Time/GCodes Start Time: 08:30 Stop Time: 10:00 Total Time Billed (hr/min): 90 Billed Treatment Time OT tx x30', OT/PT cotreat x60' 1, ADL 2 (30'), FA 4 (60') SOURAV TALBOT OT Mar 23, 2021 10:11
[2021-03-23] MEDS: CEPHALEXIN 250 MG (KEFLEX) CAP PO SCH ×3 (12:21→20:44)
--- NOTE | 2021-03-23 13:29 | Physical Therapy Daily Note ---
PT Daily Note-Current Subjective Pt in WC upon arrival and agrees to tx. Pt has no c/o pain at this time. Post sit <> stands, pt states burning in R hip Pain Location: Right Location Body Site: Hip Pain Description: Burning Mental Status Patient Orientation: Person, Place, Time, Situation Transfers SCALE: Activities may be completed with or without assistive devices. 0-Rvxfrgjlvr-bycjcpu completes the activity by him/herself with no assistance from a helper. 5-Set-up or Clean-up Assistance-helper sets up or cleans up; patient completes activity. [place] assists only prior to or following the activity. 4-Supervision or Touching Assistance-helper provides verbal cues and/or touching/steadying and/or contact guard assistance as patient completes activity. Assistance may be provided throughout the activity or intermittently. 3-Partial/Moderate Assistance-helper does LESS THAN HALF the effort. [place] lifts, holds or supports trunk or limbs, but provides less than half the effort. 2-Substantial/Maximal Assistance-helper does MORE THAN HALF the effort. [place] lifts or holds trunk or limbs and provides more than half the effort. 8-Uxpfdqvlg-zkrhzv does ALL the effort. Patient does none of the effort to complete the activity. Or, the assistance of 2 or more helpers is required for the patient to complete the activity. If activity was not attempted, code reason: 7-Patient Refused. 9-Not Applicable-not attempted and the patient did not perform the activity before the current illness, exacerbation or injury. 10-Not Attempted due to Environmental Limitations-(lack of equipment, weather restraints, etc.). 88-Not Attempted due to Medical Conditions or Safety Concerns. Sit to Stand (QC): 3 ModA sit <> stand transfers with FWW for stability and to support FWW Weight Bearing Right Lower Extremity: Right Touch Toe Bearing Left Lower Extremity: Left Full Weight Bearing Left and Right LE's demonstrates strength deficit from previous C5-T1 SCI Wheelchair Training Does the Pt Use a Wheelchair?: Yes Exercises Seated Therapy Exercises: Ankle pumps, Sit to stand, Hip abd/add, Glut set Seated Reps: 10 Treatments Pt completes sit <> stand transfers, ModA with FWW from x9. Pt states when at home he would use a counter to stand up as it is more stable, attempts sit <> stand from counter in room, requires CGA. Pt then completes seated ex in WC, remains in WC with all needs met and call light in hand. Assessment Current Status: Fair Progress Pt increasing strength, endurance, and mobility. Fatigues easily and requires frequent rest breaks PT Short Term Goals Short Term Goals Time Frame: Apr 05, 2021 Roll Left & Right: 6 Sit to lyin Lying to sitting on side of be: 5 Sit to stand: 3 Chair/das-rv-ukixe transfer: 3 Toilet transfer: 3 Car transfer: 3 Walk 10 feet: 2 Walk 50 feet with two turns: 88 Walk 150 feet: 88 Walking 10ft on uneven surface: 88 1 step (curb): 88 4 steps: 88 12 steps: 88 Picking up objects: 2 Does pt use a wc or scooter: Yes Wheel 50ft w/2 turns: 5 Wheel 150 feet: 5 Type: Manual PT Skilled Nursing Goals Set Builder Goals PT Skilled Nursing Goals Time Frame: May 03, 2021 Roll Left & Right (QC): 6 Sit to Lying (QC): 6 Lying-Sitting on Side/Bed(QC): 6 Sit to Stand (QC): 5 Chair/Bpo-yr-Dhudf Xfer(QC): 4 Toilet Transfer (QC): 4 Car Transfer (QC): 4 Does the Patient Walk: Yes Walk 10 feet (QC): 4 Walk 50ft with 2 Turns (QC): 3 Walk 150 ft (QC): 3 Walking 10ft on Uneven Surface: 3 1 Step (curb) (QC): 88 4 Steps (QC): 88 12 Steps (QC): 88 Picking up an Object (QC): 4 Does the Pt use WC or Scooter?: Yes Wheel 50 feet with 2 turns (QC: 6 Type: Manual Wheel 150 feet: 6 Type: Manual PT Plan Treatment/Plan Treatment Plan: Continue Plan of Care Treatment Plan: Bed Mobility, Education, Functional Activity Debo, Functional Strength, Group Therapy, Gait, Safety, Therapeutic Exercise, Transfers Treatment Duration: May 11, 2021 Frequency: At least 5 of 7 days/Wk (IRF) Estimated Hrs Per Day: 1.5 hours per day Patient and/or Family Agrees t: Yes Time/GCodes Time In: 1300 Time Out: 1330 Total Billed Treatment Time: 30 Total Billed Treatment 1, Ex, MOIRA SAWYER OCCUPATIONAL HEALTH PHYSICIAN Mar 23, 2021 13:29
[2021-03-23 20:36] VITALS: BP 126/60
[2021-03-23] MEDS: TOLTERODINE LA 4 MG (DETROL) CAP PO SCH (20:43)
[2021-03-23] MEDS: BACLOFEN 10 MG (LIORESAL) TAB PO PRN (20:44)
[2021-03-24 07:30] VITALS: BP 119/69
[2021-03-24] MEDS: ETODOLAC 300 MG (LODINE) CAP PO SCH ×2 (08:37→17:10)
[2021-03-24] MEDS: CEPHALEXIN 250 MG (KEFLEX) CAP PO SCH ×4 (08:39→20:34)
[2021-03-24] MEDS: lisINopril 20 MG (PRINIVIL) TABLET PO SCH (08:39)
[2021-03-24] MEDS: ACETAMINOPHEN 500 MG TAB (TYLENOL) PO SCH ×2 (08:39→20:34)
[2021-03-24] MEDS: ENOXAPARIN 40 MG/0.4 ML (LOVENOX) SYR SC SCH (08:39)
[2021-03-24] MEDS: DULoxetine 30 MG (CYMBALTA) CAP PO SCH (08:39)
--- NOTE | 2021-03-24 11:00 | PM&R Progress Note ---
Subjective HPI/CC On Admission Date Seen by Provider: Mar 24, 2021 Time Seen by Provider: 11:00 Subjective/Events-last exam 03/24/21: Patient doing well Pain controlled Incision looks good BM+ 03/23/21: No issues reported Pain controlled Moving around well [place] appear to be reddened so will place on Keflex 03/22/2021: Patient doing well [place] are a bit irritated Bowels are moving well Appointment Friday with orthopedics then will return for a few more days of therapy 03/21/21: Pt doing really well Has an appointment next week so will DC him so he can go to his ortho appointment Able to use a wheel chair and slide board since he is used to that since 1965 from a cervical spine injury 03/20/2021: Pt doing really well No major issues Checked meds and labs Detrol LA really helping him Pain is controlled Participating in therapy 03/19/2021: Patient doing well Urology will see him on Friday Detrol LA ordered Bowels are moving 03/18/2021: Patient doing well Incontinence noted with bladder spasms so open to see urology Bowels are moving Incision looks good Baclofen is helped 03/17/2021: Patient doing very well Bowels are moving well Using slide board very well Lortab helps the pain Started baclofen to take at night for spasms 03/16/2021: Patient doing really well Took a shower today Refused laxatives due to loose stools Pain pills are managing the pain Participating in therapy Hemoglobin 7.8 will check iron level Review of Systems General: Fatigue, Malaise Objective Exam Vital Signs Vital Signs Date Time Temp Pulse Resp B/P (MAP) Pulse Ox O2 Delivery O2 Flow Rate FiO2 03/25/21 07:28 36.8 84 20 104/53 (70) 97 Room Air Capillary Refill : General Appearance: No Apparent Distress, WD/WN, Chronically ill HEENT: PERRL/EOMI, Normal ENT Inspection, Pharynx Normal Neck: Full Range of Motion, Normal Inspection, Non Tender, Supple, Carotid Bruit Respiratory: Chest Non Tender, Lungs Clear, Normal Breath Sounds, No Accessory Muscle Use, No Respiratory Distress Cardiovascular: Regular Rate, Rhythm, No Edema, No Gallop, No JVD, No Murmur, Normal Peripheral Pulses Gastrointestinal: Normal Bowel Sounds, No Organomegaly, No Pulsatile Mass, Non Tender, Soft Back: Normal Inspection, No CVA Tenderness, No Vertebral Tenderness Extremity: Normal Capillary Refill, Normal Inspection, Normal Range of Motion, Non Tender, No Calf Tenderness, No Pedal Edema Neurologic/Psychiatric: Alert, Oriented x3, Normal Mood/Affect, Abnormal Gait, Motor Weakness (Chronic left-sided weakness and minimal weightbearing on right) Skin: Normal Color, Warm/Dry Lymphatic: No Adenopathy Results/Procedures Lab Patient resulted labs reviewed. FIM Transfers Therapy Code Descriptions/Definitions Functional [place] Measure: 0=Not Assessed/NA 4=Minimal Assistance 1=Total Assistance 5=Supervision or Setup 2=Maximal Assistance 6=Modified [place] 3=Moderate Assistance 7=Complete IndependenceSCALE: Activities may be completed with or without assistive devices. 0-Usexuxtxji-dpvpcfc completes the activity by him/herself with no assistance from a helper. 5-Set-up or Clean-up Assistance-helper sets up or cleans up; patient completes activity. [place] assists only prior to or following the activity. 4-Supervision or Touching Assistance-helper provides verbal cues and/or touching/steadying and/or contact guard assistance as patient completes activity. Assistance may be provided throughout the activity or intermittently. 3-Partial/Moderate Assistance-helper does LESS THAN HALF the effort. [place] lifts, holds or supports trunk or limbs, but provides less than half the effort. 2-Substantial/Maximal Assistance-helper does MORE THAN HALF the effort. [place] lifts or holds trunk or limbs and provides more than half the effort. 5-Rouqjpeyp-zknlxq does ALL the effort. Patient does none of the effort to complete the activity. Or, the assistance of 2 or more helpers is required for the patient to complete the activity. If activity was not attempted, code reason: 7-Patient Refused. 9-Not Applicable-not attempted and the patient did not perform the activity before the current illness, exacerbation or injury. 10-Not Attempted due to Environmental Limitations-(lack of equipment, weather restraints, etc.). 88-Not Attempted due to Medical Conditions or Safety Concerns. Roll Left to Right (QC): 5 Sit to Lying (QC): 5 Sit to Stand (QC): 3 Chair/Ivi-bd-Prjgx Xfer(QC): 5 Car Transfer (QC): 88 Gait Training Does the Patient Walk?: Yes Distance: 12', 10' Walk 10 feet (QC): 3 Walk 50 ft with 2 Turns(QC): 88 Walk 150 ft (QC): 88 Walking 10ft/uneven surface-QC: 88 Gait Assistive Device: FWW Wheelchair Training Does the Pt Use a Wheelchair?: Yes Distance: 10 Wheel 50 ft with 2 turns (QC): 6 Wheel 150 ft (QC): 6 Type of Wheelchair: Manual Stair Training 1 Step (curb) (QC): 88 4 Steps (QC): 88 12 Steps (QC): 88 Balance Picking up an Object (QC): 88 ADL-Treatment Eating (QC): 6 (Per pt report) Oral Hygiene (QC): 6 (Per pt report and clincial judgment, IND seated.) Shower/Bathe Self (QC): 5 (set up, pt able to wash/dry all parts seated on SC.) Upper Body Dressing (QC): 5 (set up assist) Lower Body Dressing (QC): 4 (SBA, pt able to thread LE clothing on SC, transferred to w/c then to bed (SBA), pt completed pant hike at bed level.) On/Off Footwear (QC): 5 (set up, pt able to don tedhose and shoes.) Toileting Hygiene (QC): 1 (Assist x2 in stand for pant hike. ) Toilet Transfer (QC): 4 (SBA from [facility] to w/c using SB.) Assessment/Plan Assessment and Plan Assess & Plan/Chief Complaint Assessment: Status post right hip fracture repair Oral tobacco use Alcohol use Hypertension Neurogenic bladder Cervical spine injury 1996 Anemia Neurogenic bladder dose self caths at home Early cellulitis staple line placed on Keflex 03/23/21 Plan: DVT prophylaxis Supportive care Bowel regimen 03/16/2021: Check iron level Participation in therapy Pain control 03/17/2021: Supportive care Aggressive rehab 03/18/2021: Urology follow-up Baclofen at night 03/19/2021: None appreciate urology Detrol LA started 03/20/2021: Doing well with therapy Monitor closely 03/21/21: Pain control Detrol LA Baclofen DC next week 03/22/2021: Pain control Appreciate Dr. Guy 03/23/21: Keflex 03/24/21: BM regimen Pain control (1) Intertrochanteric fracture Status: Acute CHENG FARIAS DO Mar 24, 2021 11:00
[2021-03-24] MEDS: HYDROcodone/APAP 7.5 MG/325 MG (LORTAB, LORCET PLUS) TABLET PO PRN (11:07)
--- NOTE | 2021-03-24 11:20 | Physical Therapy Daily Note ---
PT Daily Note-Current Subjective Pt sitting in [facility] in room upon arrival. Pt agrees to Pt for walking in //bars. Pain Location: No Pain Reported Mental Status Patient Orientation: Person, Place, Time, Situation Transfers SCALE: Activities may be completed with or without assistive devices. 4-Kcywpszhzs-jhtghde completes the activity by him/herself with no assistance from a helper. 5-Set-up or Clean-up Assistance-helper sets up or cleans up; patient completes activity. [place] assists only prior to or following the activity. 4-Supervision or Touching Assistance-helper provides verbal cues and/or touching/steadying and/or contact guard assistance as patient completes activity. Assistance may be provided throughout the activity or intermittently. 3-Partial/Moderate Assistance-helper does LESS THAN HALF the effort. [place] lifts, holds or supports trunk or limbs, but provides less than half the effort. 2-Substantial/Maximal Assistance-helper does MORE THAN HALF the effort. [place] l ifts or holds trunk or limbs and provides more than half the effort. 5-Uaslybzgs-jrovzl does ALL the effort. Patient does none of the effort to complete the activity. Or, the assistance of 2 or more helpers is required for the patient to complete the activity. If activity was not attempted, code reason: 7-Patient Refused. 9-Not Applicable-not attempted and the patient did not perform the activity before the current illness, exacerbation or injury. 10-Not Attempted due to Environmental Limitations-(lack of equipment, weather restraints, etc.). 88-Not Attempted due to Medical Conditions or Safety Concerns. Sit to Stand (QC): 3 Weight Bearing Right Lower Extremity: Right Touch Toe Bearing Left Lower Extremity: Left Full Weight Bearing Left and Right LE's demonstrates strength deficit from previous C5-T1 SCI Gait Training Does the Patient Walk?: Yes Distance: 6' x6 Walk 10 feet (QC): 4 Gait Persons Needed: 1 Gait Assistive Device: Parallel Bars Wheelchair Training Does the Pt Use a Wheelchair?: Yes Wheel 50 ft with 2 turns (QC): 6 Wheel 150 ft (QC): 6 Type of Wheelchair: Manual Treatments Pt propels [facility] in hallway and to Therapy Gym. Pt amb. in //bars with a couple RB as needed. Pt returns to [facility] to rest then propels back to room, declines need for BR. Pt wants to stay in [facility] with all needs met, call light in hand. Assessment Current Status: Good Progress Pt is motivated to push self to continue to gain strength and activity tolerance. PT Short Term Goals Short Term Goals Time Frame: Apr 05, 2021 Roll Left & Right: 6 Sit to lyin Lying to sitting on side of be: 5 Sit to stand: 3 Chair/mlx-bh-taimr transfer: 3 Toilet transfer: 3 Car transfer: 3 Walk 10 feet: 2 Walk 50 feet with two turns: 88 Walk 150 feet: 88 Walking 10ft on uneven surface: 88 1 step (curb): 88 4 steps: 88 12 steps: 88 Picking up objects: 2 Does pt use a wc or scooter: Yes Wheel 50ft w/2 turns: 5 Wheel 150 feet: 5 Type: Manual PT Mcc Goals Soda Tester Goals PT Mcc Goals Time Frame: May 03, 2021 Roll Left & Right (QC): 6 Sit to Lying (QC): 6 Lying-Sitting on Side/Bed(QC): 6 Sit to Stand (QC): 5 Chair/Jlv-cd-Znpmw Xfer(QC): 4 Toilet Transfer (QC): 4 Car Transfer (QC): 4 Does the Patient Walk: Yes Walk 10 feet (QC): 4 Walk 50ft with 2 Turns (QC): 3 Walk 150 ft (QC): 3 Walking 10ft on Uneven Surface: 3 1 Step (curb) (QC): 88 4 Steps (QC): 88 12 Steps (QC): 88 Picking up an Object (QC): 4 Does the Pt use WC or Scooter?: Yes Wheel 50 feet with 2 turns (QC: 6 Type: Manual Wheel 150 feet: 6 Type: Manual PT Plan Problem List Problem List: Gait, Transfer Treatment/Plan Treatment Plan: Continue Plan of Care Treatment Plan: Bed Mobility, Education, Functional Activity Debo, Functional Strength, Group Therapy, Gait, Safety, Therapeutic Exercise, Transfers Treatment Duration: May 11, 2021 Frequency: At least 5 of 7 days/Wk (IRF) Estimated Hrs Per Day: 1.5 hours per day Patient and/or Family Agrees t: Yes Safety Risks/Education Patient Education: Gait Training, Transfer Techniques, Correct Positioning Teaching Recipient: Patient Teaching Methods: Discussion Response to Teaching: Verbalize Understanding Time/GCodes Time In: 1040 Time Out: 1105 Total Billed Treatment Time: 25 Total Billed Treatment 1, GT (15m) & FA (10m) AISHA BURNS IRRIGATOR GRAVITY FLOW Mar 24, 2021 11:20
[2021-03-24 19:26] VITALS: BP 121/58
[2021-03-24] MEDS: TOLTERODINE LA 4 MG (DETROL) CAP PO SCH (20:34)
[2021-03-24] MEDS: BACLOFEN 10 MG (LIORESAL) TAB PO PRN (20:34)
[2021-03-25] MEDS: ACETAMINOPHEN 325 MG TABLET PO PRN (06:45)
[2021-03-25 07:28] VITALS: BP 104/53
--- NOTE | 2021-03-25 07:45 | PM&R Progress Note ---
Subjective HPI/CC On Admission Date Seen by Provider: Mar 25, 2021 Time Seen by Provider: 14:45 Subjective/Events-last exam 03/25/21: Patient has no new issues BM+ No falls Improved transfers 03/24/21: Patient doing well Pain controlled Incision looks good BM+ 03/23/21: No issues reported Pain controlled Moving around well [place] appear to be reddened so will place on Keflex 03/22/2021: Patient doing well Kaitlyn are a bit irritated Bowels are moving well Appointment Friday with orthopedics then will return for a few more days of therapy 03/21/21: Pt doing really well Has an appointment next week so will DC him so he can go to his ortho appointment Able to use a wheel chair and slide board since he is used to that since 1965 from a cervical spine injury 03/20/2021: Pt doing really well No major issues Checked meds and labs Detrol LA really helping him Pain is controlled Participating in therapy 03/19/2021: Patient doing well Urology will see him on Friday Detrol LA ordered Bowels are moving 03/18/2021: Patient doing well Incontinence noted with bladder spasms so open to see urology Bowels are moving Incision looks good Baclofen is helped 03/17/2021: Patient doing very well Bowels are moving well Using slide board very well Lortab helps the pain Started baclofen to take at night for spasms 03/16/2021: Patient doing really well Took a shower today Refused laxatives due to loose stools Pain pills are managing the pain Participating in therapy Hemoglobin 7.8 will check iron level Review of Systems General: Fatigue, Malaise Neurological: Weakness Objective Exam Vital Signs Vital Signs Date Time Temp Pulse Resp B/P (MAP) Pulse Ox O2 Delivery O2 Flow Rate FiO2 03/25/21 20:00 Room Air 03/25/21 20:00 37.2 70 20 114/57 (76) 95 Capillary Refill : General Appearance: No Apparent Distress, WD/WN, Chronically ill HEENT: PERRL/EOMI, Normal ENT Inspection, Pharynx Normal Neck: Full Range of Motion, Normal Inspection, Non Tender, Supple, Carotid Bruit Respiratory: Chest Non Tender, Lungs Clear, Normal Breath Sounds, No Accessory Muscle Use, No Respiratory Distress Cardiovascular: Regular Rate, Rhythm, No Edema, No Gallop, No JVD, No Murmur, Normal Peripheral Pulses Gastrointestinal: Normal Bowel Sounds, No Organomegaly, No Pulsatile Mass, Non Tender, Soft Back: Normal Inspection, No CVA Tenderness, No Vertebral Tenderness Extremity: Normal Capillary Refill, Normal Inspection, Normal Range of Motion, Non Tender, No Calf Tenderness, No Pedal Edema Neurologic/Psychiatric: Alert, Oriented x3, Normal Mood/Affect, Abnormal Gait, Motor Weakness (Chronic left-sided weakness and minimal weightbearing on right) Skin: Normal Color, Warm/Dry Lymphatic: No Adenopathy Results/Procedures Lab Patient resulted labs reviewed. FIM Transfers Therapy Code Descriptions/Definitions Functional [place] Measure: 0=Not Assessed/NA 4=Minimal Assistance 1=Total Assistance 5=Supervision or Setup 2=Maximal Assistance 6=Modified [place] 3=Moderate Assistance 7=Complete IndependenceSCALE: Activities may be completed with or without assistive devices. 6-Vrfypvjmbg-agzvybz completes the activity by him/herself with no assistance from a helper. 5-Set-up or Clean-up Assistance-helper sets up or cleans up; patient completes activity. [place] assists only prior to or following the activity. 4-Supervision or Touching Assistance-helper provides verbal cues and/or touching/steadying and/or contact guard assistance as patient completes a ctivity. Assistance may be provided throughout the activity or intermittently. 3-Partial/Moderate Assistance-helper does LESS THAN HALF the effort. [place] lifts, holds or supports trunk or limbs, but provides less than half the effort. 2-Substantial/Maximal Assistance-helper does MORE THAN HALF the effort. [place] lifts or holds trunk or limbs and provides more than half the effort. 6-Czaoubdso-wciqea does ALL the effort. Patient does none of the effort to complete the activity. Or, the assistance of 2 or more helpers is required for the patient to complete the activity. If activity was not attempted, code reason: 7-Patient Refused. 9-Not Applicable-not attempted and the patient did not perform the activity before the current illness, exacerbation or injury. 10-Not Attempted due to Environmental Limitations-(lack of equipment, weather restraints, etc.). 88-Not Attempted due to Medical Conditions or Safety Concerns. Roll Left to Right (QC): 5 Sit to Lying (QC): 5 Sit to Stand (QC): 3 Chair/Mjd-ln-Aupdi Xfer(QC): 5 Car Transfer (QC): 88 Gait Training Does the Patient Walk?: Yes Distance: 6' x6 Walk 10 feet (QC): 4 Walk 50 ft with 2 Turns(QC): 88 Walk 150 ft (QC): 88 Walking 10ft/uneven surface-QC: 88 Gait Persons Needed: 1 Gait Assistive Device: Parallel Bars Wheelchair Training Does the Pt Use a Wheelchair?: Yes Distance: 10 Wheel 50 ft with 2 turns (QC): 6 Wheel 150 ft (QC): 6 Type of Wheelchair: Manual Stair Training 1 Step (curb) (QC): 88 4 Steps (QC): 88 12 Steps (QC): 88 Balance Picking up an Object (QC): 88 ADL-Treatment Eating (QC): 6 (Per pt report) Oral Hygiene (QC): 6 (Per pt report and clincial judgment, IND seated.) Shower/Bathe Self (QC): 5 (set up, pt able to wash/dry all parts seated on SC.) Upper Body Dressing (QC): 5 (set up assist) Lower Body Dressing (QC): 4 (SBA, pt able to thread LE clothing on SC, transferred to w/c then to bed (SBA), pt completed pant hike at bed level.) On/Off Footwear (QC): 5 (set up, pt able to don tedhose and shoes.) Toileting Hygiene (QC): 1 (Assist x2 in stand for pant hike. ) Toilet Transfer (QC): 4 (SBA from [facility] [place] to w/c using SB.) Assessment/Plan Assessment and Plan Assess & Plan/Chief Complaint Assessment: Status post right hip fracture repair Oral tobacco use Alcohol use Hypertension Neurogenic bladder Cervical spine injury 1995 Anemia Neurogenic bladder dose self caths at home Early cellulitis staple line placed on Keflex 03/23/21 Plan: DVT prophylaxis Supportive care Bowel regimen 03/16/2021: Check iron level Participation in therapy Pain control 03/17/2021: Supportive care Aggressive rehab 03/18/2021: Urology follow-up Baclofen at night 03/19/2021: None appreciate urology Detrol LA started 03/20/2021: Doing well with therapy Monitor closely 03/21/21: Pain control Detrol LA Baclofen DC next week 03/22/2021: Pain control Appreciate Dr. Guy 03/23/21: Keflex 03/24/21: BM regimen Pain control 03/25/21: Continue pain management (1) Intertrochanteric fracture Status: Acute CHENG FARIAS DO Mar 25, 2021 07:45
[2021-03-25] MEDS: ETODOLAC 300 MG (LODINE) CAP PO SCH ×2 (09:16→17:04)
[2021-03-25] MEDS: lisINopril 20 MG (PRINIVIL) TABLET PO SCH (09:16)
[2021-03-25] MEDS: DULoxetine 30 MG (CYMBALTA) CAP PO SCH (09:16)
[2021-03-25] MEDS: CEPHALEXIN 250 MG (KEFLEX) CAP PO SCH ×4 (09:17→19:54)
[2021-03-25] MEDS: ENOXAPARIN 40 MG/0.4 ML (LOVENOX) SYR SC SCH (09:17)
[2021-03-25] MEDS: ACETAMINOPHEN 500 MG TAB (TYLENOL) PO SCH ×2 (09:17→19:54)
[2021-03-25] MEDS: FERROUS SULF 325 MG (IRON) TAB PO SCH (09:20)
[2021-03-25 09:31] VITALS: BP 116/56
[2021-03-25] MEDS: BACLOFEN 10 MG (LIORESAL) TAB PO PRN (19:54)
[2021-03-25] MEDS: TOLTERODINE LA 4 MG (DETROL) CAP PO SCH (19:54)
[2021-03-25 20:00] VITALS: BP 114/57
[2021-03-25] MEDS: MELATONIN 3 MG TABLET PO PRN (22:27)
[2021-03-26 05:52] LABS: BASOPHILS # (AUTO) 0.1 10^3/uL (0.0-0.1); BASOPHILS % (AUTO) 1 % (0-10); EOSINOPHILS # (AUTO) 0.3 10^3/uL (0.0-0.3); EOSINOPHILS % (AUTO) 5 % (0-10); HEMATOCRIT 32 % (40-54); HEMOGLOBIN 9.8 g/dL (13.3-17.7); LYMPHOCYTES # (AUTO) 1.1 10^3/uL (1.0-4.0); LYMPHOCYTES % (AUTO) 20 % (12-44); MEAN CORPUSCULAR HEMOGLOBIN 29 pg (25-34); MEAN CORPUSCULAR HGB CONC 31 g/dL (32-36); MEAN CORPUSCULAR VOLUME 96 fL (80-99); MEAN PLATELET VOLUME 9.4 fL (9.0-12.2); MONOCYTES # (AUTO) 0.5 10^3/uL (0.0-1.0); MONOCYTES % (AUTO) 9 % (0-12); NEUTROPHILS # (AUTO) 3.4 10^3/uL (1.8-7.8); NEUTROPHILS % (AUTO) 64 % (42-75); PLATELET COUNT 318 10^3/uL (130-400); WHITE BLOOD COUNT 5.4 10^3/uL (4.3-11.0)
[2021-03-26 06:08] LABS: ALBUMIN 3.3 GM/DL (3.2-4.5)
[2021-03-26 06:09] LABS: POTASSIUM 4.4 MMOL/L (3.6-5.0)
[2021-03-26 06:10] LABS: CALCIUM 8.5 MG/DL (8.5-10.1)
[2021-03-26 06:11] LABS: TOTAL PROTEIN 6.2 GM/DL (6.4-8.2)
[2021-03-26 06:13] LABS: BILIRUBIN,TOTAL 0.6 MG/DL (0.1-1.0)
[2021-03-26 06:15] LABS: CREATININE SERUM 0.73 MG/DL (0.60-1.30)
--- NOTE | 2021-03-26 06:45 | PM&R Progress Note ---
Subjective HPI/CC On Admission Date Seen by Provider: Mar 26, 2021 Time Seen by Provider: 09:00 Subjective/Events-last exam 03/26/2021: Pt doing well Dr. Guy is very pleased with his results from Detrol-LA No incontinence Trial of no pain medication today Bowels are moving 03/25/21: Patient has no new issues BM+ No falls Improved transfers 03/24/21: Patient doing well Pain controlled Incision looks good BM+ 03/23/21: No issues reported Pain controlled Moving around well [place] appear to be reddened so will place on Keflex 03/22/2021: Patient doing well Kaitlyn are a bit irritated Bowels are moving well Appointment Friday with orthopedics then will return for a few more days of therapy 03/21/21: Pt doing really well Has an appointment next week so will DC him so he can go to his ortho a ppointment Able to use a wheel chair and slide board since he is used to that since 1965 from a cervical spine injury 03/20/2021: Pt doing really well No major issues Checked meds and labs Detrol LA really helping him Pain is controlled Participating in therapy 03/19/2021: Patient doing well Urology will see him on Friday Detrol LA ordered Bowels are moving 03/18/2021: Patient doing well Incontinence noted with bladder spasms so open to see urology Bowels are moving Incision looks good Baclofen is helped 03/17/2021: Patient doing very well Bowels are moving well Using slide board very well Lortab helps the pain Started baclofen to take at night for spasms 03/16/2021: Patient doing really well Took a shower today Refused laxatives due to loose stools Pain pills are managing the pain Participating in therapy Hemoglobin 7.8 will check iron level Review of Systems General: Fatigue, Malaise Objective Exam Vital Signs Vital Signs Date Time Temp Pulse Resp B/P (MAP) Pulse Ox O2 Delivery O2 Flow Rate FiO2 03/26/21 20:09 Room Air 03/26/21 19:50 37.2 78 20 107/68 (81) 96 Capillary Refill : General Appearance: No Apparent Distress, WD/WN, Chronically ill HEENT: PERRL/EOMI, Normal ENT Inspection, Pharynx Normal Neck: Full Range of Motion, Normal Inspection, Non Tender, Supple, Carotid Bruit Respiratory: Chest Non Tender, Lungs Clear, Normal Breath Sounds, No Accessory Muscle Use, No Respiratory Distress Cardiovascular: Regular Rate, Rhythm, No Edema, No Gallop, No JVD, No Murmur, Normal Peripheral Pulses Gastrointestinal: Normal Bowel Sounds, No Organomegaly, No Pulsatile Mass, Non Tender, Soft Back: Normal Inspection, No CVA Tenderness, No Vertebral Tenderness Extremity: Normal Capillary Refill, Normal Inspection, Normal Range of Motion, Non Tender, No Calf Tenderness, No Pedal Edema Neurologic/Psychiatric: Alert, Oriented x3, Normal Mood/Affect, Abnormal Gait, Motor Weakness (Chronic left-sided weakness and minimal weightbearing on right) Skin: Normal Color, Warm/Dry Lymphatic: No Adenopathy Results/Procedures Lab Laboratory Tests 03/26/21 05:46 Patient resulted labs reviewed. FIM Transfers Therapy Code Descriptions/Definitions Functional [place] Measure: 0=Not Assessed/NA 4=Minimal Assistance 1=Total Assistance 5=Supervision or Setup 2=Maximal Assistance 6=Modified [place] 3=Moderate Assistance 7=Complete IndependenceSCALE: Activities may be completed with or without assistive devices. 1-Luvpbiebiw-evirmwx completes the activity by him/herself with no assistance from a helper. 5-Set-up or Clean-up Assistance-helper sets up or cleans up; patient completes activity. [place] assists only prior to or following the activity. 4-Supervision or Touching Assistance-helper provides verbal cues and/or touching/steadying and/or contact guard assistance as patient completes activity. Assistance may be provided throughout the activity or intermittently. 3-Partial/Moderate Assistance-helper does LESS THAN HALF the effort. [place] lifts, holds or supports trunk or limbs, but provides less than half the effort. 2-Substantial/Maximal Assistance-helper does MORE THAN HALF the effort. [place] lifts or holds trunk or limbs and provides more than half the effort. 6-Iixcyxwke-nwsdtq does ALL the effort. Patient does none of the effort to complete the activity. Or, the assistance of 2 or more helpers is required for the patient to complete the activity. If activity was not attempted, code reason: 7-Patient Refused. 9-Not Applicable-not attempted and the patient did not perform the activity before the current illness, exacerbation or injury. 10-Not Attempted due to Environmental Limitations-(lack of equipment, weather restraints, etc.). 88-Not Attempted due to Medical Conditions or Safety Concerns. Roll Left to Right (QC): 5 Sit to Lying (QC): 5 Sit to Stand (QC): 3 Chair/Evj-la-Uctrj Xfer(QC): 5 Car Transfer (QC): 88 Gait Training Does the Patient Walk?: Yes Distance: 6' x6 Walk 10 feet (QC): 4 Walk 50 ft with 2 Turns(QC): 88 Walk 150 ft (QC): 88 Walking 10ft/uneven surface-QC: 88 Gait Persons Needed: 1 Gait Assistive Device: Parallel Bars Wheelchair Training Does the Pt Use a Wheelchair?: Yes Distance: 10 Wheel 50 ft with 2 turns (QC): 6 Wheel 150 ft (QC): 6 Type of Wheelchair: Manual Stair Training 1 Step (curb) (QC): 88 4 Steps (QC): 88 12 Steps (QC): 88 Balance Picking up an Object (QC): 88 ADL-Treatment Eating (QC): 6 (Per pt report) Oral Hygiene (QC): 6 (Per pt report and clincial judgment, IND seated.) Shower/Bathe Self (QC): 5 (set up, pt able to wash/dry all parts seated on SC.) Upper Body Dressing (QC): 5 (set up assist) Lower Body Dressing (QC): 4 (SBA, pt able to thread LE clothing on SC, transferred to w/c then to bed (SBA), pt completed pant hike at bed level.) On/Off Footwear (QC): 5 (set up, pt able to don tedhose and shoes.) Toileting Hygiene (QC): 1 (Assist x2 in stand for pant hike. ) Toilet Transfer (QC): 4 (SBA from [facility] [place] to w/c using SB.) Assessment/Plan Assessment and Plan Assess & Plan/Chief Complaint Assessment: Status post right hip fracture repair Oral tobacco use Alcohol use Hypertension Neurogenic bladder Cervical spine injury 1996 Anemia Neurogenic bladder dose self caths at home Early cellulitis staple line placed on Keflex 03/23/21 Plan: DVT prophylaxis Supportive care Bowel regimen 03/16/2021: Check iron level Participation in therapy Pain control 03/17/2021: Supportive care Aggressive rehab 03/18/2021: Urology follow-up Baclofen at night 03/19/2021: None appreciate urology Detrol LA started 03/20/2021: Doing well with therapy Monitor closely 03/21/21: Pain control Detrol LA Baclofen DC next week 03/22/2021: Pain control Appreciate Dr. Guy 03/23/21: Keflex 03/24/21: BM regimen Pain control 03/25/21: Continue pain management 03/26/2021: Keflex Ortho appointment Friday (1) Intertrochanteric fracture Status: Acute CHENG FARIAS DO Mar 26, 2021 06:45
[2021-03-26 07:31] VITALS: BP 127/58
[2021-03-26] MEDS: ETODOLAC 300 MG (LODINE) CAP PO SCH ×2 (08:23→17:10)
[2021-03-26] MEDS: DULoxetine 30 MG (CYMBALTA) CAP PO SCH (08:23)
[2021-03-26] MEDS: ENOXAPARIN 40 MG/0.4 ML (LOVENOX) SYR SC SCH (08:23)
[2021-03-26] MEDS: CEPHALEXIN 250 MG (KEFLEX) CAP PO SCH ×4 (08:23→20:04)
[2021-03-26] MEDS: ACETAMINOPHEN 500 MG TAB (TYLENOL) PO SCH ×2 (08:24→20:06)
[2021-03-26] MEDS: lisINopril 20 MG (PRINIVIL) TABLET PO SCH (08:24)
[2021-03-26] MEDS: HYDROcodone/APAP 7.5 MG/325 MG (LORTAB, LORCET PLUS) TABLET PO PRN ×3 (09:48→20:05)
--- NOTE | 2021-03-26 09:56 | Physical Therapy Daily Note ---
PT Daily Note-Current Subjective Patient in restroom pre tx, getting done with shower with OT, has 7/10 pain in right hip, nurse brings pain meds during tx. Will be co-treating with OT due to poor patient mobility, strength, endurance, coordinate UE and LE with activity, safety and reduce risk of falls. Appearance Patient in WC post tx with OT to continue ADL's Mental Status Patient Orientation: Person, Place, Situation Transfers SCALE: Activities may be completed with or without assistive devices. 1-Mzsfksmlhd-kmnjguv completes the activity by him/herself with no assistance from a helper. 5-Set-up or Clean-up Assistance-helper sets up or cleans up; patient completes activity. [place] assists only prior to or following the activity. 4-Supervision or Touching Assistance-helper provides verbal cues and/or touching/steadying and/or contact guard assistance as patient completes activity . Assistance may be provided throughout the activity or intermittently. 3-Partial/Moderate Assistance-helper does LESS THAN HALF the effort. [place] lifts, holds or supports trunk or limbs, but provides less than half the effort. 2-Substantial/Maximal Assistance-helper does MORE THAN HALF the effort. [place] lifts or holds trunk or limbs and provides more than half the effort. 8-Gxtyyzqru-fznkyg does ALL the effort. Patient does none of the effort to complete the activity. Or, the assistance of 2 or more helpers is required for the patient to complete the activity. If activity was not attempted, code reason: 7-Patient Refused. 9-Not Applicable-not attempted and the patient did not perform the activity before the current illness, exacerbation or injury. 10-Not Attempted due to Environmental Limitations-(lack of equipment, weather restraints, etc.). 88-Not Attempted due to Medical Conditions or Safety Concerns. Sit to Stand (QC): 1 Chair/Kgs-os-Epgpg Xfer(QC): 4 Patient transfers from to shower bench with CGA, showers, dries off and dresses part way, transfers to (sliding transfer without sliding board) with CGA, wheels to bed, transfers to bed same way, finishes dressing, transfers back to and propels into the hallway. Patient attempts to stand x4 to get the sling on (for the ceiling gait track system) and he does so (assist of 2 to stand), he stands a few times and gets the sling on but is never able to stand long enough to start walker. He is worn out from standing to get the sling on. Weight Bearing Right Lower Extremity: Right Touch Toe Bearing Left Lower Extremity: Left Full Weight Bearing Left and Right LE's demonstrates strength deficit from previous C5-T1 SCI Treatments PT performed transfers, standing, WC mobility, positioning and safety during shower and dressing, OT performed shower and dressing, assist with standing to get sling on, UE positioning and safety during activity. Assessment Current Status: Poor Progress No ambulation today, will attempt in parallel bars next time PT Short Term Goals Short Term Goals Time Frame: Apr 05, 2021 Roll Left & Right: 6 Sit to lyin Lying to sitting on side of be: 5 Sit to stand: 3 Chair/wpt-mu-kwkbl transfer: 3 Toilet transfer: 3 Car transfer: 3 Walk 10 feet: 2 Walk 50 feet with two turns: 88 Walk 150 feet: 88 Walking 10ft on uneven surface: 88 1 step (curb): 88 4 steps: 88 12 steps: 88 Picking up objects: 2 Does pt use a wc or scooter: Yes Wheel 50ft w/2 turns: 5 Wheel 150 feet: 5 Type: Manual PT Prison Goals Senior Technical Business Analyst Goals PT Senior Technical Business Analyst Goals Time Frame: May 03, 2021 Roll Left & Right (QC): 6 Sit to Lying (QC): 6 Lying-Sitting on Side/Bed(QC): 6 Sit to Stand (QC): 5 Chair/Ing-sg-Sdanj Xfer(QC): 4 Toilet Transfer (QC): 4 Car Transfer (QC): 4 Does the Patient Walk: Yes Walk 10 feet (QC): 4 Walk 50ft with 2 Turns (QC): 3 Walk 150 ft (QC): 3 Walking 10ft on Uneven Surface: 3 1 Step (curb) (QC): 88 4 Steps (QC): 88 12 Steps (QC): 88 Picking up an Object (QC): 4 Does the Pt use WC or Scooter?: Yes Wheel 50 feet with 2 turns (QC: 6 Type: Manual Wheel 150 feet: 6 Type: Manual PT Plan Problem List Problem List: Activity Tolerance, Functional Strength, Safety, Balance, Gait, Transfer, Bed Mobility, ROM Treatment/Plan Treatment Plan: Continue Plan of Care Treatment Plan: Bed Mobility, Education, Functional Activity [place], Functional Strength, Group Therapy, Gait, Safety, Therapeutic Exercise, Transfers Treatment Duration: May 11, 2021 Frequency: At least 5 of 7 days/Wk (IRF) Estimated Hrs Per Day: 1.5 hours per day Patient and/or Family Agrees t: Yes Safety Risks/Education Patient Education: Transfer Techniques, Reviewed Precautions, Correct Positioning, W/C Management, Safety Issues Teaching Recipient: Patient Teaching Methods: Demonstration, Discussion Response to Teaching: Reinforcement Needed Time/GCodes Time In: 0900 Time Out: 1000 Total Billed Treatment Time: 60 Total Billed Treatment 1 visit FA 60' LIVIER NEVAREZ PT Mar 26, 2021 09:56
--- NOTE | 2021-03-26 10:14 | Occupational Ther Daily Note ---
OT Current Status-Daily Note Subjective Pt up in w/c, agreeable to therapy tx. Pt states he needs to work on getting his hips limbered up more in the morning as they are stiff. Rates pain 7/10 in his hips, nurse provided pain medication Mental Status/Objective Patient Orientation: Person, Place, Time, Situation ADL-Treatment Therapy Code Descriptions/Definitions Functional [place] Measure: 0=Not Assessed/NA 4=Minimal Assistance 1=Total Assistance 5=Supervision or Setup 2=Maximal Assistance 6=Modified [place] 3=Moderate Assistance 7=Complete IndependenceSCALE: Activities may be completed with or without assistive devices. 8-Pdenebnfxt-mfpjsyv completes the activity by him/herself with no assistance from a helper. 5-Set-up or Clean-up Assistance-helper sets up or cleans up; patient completes activity. [place] assists only prior to or following the activity. 4-Supervision or Touching Assistance-helper provides verbal cues and/or touching/steadying and/or contact guard assistance as patient completes activity. Assistance may be provided throughout the activity or intermittently. 3-Partial/Moderate Assistance-helper does LESS THAN HALF the effort. [place] lifts, holds or supports trunk or limbs, but provides less than half the effort. 2-Substantial/Maximal Assistance-helper does MORE THAN HALF the effort. [place] lifts or holds trunk or limbs and provides more than half the effort. 8-Ntgtxrxfi-idcdnz does ALL the effort. Patient does none of the effort to complete the activity. Or, the assistance of 2 or more helpers is required for the patient to complete the activity. If activity was not attempted, code reason: 7-Patient Refused. 9-Not Applicable-not attempted and the patient did not perform the activity before the current illness, exacerbation or injury. 10-Not Attempted due to Environmental Limitations-(lack of equipment, weather restraints, etc.). 88-Not Attempted due to Medical Conditions or Safety Concerns. Eating (QC): 6 (IND) Oral Hygiene (QC): 6 (IND) Shower/Bathe Self (QC): 5 (set up seated on SC) Upper Body Dressing (QC): 5 (set up with focus puller shirt.) Lower Body Dressing (QC): 4 (pt able to thread BLEs with increased time. SBA transfer from w/c to EOB (scooting between surfaces on buttocks), he was then able to perform pant hike) On/Off Footwear: 5 (set up with aspen hose and shoes.) Other Treatment [id number]: OT/PT cotreat due to skill of 2 clinicians required that a rehabilitation specialist could not perform in order to coordinate UE/LEs, decrease fall risk, and due to pt's limitations in transfers/mobility, impulsivity, and strength. OT focused on UE placement, UE placement, cues for sequencing and safety. PT focused on LE placement, gross overall movement, and transfers/mobility. Pt transferred to SC, completed shower and dressing seated. He transferred to w/c, then to EOB (no SB, scooting between surfaces on his buttocks), CGA. Pt managed pants up at bed level, then transferred back to w/c. Pt attempted to stand x4 to get sling on for ceiling gait track system, requires assist x2 to stand. Pt stands a few times to get sling on but never ab le to stand long enough to start walker. Pt states he is worn out. [id number] OT Tx: Pt propelled w/c to bathroom, completed shaving at sink with electric razor, IND. Pt propelled w/c to therapy gym. OT tx with focus on increasing BUE strength and activity tolerance. Pt completed x15 mins on arm bike, 25 watt resistance, 1 rest break. He then completed nut/bolt block task x2 with 2 lb wrist weights BUEs. Pt propelled back to his room. Post tx, pt in w/c, call light in reach and all needs met. Education OT Patient Education: Correct positioning, Modified ADL techniques, Progress toward Goal/Update tx plan, Purpose of tx/functional activities Teaching Recipient: Patient Teaching Methods: Discussion Response to Teaching: Verbalize Understanding OT Short Term Goals Short Term Goals Time Frame: Mar 29, 2021 Toileting hygiene: 3 Shower/bathe self: 3 Lower body dressin Putting on/taking off footwear: 3 OT Snf Goals Color Expert Goals Time Frame: Apr 13, 2021 Eating (QC): 6 Oral Hygiene (QC): 6 Toileting Hygiene (QC): 4 Shower/Bathe Self (QC): 4 Upper Body Dressing (QC): 5 Lower Body Dressing (QC): 4 On/Off Footwear (QC): 5 Additional Goals: 1-Demonstrate ADL Tasks, 2-Verbalize Understanding, 3- ImproveStrength/Debo 1=Demonstrate adherence to instructed precautions during ADL tasks. 2=Patient will verbalize/demonstrate understanding of assistive devices/modifications for ADL. 3=Patient will improve strength/tolerance for activity to enable patient to perform ADL's. OT Education/Plan Problem List/Assessment Assessment: Decreased Activ Tolerance, Decreased UE Strength, Impaired Funct Balance, Impaired I ADL's, Impaired Self-Care Skills Discharge Recommendations Plan/Recommendations: Continue POC Treatment Plan/Plan of Care Patient would benefit from OT for education, treatment and training to promote independence in ADL's, mobility, safety and/or upper extremity function for ADL's. Plan of Care: ADL Retraining, Functional Mobility, Group Exercise/Act as Ind, UE Funct Exercise/Act Treatment Duration: Apr 13, 2021 Frequency: At least 5 of 7 days/Wk (IRF) Estimated Hrs Per Day: 1.5 hours per day Agreement: Yes Rehab Potential: Fair Time/GCodes Start Time: 09:00 Stop Time: 10:30 Total Time Billed (hr/min): 90 Billed Treatment Time cotreat x60, OT tx x30' 1, ADL 3 (45'), EX (15'), FA 2 (30') SOURAV TALBOT OT Mar 26, 2021 10:14
--- NOTE | 2021-03-26 13:55 | Physical Therapy Daily Note ---
PT Daily Note-Current Subjective Patient in WC pre tx, agrees to PT, has 8/10 pain in right hip, nurse notified. Appearance Patient in room in WC at bedside post tx with nurse call, phone, tray, all needs met. Mental Status Patient Orientation: Person, Place, Situation Transfers SCALE: Activities may be completed with or without assistive devices. 9-Xsilmavmia-yviwunk completes the activity by him/herself with no assistance from a helper. 5-Set-up or Clean-up Assistance-helper sets up or cleans up; patient completes activity. [place] assists only prior to or following the activity. 4-Supervision or Touching Assistance-helper provides verbal cues and/or touching/steadying and/or contact guard assistance as patient completes activity. Assistance may be provided throughout the activity or intermittently. 3-Partial/Moderate Assistance-helper does LESS THAN HALF the effort. [place] lifts, holds or supports trunk or limbs, but provides less than half the effort. 2-Substantial/Maximal Assistance-helper does MORE THAN HALF the effort. [place] lifts or holds trunk or limbs and provides more than half the effort. 1-Howxozdhc-ldcadv does ALL the effort. Patient does none of the effort to complete the activity. Or, the assistance of 2 or more helpers is required for the patient to complete the activity. If activity was not attempted, code reason: 7-Patient Refused. 9-Not Applicable-not attempted and the patient did not perform the activity before the current illness, exacerbation or injury. 10-Not Attempted due to Environmental Limitations-(lack of equipment, weather restraints, etc.). 88-Not Attempted due to Medical Conditions or Safety Concerns. Chair/Fqg-yo-Dtmvm Xfer(QC): 4 Patient performed a sliding transfer to Step and back with CGA, needs some cues for safety and positioning Weight Bearing Right Lower Extremity: Right Touch Toe Bearing Left Lower Extremity: Left Full Weight Bearing Left and Right LE's demonstrates strength deficit from previous C5-T1 SCI Wheelchair Training Wheel 50 ft with 2 turns (QC): 4 Type of Wheelchair: Manual 120'x2 Exercises NuStep Minutes: 15 NuStep Workload: 1 (no resistance so he doesn't violate TTWB on the right leg) Treatments ROM, transfers, WC mobility Assessment Current Status: Fair Progress improving transfers PT Short Term Goals Short Term Goals Time Frame: Apr 05, 2021 Roll Left & Right: 6 Sit to lyin Lying to sitting on side of be: 5 Sit to stand: 3 Chair/ffx-dg-nyyjs transfer: 3 Toilet transfer: 3 Car transfer: 3 Walk 10 feet: 2 Walk 50 feet with two turns: 88 Walk 150 feet: 88 Walking 10ft on uneven surface: 88 1 step (curb): 88 4 steps: 88 12 steps: 88 Picking up objects: 2 Does pt use a wc or scooter: Yes Wheel 50ft w/2 turns: 5 Wheel 150 feet: 5 Type: Manual PT Fci Goals Fci Goals PT Fci Goals Time Frame: May 03, 2021 Roll Left & Right (QC): 6 Sit to Lying (QC): 6 Lying-Sitting on Side/Bed(QC): 6 Sit to Stand (QC): 5 Chair/Zyv-rm-Svxzv Xfer(QC): 4 Toilet Transfer (QC): 4 Car Transfer (QC): 4 Does the Patient Walk: Yes Walk 10 feet (QC): 4 Walk 50ft with 2 Turns (QC): 3 Walk 150 ft (QC): 3 Walking 10ft on Uneven Surface: 3 1 Step (curb) (QC): 88 4 Steps (QC): 88 12 Steps (QC): 88 Picking up an Object (QC): 4 Does the Pt use WC or Scooter?: Yes Wheel 50 feet with 2 turns (QC: 6 Type: Manual Wheel 150 feet: 6 Type: Manual PT Plan Problem List Problem List: Activity Tolerance, Functional Strength, Safety, Balance, Gait, Transfer, Bed Mobility, ROM Treatment/Plan Treatment Plan: Continue Plan of Care Treatment Plan: Bed Mobility, Education, Functional Activity Debo, Functional Strength, Group Therapy, Gait, Safety, Therapeutic Exercise, Transfers Treatment Duration: May 11, 2021 Frequency: At least 5 of 7 days/Wk (IRF) Estimated Hrs Per Day: 1.5 hours per day Patient and/or Family Agrees t: Yes Safety Risks/Education Patient Education: Transfer Techniques, Reviewed Precautions, Correct Positio hermes, W/C Management, Safety Issues Teaching Recipient: Patient Teaching Methods: Demonstration, Discussion Response to Teaching: Reinforcement Needed Time/GCodes Time In: 1330 Time Out: 1400 Total Billed Treatment Time: 30 Total Billed Treatment 1 visit EX 15' FA 15' LIVIER NEVAREZ PT Mar 26, 2021 13:55
[2021-03-26 19:50] VITALS: BP 107/68
[2021-03-26] MEDS: TOLTERODINE LA 4 MG (DETROL) CAP PO SCH (20:04)
[2021-03-26] MEDS: BACLOFEN 10 MG (LIORESAL) TAB PO PRN (20:05)
[2021-03-27] MEDS: HYDROcodone/APAP 7.5 MG/325 MG (LORTAB, LORCET PLUS) TABLET PO PRN ×3 (06:57→18:12)
[2021-03-27] MEDS: ETODOLAC 300 MG (LODINE) CAP PO SCH ×2 (07:56→17:29)
[2021-03-27] MEDS: lisINopril 20 MG (PRINIVIL) TABLET PO SCH (07:56)
[2021-03-27] MEDS: ACETAMINOPHEN 500 MG TAB (TYLENOL) PO SCH ×2 (07:56→20:27)
[2021-03-27] MEDS: CEPHALEXIN 250 MG (KEFLEX) CAP PO SCH ×4 (07:56→20:27)
[2021-03-27 07:57] VITALS: BP 148/74
[2021-03-27] MEDS: ENOXAPARIN 40 MG/0.4 ML (LOVENOX) SYR SC SCH (07:57)
[2021-03-27] MEDS: DULoxetine 30 MG (CYMBALTA) CAP PO SCH (07:57)
[2021-03-27] MEDS: FERROUS SULF 325 MG (IRON) TAB PO SCH (08:31)
--- NOTE | 2021-03-27 08:53 | PM&R Progress Note ---
Subjective HPI/CC On Admission Date Seen by Provider: Mar 27, 2021 Time Seen by Provider: 08:50 Subjective/Events-last exam 03/27/2021: Pt doing well Dressing changes maintained Keflex tolerated Needs a slide board to go home 03/26/2021: Pt doing well Dr. Guy is very pleased with his results from [facility] No incontinence Trial of no pain medication today Bowels are moving 03/25/21: Patient has no new issues BM+ No falls Improved transfers 03/24/21: Patient doing well Pain controlled Incision looks good BM+ 03/23/21: No issues reported Pain controlled Moving around well [place] appear to be reddened so will place on Keflex 03/22/2021: Patient doing well [place] are a bit irritated Bowels are moving well Appointment Friday with orthopedics then will return for a few more days of therapy 03/21/21: Pt doing really well Has an appointment next week so will DC him so he can go to his ortho appointment Able to use a wheel chair and slide board since he is used to that since 1965 from a cervical spine injury 03/20/2021: Pt doing really well No major issues Checked meds and labs Detrol LA really helping him Pain is controlled Participating in therapy 03/19/2021: Patient doing well Urology will see him on Friday Detrol LA ordered Bowels are moving 03/18/2021: Patient doing well Incontinence noted with bladder spasms so open to see urology Bowels are moving Incision looks good Baclofen is helped 03/17/2021: Patient doing very well Bowels are moving well Using slide board very well Lortab helps the pain Started baclofen to take at night for spasms 03/16/2021: Patient doing really well Took a shower today Refused laxatives due to loose stools Pain pills are managing the pain Participating in therapy Hemoglobin 7.8 will check iron level Review of Systems General: Fatigue, Malaise Musculoskeletal: leg pain Objective Exam Vital Signs Vital Signs Date Time Temp Pulse Resp B/P (MAP) Pulse Ox O2 Delivery O2 Flow Rate FiO2 03/27/21 21:19 Room Air 03/27/21 20:22 36.2 71 20 104/64 (77) 97 Capillary Refill : General Appearance: No Apparent Distress, WD/WN, Chronically ill HEENT: PERRL/EOMI, Normal ENT Inspection, Pharynx Normal Neck: Full Range of Motion, Normal Inspection, Non Tender, Supple, Carotid Bruit Respiratory: Chest Non Tender, Lungs Clear, Normal Breath Sounds, No Accessory Muscle Use, No Respiratory Distress Cardiovascular: Regular Rate, Rhythm, No Edema, No Gallop, No JVD, No Murmur, Normal Peripheral Pulses Gastrointestinal: Normal Bowel Sounds, No Organomegaly, No Pulsatile Mass, Non Tender, Soft Back: Normal Inspection, No CVA Tenderness, No Vertebral Tenderness Extremity: Normal Capillary Refill, Normal Inspection, Normal Range of Motion, Non Tender, No Calf Tenderness, No Pedal Edema Neurologic/Psychiatric: Alert, Oriented x3, Normal Mood/Affect, Abnormal Gait, Motor Weakness (Chronic left-sided weakness and minimal weightbearing on right) Skin: Normal Color, Warm/Dry Lymphatic: No Adenopathy Results/Procedures Lab Patient resulted labs reviewed. FIM Transfers Therapy Code Descriptions/Definitions Functional [place] Measure: 0=Not Assessed/NA 4=Minimal Assistance 1=Total Assistance 5=Supervision or Setup 2=Maximal Assistance 6=Modified [place] 3=Moderate Assistance 7=Complete IndependenceSCALE: Activities may be completed with or without assistive devices. 3-Bnmnbmbmdp-fmkarwn completes the activity by him/herself with no assistance from a helper. 5-Set-up or Clean-up Assistance-helper sets up or cleans up; patient completes activity. [place] assists only prior to or following the activity. 4-Supervision or Touching Assistance-helper provides verbal cues and/or touching/steadying and/or contact guard assistance as patient completes activity. Assistance may be provided throughout the activity or intermittently. 3-Partial/Moderate Assistance-helper does LESS THAN HALF the effort. [place] lifts, holds or supports trunk or limbs, but provides less than half the effort. 2-Substantial/Maximal Assistance-helper does MORE THAN HALF the effort. [place] lifts or holds trunk or limbs and provides more than half the effort. 7-Aztzteelj-bpdotd does ALL the effort. Patient does none of the effort to complete the activity. Or, the assistance of 2 or more helpers is required for the patient to complete the activity. If activity was not attempted, code reason: 7-Patient Refused. 9-Not Applicable-not attempted and the patient did not perform the activity before the current illness, exacerbation or injury. 10-Not Attempted due to Environmental Limitations-(lack of equipment, weather restraints, etc.). 88-Not Attempted due to Medical Conditions or Safety Concerns. Roll Left to Right (QC): 5 Sit to Lying (QC): 5 Sit to Stand (QC): 1 Chair/Pgi-ht-Zzhik Xfer(QC): 4 Car Transfer (QC): 88 Gait Training Does the Patient Walk?: Yes Distance: 6' x6 Walk 10 feet (QC): 4 Walk 50 ft with 2 Turns(QC): 88 Walk 150 ft (QC): 88 Walking 10ft/uneven surface-QC: 88 Gait Persons Needed: 1 Gait Assistive Device: Parallel Bars Wheelchair Training Does the Pt Use a Wheelchair?: Yes Distance: 10 Wheel 50 ft with 2 turns (QC): 4 Wheel 150 ft (QC): 6 Type of Wheelchair: Manual Stair Training 1 Step (curb) (QC): 88 4 Steps (QC): 88 12 Steps (QC): 88 Balance Picking up an Object (QC): 88 ADL-Treatment Eating (QC): 6 (IND) Oral Hygiene (QC): 6 (IND) Shower/Bathe Self (QC): 5 (set up seated on SC) Upper Body Dressing (QC): 5 (set up with stock puller shirt.) Lower Body Dressing (QC): 4 (pt able to thread BLEs with increased time. SBA transfer from w/c to EOB (scooting between surfaces on buttocks), he was then able to perform pant hike) On/Off Footwear (QC): 5 (set up with aspen hose and shoes.) Toileting Hygiene (QC): 1 (Assist x2 in stand for pant hike. ) Toilet Transfer (QC): 4 (SBA from BSC to w/c using SB.) Assessment/Plan Assessment and Plan Assess & Plan/Chief Complaint Assessment: Status post right hip fracture repair Oral tobacco use Alcohol use Hypertension Neurogenic bladder Cervical spine injury 1996 Anemia Neurogenic bladder dose self caths at home Early cellulitis staple line placed on Keflex 03/23/21 Plan: DVT prophylaxis Supportive care Bowel regimen 03/16/2021: Check iron level Participation in therapy Pain control 03/17/2021: Supportive care Aggressive rehab 03/18/2021: Urology follow-up Baclofen at night 03/19/2021: None appreciate urology Detrol [facility] started 03/20/2021: Doing well with therapy Monitor closely 03/21/21: Pain control Detrol [facility] Baclofen DC next week 03/22/2021: Pain control Appreciate Dr. Guy 03/23/21: Keflex 03/24/21: BM regimen Pain control 03/25/21: Continue pain management 03/26/2021: Keflex Ortho appointment Friday03/27/2021: Supportive care Pain control (1) Intertrochanteric fracture Status: Acute CHENG FARIAS DO Mar 27, 2021 08:53
--- NOTE | 2021-03-27 09:56 | Physical Therapy Daily Note ---
PT Daily Note-Current Subjective Pt in bed upon arrival and agrees to tx. Partial co-treat d/t pt poor mobility, weakness, impulsiveness, and safety. Pt has no c/o pain at this time. Mental Status Patient Orientation: Person, Place, Time, Situation Transfers SCALE: Activities may be completed with or without assistive devices. 6-Mcwjcyiifq-qwjnhcd completes the activity by him/herself with no assistance from a helper. 5-Set-up or Clean-up Assistance-helper sets up or cleans up; patient completes activity. [place] assists only prior to or following the activity. 4-Supervision or Touching Assistance-helper provides verbal cues and/or touching/steadying and/or contact guard assistance as patient completes activity. Assistance may be provided throughout the activity or intermittently. 3-Partial/Moderate Assistance-helper does LESS THAN HALF the effort. [place] lifts, holds or supports trunk or limbs, but provides less than half the effort. 2-Substantial/Maximal Assistance-helper does MORE THAN HALF the effort. [place] lifts or holds trunk or limbs and provides more than half the effort. 5-Acteiylud-bpbuof does ALL the effort. Patient does none of the effort to complete the activity. Or, the assistance of 2 or more helpers is required for the patient to complete the activity. If activity was not attempted, code reason: 7-Patient Refused. 9-Not Applicable-not attempted and the patient did not perform the activity before the current illness, exacerbation or injury. 10-Not Attempted due to Environmental Limitations-(lack of equipment, weather restraints, etc.). 88-Not Attempted due to Medical Conditions or Safety Concerns. Sit to Stand (QC): 3 Chair/Ukj-ky-Ossgr Xfer(QC): 5 Pt slide TF to/from bed w/o SB Weight Bearing Right Lower Extremity: Right Touch Toe Bearing Left Lower Extremity: Left Full Weight Bearing Left and Right LE's demonstrates strength deficit from previous C5-T1 SCI Gait Training Does the Patient Walk?: Yes Distance: 6' x3 Gait Persons Needed: 2 Gait Assistive Device: Parallel Bars Pt very unsteady with gait, Mihai and WC follow in // bars Wheelchair Training Does the Pt Use a Wheelchair?: Yes Wheel 50 ft with 2 turns (QC): 6 Wheel 150 ft (QC): 6 Type of Wheelchair: Manual Treatments -915: Pt in bed, gets dressed set-up A, then transfers SBA to . Pt propels WC to laundry room to put clothes in washer. Pt then propels WC to therapy gym, OT enters tx at this time. 915-10 (Co-treat): OT focused on UE strengthening, UE coordination, and functional mobility. PT focused on transfers, gait, and mobility. Pt propels WC to elevators, goes to garden on first floor to descend/ascend ramp x2. VC for hand placement. Pt then propels WC back to elevators and returns to second floor. Pt enters // bars, sit to stand with Mihai, leans torso to L side on bar to stand upright and amb 6'. Pt has rest break and sit to stand x2 and amb 6' x2. Pt returns to , remains in gym with OT with all needs met. PT exits tx. Assessment Current Status: Fair Progress Pt requires frequent rest breaks during tx. Pt very unsteady with sit <> stand transfers. Max VC to keep pt on task throughout tx PT Short Term Goals Short Term Goals Time Frame: Apr 05, 2021 Roll Left & Right: 6 Sit to lyin Lying to sitting on side of be: 5 Sit to stand: 3 Chair/xmf-gw-mwxux transfer: 3 Toilet transfer: 3 Car transfer: 3 Walk 10 feet: 2 Walk 50 feet with two turns: 88 Walk 150 feet: 88 Walking 10ft on uneven surface: 88 1 step (curb): 88 4 steps: 88 12 steps: 88 Picking up objects: 2 Does pt use a wc or scooter: Yes Wheel 50ft w/2 turns: 5 Wheel 150 feet: 5 Type: Manual PT [employer] Floor Runner Goals Nursing Home Goals PT Nursing Home Goals Time Frame: May 03, 2021 Roll Left & Right (QC): 6 Sit to Lying (QC): 6 Lying-Sitting on Side/Bed(QC): 6 Sit to Stand (QC): 5 Chair/Ukk-mf-Ejcdr Xfer(QC): 4 Toilet Transfer (QC): 4 Car Transfer (QC): 4 Does the Patient Walk: Yes Walk 10 feet (QC): 4 Walk 50ft with 2 Turns (QC): 3 Walk 150 ft (QC): 3 Walking 10ft on Uneven Surface: 3 1 Step (curb) (QC): 88 4 Steps (QC): 88 12 Steps (QC): 88 Picking up an Object (QC): 4 Does the Pt use WC or Scooter?: Yes Wheel 50 feet with 2 turns (QC: 6 Type: Manual Wheel 150 feet: 6 Type: Manual PT Plan Problem List Problem List: Activity Tolerance, Functional Strength, Safety Treatment/Plan Treatment Plan: Continue Plan of Care Treatment Plan: Bed Mobility, Education, Functional Activity Debo, Functional Strength, Group Therapy, Gait, Safety, Therapeutic Exercise, Transfers Treatment Duration: May 11, 2021 Frequency: At least 5 of 7 days/Wk (IRF) Estimated Hrs Per Day: 1.5 hours per day Patient and/or Family Agrees t: Yes Safety Risks/Education Patient Education: Gait Training, Correct Positioning, W/C Management Teaching Recipient: Patient Teaching Methods: Discussion Response to Teaching: Verbalize Understanding Time/GCodes Time In: 900 Time Out: 1000 Total Billed Treatment Time: 60 Total Billed Treatment 1, FA x3, GT MOIRA [place] IOS ARCHITECT Mar 27, 2021 09:56
--- NOTE | 2021-03-27 10:02 | Occupational Ther Daily Note ---
OT Current Status-Daily Note Subjective Pt in w/c with PT, agreeable to therapy session. Rates pain 5/10 in R hip/knee. Mental Status/Objective Patient Orientation: Person, Place, Time, Situation ADL-Treatment Therapy Code Descriptions/Definitions Functional [place] Measure: 0=Not Assessed/NA 4=Minimal Assistance 1=Total Assistance 5=Supervision or Setup 2=Maximal Assistance 6=Modified [place] 3=Moderate Assistance 7=Complete IndependenceSCALE: Activities may be completed with or without assistive devices. 2-Jvldwlkife-qbwnnvj completes the activity by him/herself with no assistance from a helper. 5-Set-up or Clean-up Assistance-helper sets up or cleans up; patient completes activity. [place] assists only prior to or following the activity. 4-Supervision or Touching Assistance-helper provides verbal cues and/or touchin g/steadying and/or contact guard assistance as patient completes activity. Assistance may be provided throughout the activity or intermittently. 3-Partial/Moderate Assistance-helper does LESS THAN HALF the effort. [place] lifts, holds or supports trunk or limbs, but provides less than half the effort. 2-Substantial/Maximal Assistance-helper does MORE THAN HALF the effort. [place] lifts or holds trunk or limbs and provides more than half the effort. 1-Kcjrirgxc-jnnxhp does ALL the effort. Patient does none of the effort to complete the activity. Or, the assistance of 2 or more helpers is required for the patient to complete the activity. If activity was not attempted, code reason: 7-Patient Refused. 9-Not Applicable-not attempted and the patient did not perform the activity before the current illness, exacerbation or injury. 10-Not Attempted due to Environmental Limitations-(lack of equipment, weather restraints, etc.). 88-Not Attempted due to Medical Conditions or Safety Concerns. Other Treatment [id number]: OT/PT cotreat due to skill of 2 clinicians required that a director of rehabilitation and wellness could not perform in order to coordinate UE/LEs, decrease fall risk, and due to pt's limitations in transfers/mobility, impulsivity, and strength. OT focused on UE placement, UE placement, cues for sequencing and safety. PT focused on LE placement, gross overall movement, and transfers/mobility. Pt performed functional mobility at w/c level to simulate community mobility. [facility], going over uneven surfaces, up/down ramps, and over thresholds. Pt returned to 2nd floor, ambulated x3 in parallel bars x6'. 0926-1109: Pt used w/c to laundry area, transferred laundry from washer to dipper and drier with minimal cues due to being unfamiliar with hospital equipment. Pt returned to gym. In order to increase BUE strength and activity tolerance, pt completed arm bike x35 Watt resistance x15 mins. Pt then placed/removed, x100 pegs with 2lb wrist weights BUEs, alternating hands. Pt completed functional table top activity, 2 lb wrist weights BUEs, picking up and placing plastic coins into slots. Pt wheeled back to his room. Post tx, pt up in w/c, call light in reach and all needs met. Education OT Patient Education: Correct positioning, Energy conservation, Exercise program, Modified ADL techniques, Progress toward Goal/Update tx plan, Purpose of tx/functional activities, Rehab process Teaching Recipient: Patient Teaching Methods: Discussion Response to Teaching: Verbalize Understanding OT Short Term Goals Short Term Goals Time Frame: Mar 29, 2021 Toileting hygiene: 3 Shower/bathe self: 3 Lower body dressin Putting on/taking off footwear: 3 OT Station Engineer Main Line Goals Station Engineer Main Line Goals Time Frame: Apr 13, 2021 Eating (QC): 6 Oral Hygiene (QC): 6 Toileting Hygiene (QC): 4 Shower/Bathe Self (QC): 4 Upper Body Dressing (QC): 5 Lower Body Dressing (QC): 4 On/Off Footwear (QC): 5 Additional Goals: 1-Demonstrate ADL Tasks, 2-Verbalize Understanding, 3-Improv eStrength/Debo 1=Demonstrate adherence to instructed precautions during ADL tasks. 2=Patient will verbalize/demonstrate understanding of assistive devices/modifications for ADL. 3=Patient will improve strength/tolerance for activity to enable patient to p erform ADL's. OT Education/Plan Problem List/Assessment Assessment: Decreased Activ Tolerance, Decreased UE Strength, Impaired Funct Balance, Impaired I ADL's, Impaired Self-Care Skills Discharge Recommendations Plan/Recommendations: Continue POC Treatment Plan/Plan of Care Patient would benefit from OT for education, treatment and training to promote independence in ADL's, mobility, safety and/or upper extremity function for ADL's. Plan of Care: ADL Retraining, Functional Mobility, Group Exercise/Act as Ind, U E Funct Exercise/Act Treatment Duration: Apr 13, 2021 Frequency: At least 5 of 7 days/Wk (IRF) Estimated Hrs Per Day: 1.5 hours per day Agreement: Yes Rehab Potential: Fair Time/GCodes Start Time: 09:15 Stop Time: 10:45 Total Time Billed (hr/min): 90 Billed Treatment Time 3700-7002 OT/PT cotreat, 0981-7158 OT tx. 1, FA 5 (75'), EX (15'), SOURAV TALBOT OT Mar 27, 2021 10:02
--- NOTE | 2021-03-27 14:09 | Physical Therapy Daily Note ---
PT Daily Note-Current Subjective Pt in WC upon arrival and agrees to tx. Pt has no c/o pain at start of tx, states soreness in B hips post tx. Mental Status Patient Orientation: Person, Place, Time, Situation Transfers SCALE: Activities may be completed with or without assistive devices. 5-Ctnjhzvsyv-slilrau completes the activity by him/herself with no assistance from a helper. 5-Set-up or Clean-up Assistance-helper sets up or cleans up; patient completes activity. [place] assists only prior to or following the activity. 4-Supervision or Touching Assistance-helper provides verbal cues and/or touching/steadying and/or contact guard assistance as patient completes activity. Assistance may be provided throughout the activity or intermittently. 3-Partial/Moderate Assistance-helper does LESS THAN HALF the effort. [place] lifts, holds or supports trunk or limbs, but provides less than half the effort. 2-Substantial/Maximal Assistance-helper does MORE THAN HALF the effort. [place] lifts or holds trunk or limbs and provides more than half the effort. 9-Wahrcbgwb-krhxaw does ALL the effort. Patient does none of the effort to complete the activity. Or, the assistance of 2 or more helpers is required for the patient to complete the activity. If activity was not attempted, code reason: 7-Patient Refused. 9-Not Applicable-not attempted and the patient did not perform the activity before the current illness, exacerbation or injury. 10-Not Attempted due to Environmental Limitations-(lack of equipment, weather restraints, etc.). 88-Not Attempted due to Medical Conditions or Safety Concerns. Sit to Stand (QC): 3 Min/ModA sit <> stand dependent on fatigue Weight Bearing Right Lower Extremity: Right Touch Toe Bearing Left Lower Extremity: Left Full Weight Bearing Left and Right LE's demonstrates strength deficit from previous C5-T1 SCI Wheelchair Training Does the Pt Use a Wheelchair?: Yes Wheel 50 ft with 2 turns (QC): 6 Wheel 150 ft (QC): 6 Type of Wheelchair: Manual Exercises Seated Therapy Exercises: Sit to stand Seated Reps: 5 NuStep Minutes: 15 NuStep Workload: 1 (No resistance to keep TTWB precautions) Treatments Pt propels WC to therapy gym, slide transfers to NuStep w/o use of SB Mihai. Pt completes NuStep for 15 mins on WL of 1 to keep TTWB precautions. Pt then slide transfers back to WC CGA and propels self back to room. Pt completes sit <> stand x5, pushing up from WC with one UE and pulling up from sink/counter with other as pt states this is what he does at home. Pt requires Min/ModA dependent on fatigue during sit <> stand transfers. Pt remains in WC with all needs met and call light in hand. Assessment Current Status: Fair Progress Pt requires frequent rest breaks during tx d/t fatigue. Pt increasing strength, ROM, and mobility PT Short Term Goals Short Term Goals Time Frame: Apr 05, 2021 Roll Left & Right: 6 Sit to lyin Lying to sitting on side of be: 5 Sit to stand: 3 Chair/ylq-lv-whckf transfer: 3 Toilet transfer: 3 Car transfer: 3 Walk 10 feet: 2 Walk 50 feet with two turns: 88 Walk 150 feet: 88 Walking 10ft on uneven surface: 88 1 step (curb): 88 4 steps: 88 12 steps: 88 Picking up objects: 2 Does pt use a wc or scooter: Yes Wheel 50ft w/2 turns: 5 Wheel 150 feet: 5 Type: Manual PT Senior Living Goals Senior Living Goals PT Commodity Industry Analyst Goals Time Frame: May 03, 2021 Roll Left & Right (QC): 6 Sit to Lying (QC): 6 Lying-Sitting on Side/Bed(QC): 6 Sit to Stand (QC): 5 Chair/Eul-zv-Aqzbd Xfer(QC): 4 Toilet Transfer (QC): 4 Car Transfer (QC): 4 Does the Patient Walk: Yes Walk 10 feet (QC): 4 Walk 50ft with 2 Turns (QC): 3 Walk 150 ft (QC): 3 Walking 10ft on Uneven Surface: 3 1 Step (curb) (QC): 88 4 Steps (QC): 88 12 Steps (QC): 88 Picking up an Object (QC): 4 Does the Pt use WC or Scooter?: Yes Wheel 50 feet with 2 turns (QC: 6 Type: Manual Wheel 150 feet: 6 Type: Manual PT Plan Problem List Problem List: Activity Tolerance, Transfer Treatment/Plan Treatment Plan: Continue Plan of Care Treatment Plan: Bed Mobility, Education, Functional Activity Debo, Functional Strength, Group Therapy, Gait, Safety, Therapeutic Exercise, Transfers Treatment Duration: May 11, 2021 Frequency: At least 5 of 7 days/Wk (IRF) Estimated Hrs Per Day: 1.5 hours per day Patient and/or Family Agrees t: Yes Safety Risks/Education Patient Education: Transfer Techniques, Correct Positioning Teaching Recipient: Patient Teaching Methods: Discussion Response to Teaching: Verbalize Understanding Time/GCodes Time In: 1330 Time Out: 1400 Total Billed Treatment Time: 30 Total Billed Treatment 1, EXANGELA SYDNEY FIXED INCOME MANAGER Mar 27, 2021 14:09
[2021-03-27 20:22] VITALS: BP 104/64
[2021-03-27] MEDS: TOLTERODINE LA 4 MG (DETROL) CAP PO SCH (20:27)
[2021-03-27] MEDS: BACLOFEN 10 MG (LIORESAL) TAB PO PRN (20:27)
[2021-03-27] MEDS: MELATONIN 3 MG TABLET PO PRN (20:27)
[2021-03-28 07:42] VITALS: BP 139/65
[2021-03-28] MEDS: ENOXAPARIN 40 MG/0.4 ML (LOVENOX) SYR SC SCH (08:01)
[2021-03-28] MEDS: HYDROcodone/APAP 7.5 MG/325 MG (LORTAB, LORCET PLUS) TABLET PO PRN ×2 (08:01→15:17)
[2021-03-28] MEDS: DULoxetine 30 MG (CYMBALTA) CAP PO SCH (08:01)
[2021-03-28] MEDS: ACETAMINOPHEN 500 MG TAB (TYLENOL) PO SCH ×2 (08:01→20:55)
[2021-03-28] MEDS: ETODOLAC 300 MG (LODINE) CAP PO SCH ×2 (08:01→17:16)
[2021-03-28] MEDS: lisINopril 20 MG (PRINIVIL) TABLET PO SCH (08:02)
--- NOTE | 2021-03-28 09:36 | Occupational Ther Daily Note ---
OT Current Status-Daily Note Subjective Pt at EOB, agreeable to OT Tx. Mental Status/Objective Patient Orientation: Person, Place, Time, Situation ADL-Treatment Therapy Code Descriptions/Definitions Functional [place] Measure: 0=Not Assessed/NA 4=Minimal Assistance 1=Total Assistance 5=Supervision or Setup 2=Maximal Assistance 6=Modified [place] 3=Moderate Assistance 7=Complete IndependenceSCALE: Activities may be completed with or without assistive devices. 0-Vmmmfrtpdx-dkolepe completes the activity by him/herself with no assistance from a helper. 5-Set-up or Clean-up Assistance-helper sets up or cleans up; patient completes activity. [place] assists only prior to or following the activity. 4-Supervision or Touching Assistance-helper provides verbal cues and/or touching/steadying and/or contact guard assistance as patient completes activity. Assistance may be provided throughout the activity or intermittently. 3-Partial/Moderate Assistance-helper does LESS THAN HALF the effort. [place] lifts, holds or supports trunk or limbs, but provides less than half the effort. 2-Substantial/Maximal Assistance-helper does MORE THAN HALF the effort. [place] lifts or holds trunk or limbs and provides more than half the effort. 1-Tvxtpmkbw-iqlaui does ALL the effort. Patient does none of the effort to complete the activity. Or, the assistance of 2 or more helpers is required for the patient to complete the activity. If activity was not attempted, code reason: 7-Patient Refused. 9-Not Applicable-not attempted and the patient did not perform the activity before the current illness, exacerbation or injury. 10-Not Attempted due to Environmental Limitations-(lack of equipment, weather restraints, etc.). 88-Not Attempted due to Medical Conditions or Safety Concerns. Eating (QC): 6 Oral Hygiene (QC): 6 Shower/Bathe Self (QC): 6 (IND seated on SC, pt able to wash/dry all parts.) Upper Body Dressing (QC): 6 (IND with tube puller shirt, pt able to gather items at w/c level.) Lower Body Dressing (QC): 4 (SBA, pt gathered items at w/c level, threaded LE clothing at SC, then SBA during sliding transfers to w/c then EOB in order for pt to complete pant hike at bed level.) On/Off Footwear: 5 (set up with handing pt socks from closet. Pt gathered tedhose and boots at w/c level. Pt able to don aspen hose, socks, and boots. ) Toileting Hygiene (QC): 4 (SBA during pant hike, pt leaned side to side on BSC to manage pants and able to perform hygiene seated.) Toilet Transfer (QC): 4 (SBA SB transfer on/off BSC.) Other Treatment [id number] OT tx. Pt at EOB, SB transfer to BSC, pt completed toileting, then leaned side to side to perform pant hike. Sliding transfer from BSC to w/c, then pt propelled into bathroom. Pt slid to SC, doffed clothing, completed shower, then threaded clothing. Pt slid to w/c, SBA, then transferred from w/c to bed in order to roll/lean side to side to perform pant hike. [id number] OT/PT cotreat due to skill of 2 clinicians required that a rehab/pre vocational counselor could not perform in order to coordinate UE/LEs, decrease fall risk, and due to pt's limitations in transfers/mobility, impulsivity, and strength. OT focused on UE placement, UE placement, cues for sequencing and safety. PT focused on LE placement, gross overall movement, and transfers/mobility. Pt performed functional mobility in parallel bars, x2. Cushion placed in w/c in order to raise height of surface. Pt performed sliding transfer from w/c to therapy mat. Post tx, pt in gym with PT, all needs met. Education OT Patient Education: Correct positioning, Energy conservation, Modified ADL techniques, Progress toward Goal/Update tx plan, Purpose of tx/functional act ivities, Rehab process Teaching Recipient: Patient Teaching Methods: Discussion Response to Teaching: Verbalize Understanding OT Short Term Goals Short Term Goals Time Frame: Mar 29, 2021 Toileting hygiene: 3 Shower/bathe self: 3 Lower body dressin Putting on/taking off footwear: 3 OT Production Machine Shop Supervisor Goals Production Machine Shop Supervisor Goals Time Frame: Apr 13, 2021 Eating (QC): 6 Oral Hygiene (QC): 6 Toileting Hygiene (QC): 4 Shower/Bathe Self (QC): 4 Upper Body Dressing (QC): 5 Lower Body Dressing (QC): 4 On/Off Footwear (QC): 5 Additional Goals: 1-Demonstrate ADL Tasks, 2-Verbalize Understanding, 3-ImproveStrength/Debo 1=Demonstrate adherence to instructed precautions during ADL tasks. 2=Patient will verbalize/demonstrate understanding of assistive devices/modifications for ADL. 3=Patient will improve strength/tolerance for activity to enable patient to perform ADL's. OT Education/Plan Problem List/Assessment Assessment: Decreased Activ Tolerance, Decreased UE Strength, Impaired I ADL's, Impaired Self-Care Skills Discharge Recommendations Plan/Recommendations: Continue POC Treatment Plan/Plan of Care Patient would benefit from OT for education, treatment and training to promote independence in ADL's, mobility, safety and/or upper extremity function for ADL's. Plan of Care: ADL Retraining, Functional Mobility, Group Exercise/Act as Ind, UE Funct Exercise/Act Treatment Duration: Apr 13, 2021 Frequency: At least 5 of 7 days/Wk (IRF) Estimated Hrs Per Day: 1.5 hours per day Agreement: Yes Rehab Potential: Fair Time/GCodes Start Time: 08:00 Stop Time: 09:30 Total Time Billed (hr/min): 90 Billed Treatment Time [id number] OT tx, [id number] OT/PT cotrea 1, ADL 4 (60'), FA 2 (30') SOURAV TALBOT OT Mar 28, 2021 09:36
--- NOTE | 2021-03-28 10:21 | Physical Therapy Daily Note ---
PT Daily Note-Current Subjective Pt. agrees to Rx and states he is motivated to improve. Pt.is frustrated that his R LE strength is not returning quicker. Pt. explains his function and routine at home and admits he has had several falls. Pt. agrees to cushion and increased height of seat in w/c and states this makes sit to stand easier Pain Location: No Pain Reported Mental Status Patient Orientation: Normal For Age Transfers SCALE: Activities may be completed with or without assistive devices. 1-Dpvmacwqyo-kfytjtq completes the activity by him/herself with no assistance from a helper. 5-Set-up or Clean-up Assistance-helper sets up or cleans up; patient completes activity. [place] assists only prior to or following the activity. 4-Supervision or Touching Assistance-helper provides verbal cues and/or touching/steadying and/or contact guard assistance as patient completes activity. Assistance may be provided throughout the activity or intermittently. 3-Partial/Moderate Assistance-helper does LESS THAN HALF the effort. [place] lifts, holds or supports trunk or limbs, but provides less than half the effort. 2-Substantial/Maximal Assistance-helper does MORE THAN HALF the effort. [place] lifts or holds trunk or limbs and provides more than half the effort. 0-Jjdljxeac-bhcbyl does ALL the effort. Patient does none of the effort to complete the activity. Or, the assistance of 2 or more helpers is required for the patient to complete the activity. If activity was not attempted, code reason: 7-Patient Refused. 9-Not Applicable-not attempted and the patient did not perform the activity before the current illness, exacerbation or injury. 10-Not Attempted due to Environmental Limitations-(lack of equipment, weather restraints, etc.). 88-Not Attempted due to Medical Conditions or Safety Concerns. Roll Left & Right (QC): 6 Sit to Lying (QC): 6 Lying to Sitting/Side of Bed(Q: 6 Sit to Stand (QC): 3 Chair/Pnl-mh-Xtdxw Xfer(QC): 5 bed mob is much effort for pt. but he proves he can do it Weight Bearing Right Lower Extremity: Right Touch Toe Bearing Left Lower Extremity: Left Full Weight Bearing Left and Right LE's demonstrates strength deficit from previous C5-T1 SCI Gait Training Does the Patient Walk?: Yes Gait Persons Needed: 2 Gait Assistive Device: Parallel Bars in // bars pt needs 1 skilled clinician for gait stability and one for w/c close behind. pt. drags RLE ,maintains TTWB but does not advance it. Discussed with pt. that he would profit from maintaining reciprocal pattern and attempting to advance RLE and still maintain TTWB Wheelchair Training Does the Pt Use a Wheelchair?: Yes Wheel 50 ft with 2 turns (QC): 6 Wheel 150 ft (QC): 6 Type of Wheelchair: Manual pt. demonstrates indep in applying and removing arm rests and leg rest as well as braking and fig 8s in tight areas Exercises Supine Ex: Ankle pumps (HC stretch bilat), Quad Set, Rolling, Glut sets, Heel Slides, Short Arc Quads (assisted), Scooting, Straight leg raise (asssited), Hip abd/add (assisted) Supine Reps: 15 Seated Therapy Exercises: Sit to stand, Long arc quads, Hip flexion Seated Reps: 15 Assessment Current Status: Good Progress gives full effort, very weak RLE, trace quad and glut, mass movement needs assist PT Short Term Goals Short Term Goals Time Frame: Apr 05, 2021 Roll Left & Right: 6 Sit to lyin Lying to sitting on side of be: 5 Sit to stand: 3 Chair/vii-vt-bqwcr transfer: 3 Toilet transfer: 3 Car transfer: 3 Walk 10 feet: 2 Walk 50 feet with two turns: 88 Walk 150 feet: 88 Walking 10ft on uneven surface: 88 1 step (curb): 88 4 steps: 88 12 steps: 88 Picking up objects: 2 Does pt use a wc or scooter: Yes Wheel 50ft w/2 turns: 5 Wheel 150 feet: 5 Type: Manual PT Hydrogen Power Plant Manager Goals Correction Goals PT Hydrogen Power Plant Manager Goals Time Frame: May 03, 2021 Roll Left & Right (QC): 6 Sit to Lying (QC): 6 Lying-Sitting on Side/Bed(QC): 6 Sit to Stand (QC): 5 Chair/Ays-zj-Ztgqe Xfer(QC): 4 Toilet Transfer (QC): 4 Car Transfer (QC): 4 Does the Patient Walk: Yes Walk 10 feet (QC): 4 Walk 50ft with 2 Turns (QC): 3 Walk 150 ft (QC): 3 Walking 10ft on Uneven Surface: 3 1 Step (curb) (QC): 88 4 Steps (QC): 88 12 Steps (QC): 88 Picking up an Object (QC): 4 Does the Pt use WC or Scooter?: Yes Wheel 50 feet with 2 turns (QC: 6 Type: Manual Wheel 150 feet: 6 Type: Manual PT Plan Treatment/Plan Treatment Plan: Continue Plan of Care Treatment Plan: Bed Mobility, Education, Functional Activity Debo, Functional Strength, Group Therapy, Gait, Safety, Therapeutic Exercise, Transfers Treatment Duration: May 11, 2021 Frequency: At least 5 of 7 days/Wk (IRF) Estimated Hrs Per Day: 1.5 hours per day Patient and/or Family Agrees t: Yes Safety Risks/Education Patient Education: Gait Training, Transfer Techniques, Correct Positioning, W/C Management, Disease Process, Safety Issues Teaching Recipient: Patient Teaching Methods: Demonstration, Discussion Response to Teaching: Verbalize Understanding, Return Demonstration, Reinforcement Needed Time/GCodes Time In: 900 Time Out: 1030 Total Billed Treatment Time: 90 Total Billed Treatment 1,WC15m,GT15m,FA30m,EX30m MONA ARCEO SERVICE ATTENDANT [place] Mar 28, 2021 10:21
--- NOTE | 2021-03-28 12:31 | PM&R Progress Note ---
Subjective HPI/CC On Admission Date Seen by Provider: Mar 28, 2021 Time Seen by Provider: 14:00 Subjective/Events-last exam 03/28/2021: He went to his orthopedic appointment today and they will keep him nonweightbearing for 4 more weeks Transportation came and picked him up without difficulty Finished his Keflex today 03/27/2021: Pt doing well Dressing changes maintained Keflex tolerated Needs a slide board to go home 03/26/2021: Pt doing well Dr. Guy is very pleased with his results from [facility] No incontinence Trial of no pain medication today Bowels are moving 03/25/21: Patient has no new issues BM+ No falls Improved transfers 03/24/21: Patient doing well Pain controlled Incision looks good BM+ 03/23/21: No issues reported Pain controlled Moving around well [place] appear to be reddened so will place on Keflex 03/22/2021: Patient doing well [place] are a bit irritated Bowels are moving well Appointment Friday with orthopedics then will return for a few more days of therapy 03/21/21: Pt doing really well Has an appointment next week so will DC him so he can go to his ortho appointment Able to use a wheel chair and slide board since he is used to that since 1965 from a cervical spine injury 03/20/2021: Pt doing really well No major issues Checked meds and labs Detrol LA really helping him Pain is controlled Participating in therapy 03/19/2021: Patient doing well Urology will see him on Friday Detrol LA ordered Bowels are moving 03/18/2021: Patient doing well Incontinence noted with bladder spasms so open to see urology Bowels are moving Incision looks good Baclofen is helped 03/17/2021: Patient doing very well Bowels are moving well Using slide board very well Lortab helps the pain Started baclofen to take at night for spasms 03/16/2021: Patient doing really well Took a shower today Refused laxatives due to loose stools Pain pills are managing the pain Participating in therapy Hemoglobin 7.8 will check iron level Review of Systems General: Fatigue Musculoskeletal: leg pain Objective Exam Vital Signs Vital Signs Date Time Temp Pulse Resp B/P (MAP) Pulse Ox O2 Delivery O2 Flow Rate FiO2 03/28/21 20:52 Room Air 03/28/21 20:00 36.8 77 16 110/55 (73 97 Capillary Refill : General Appearance: No Apparent Distress, WD/WN, Chronically ill HEENT: PERRL/EOMI, Normal ENT Inspection, Pharynx Normal Neck: Full Range of Motion, Normal Inspection, Non Tender, Supple, Carotid Bruit Respiratory: Chest Non Tender, Lungs Clear, Normal Breath Sounds, No Accessory Muscle Use, No Respiratory Distress Cardiovascular: Regular Rate, Rhythm, No Edema, No Gallop, No JVD, No Murmur, Normal Peripheral Pulses Gastrointestinal: Normal Bowel Sounds, No Organomegaly, No Pulsatile Mass, Non Tender, Soft Back: Normal Inspection, No CVA Tenderness, No Vertebral Tenderness Extremity: Normal Capillary Refill, Normal Inspection, Normal Range of Motion, Non Tender, No Calf Tenderness, No Pedal Edema Neurologic/Psychiatric: Alert, Oriented x3, Normal Mood/Affect, Abnormal Gait, Motor Weakness (Chronic left-sided weakness and minimal weightbearing on right) Skin: Normal Color, Warm/Dry Lymphatic: No Adenopathy Results/Procedures Lab Patient resulted labs reviewed. FIM Transfers Therapy Code Descriptions/Definitions Functional [place] Measure: 0=Not Assessed/NA 4=Minimal Assistance 1=Total Assistance 5=Supervision or Setup 2=Maximal Assistance 6=Modified [place] 3=Moderate Assistance 7=Complete IndependenceSCALE: Activities may be completed with or without assistive devices. 1-Uccvayiqfr-qzhqsjs completes the activity by him/herself with no assistance from a helper. 5-Set-up or Clean-up Assistance-helper sets up or cleans up; patient completes activity. [place] assists only prior to or following the activity. 4-Supervision or Touching Assistance-helper provides verbal cues and/or touc gita/steadying and/or contact guard assistance as patient completes activity. Assistance may be provided throughout the activity or intermittently. 3-Partial/Moderate Assistance-helper does LESS THAN HALF the effort. [place] lifts, holds or supports trunk or limbs, but provides less than half the effort. 2-Substantial/Maximal Assistance-helper does MORE THAN HALF the effort. [place] lifts or holds trunk or limbs and provides more than half the effort. 4-Gelvuxtmx-umiudl does ALL the effort. Patient does none of the effort to complete the activity. Or, the assistance of 2 or more helpers is required for the patient to complete the activity. If activity was not attempted, code reason: 7-Patient Refused. 9-Not Applicable-not attempted and the patient did not perform the activity before the current illness, exacerbation or injury. 10-Not Attempted due to Environmental Limitations-(lack of equipment, weather restraints, etc.). 88-Not Attempted due to Medical Conditions or Safety Concerns. Roll Left to Right (QC): 6 Sit to Lying (QC): 6 Sit to Stand (QC): 3 Chair/Yxu-ua-Nkkuc Xfer(QC): 5 Car Transfer (QC): 88 Gait Training Does the Patient Walk?: Yes Distance: 6' x3 Walk 10 feet (QC): 4 Walk 50 ft with 2 Turns(QC): 88 Walk 150 ft (QC): 88 Walking 10ft/uneven surface-QC: 88 Gait Persons Needed: 2 Gait Assistive Device: Parallel Bars Wheelchair Training Does the Pt Use a Wheelchair?: Yes Distance: 10 Wheel 50 ft with 2 turns (QC): 6 Wheel 150 ft (QC): 6 Type of Wheelchair: Manual Stair Training 1 Step (curb) (QC): 88 4 Steps (QC): 88 12 Steps (QC): 88 Balance Picking up an Object (QC): 88 ADL-Treatment Eating (QC): 6 Oral Hygiene (QC): 6 Shower/Bathe Self (QC): 6 (IND seated on SC, pt able to wash/dry all parts.) Upper Body Dressing (QC): 6 (IND with tack puller shirt, pt able to gather items at w/c level.) Lower Body Dressing (QC): 4 (SBA, pt gathered items at w/c level, threaded LE clothing at SC, then SBA during sliding transfers to w/c then EOB in order for pt to complete pant hike at bed level.) On/Off Footwear (QC): 5 (set up with handing pt socks from closet. Pt gathered tedhose and boots at w/c level. Pt able to don aspen hose, socks, and boots. ) Toileting Hygiene (QC): 4 (SBA during pant hike, pt leaned side to side on BSC to manage pants and able to perform hygiene seated.) Toilet Transfer (QC): 4 (SBA SB transfer on/off BSC.) Assessment/Plan Assessment and Plan Assess & Plan/Chief Complaint Assessment: Status post right hip fracture repair Oral tobacco use Alcohol use Hypertension Neurogenic bladder Cervical spine injury 1995 Anemia Neurogenic bladder dose self caths at home Early cellulitis staple line placed on Keflex 03/23/21 Plan: DVT prophylaxis Supportive care Bowel regimen 03/16/2021: Check iron level Participation in therapy Pain control 03/17/2021: Supportive care Aggressive rehab 03/18/2021: Urology follow-up Baclofen at night 03/19/2021: None appreciate urology [facility]rol [facility] started 03/20/2021: Doing well with therapy Monitor closely 03/21/21: Pain control Detrol [facility] Baclofen DC next week 03/22/2021: Pain control Appreciate Dr. Guy 03/23/21: Keflex 03/24/21: BM regimen Pain control 03/25/21: Continue pain management 03/26/2021: Keflex Ortho appointment Friday03/27/2021: Supportive care Pain control 03/28/2021: Remains nonweightbearing for 4 more weeks Discharge home Friday (1) Intertrochanteric fracture Status: Acute CHENG FARIAS DO Mar 28, 2021 12:31
[2021-03-28] MEDS: DICLOFENAC 1% GEL 100 GM (VOLTAREN) TUBE TOP SCH ×2 (17:17→20:57)
[2021-03-28 20:00] VITALS: BP 110/55
[2021-03-28] MEDS: TOLTERODINE LA 4 MG (DETROL) CAP PO SCH (20:54)
[2021-03-28] MEDS: BACLOFEN 10 MG (LIORESAL) TAB PO PRN (20:55)
[2021-03-28] MEDS: MELATONIN 3 MG TABLET PO PRN (20:55)
[2021-03-29] MEDS: HYDROcodone/APAP 7.5 MG/325 MG (LORTAB, LORCET PLUS) TABLET PO PRN ×2 (06:45→18:09)
[2021-03-29 07:59] VITALS: BP 118/73
--- NOTE | 2021-03-29 08:43 | Occupational Ther Daily Note ---
OT Current Status-Daily Note Subjective Pt in bed, agreeable to OT tx, denies having pain. Pt reports he is still restricted to TTWB RLE for another 4 weeks. Mental Status/Objective Patient Orientation: Person, Place, Time, Situation ADL-Treatment Therapy Code Descriptions/Definitions Functional [place] Measure: 0=Not Assessed/NA 4=Minimal Assistance 1=Total Assistance 5=Supervision or Setup 2=Maximal Assistance 6=Modified [place] 3=Moderate Assistance 7=Complete IndependenceSCALE: Activities may be completed with or without assistive devices. 3-Fumtmymbkn-eqhdjkn completes the activity by him/herself with no assistance from a helper. 5-Set-up or Clean-up Assistance-helper sets up or cleans up; patient completes activity. [place] assists only prior to or following the activity. 4-Supervision or Touching Assistance-helper provides verbal cues and/or touching/steadying and/or contact guard assistance as patient completes activity. Assistance may be provided throughout the activity or intermittently. 3-Partial/Moderate Assistance-helper does LESS THAN HALF the effort. [place] lifts, holds or supports trunk or limbs, but provides less than half the effort. 2-Substantial/Maximal Assistance-helper does MORE THAN HALF the effort. [place] lifts or holds trunk or limbs and provides more than half the effort. 3-Dlywepgbf-pxlzzf does ALL the effort. Patient does none of the effort to complete the activity. Or, the assistance of 2 or more helpers is required for the patient to complete the activity. If activity was not attempted, code reason: 7-Patient Refused. 9-Not Applicable-not attempted and the patient did not perform the activity before the current illness, exacerbation or injury. 10-Not Attempted due to Environmental Limitations-(lack of equipment, weather restraints, etc.). 88-Not Attempted due to Medical Conditions or Safety Concerns. Eating (QC): 6 (IND with breakfast) Lower Body Dressing (QC): 5 (set up at bed level.) On/Off Footwear: 5 (set up) Toileting Hygiene (QC): 4 (SBA with hygiene and clothing management.) Toilet Transfer (QC): 4 (SBA uising SB on/off drop arm BSC) Other Treatment [id number] OT Tx. Pt in bed, finishing breakfast. Pt then transferred to EOB without assistance, SB transfer to BSC, SBA. Pt completed toileting, then transferred back to bed to complete dressing tasks as outlined above. [id number] OT/PT cotreat due to skill of 2 clinicians required that a bakery technician could not perform in order to coordinate UE/LEs, decrease fall risk, and due to pt's limitations in transfers/mobility, impulsivity, and strength. OT focused on UE placement, UE placement, cues for sequencing and safety. PT focused on LE placement, gross overall movement, and transfers/mobility. Pt completed bed mobility, then transferred from bed to w/c via sliding transfer without SB. Pt propelled w/c into common area, completing car transfer using SB, performed w/c mobility around ARU common area/2nd floor, then to 1st floor to complete going up/down ramp. Pt propelled w/c to therapy gym, ambulating x3 trials in parallel bars 6' each. Refer to PT note for QCs associated with mobility/transfer. Post tx, pt with PT in therapy gym, all needs met. Education OT Patient Education: Correct positioning, Modified ADL techniques, Progress toward Goal/Update tx plan, Purpose of tx/functional activities Teaching Recipient: Patient Teaching Methods: Discussion Response to Teaching: Verbalize Understanding OT Short Term Goals Short Term Goals Time Frame: Mar 29, 2021 Toileting hygiene: 3 Shower/bathe self: 3 Lower body dressin Putting on/taking off footwear: 3 OT Vice President Of Product Marketing Goals Vice President Of Product Marketing Goals Time Frame: Apr 13, 2021 Eating (QC): 6 (met) Oral Hygiene (QC): 6 (met) Toileting Hygiene (QC): 4 (met) Shower/Bathe Self (QC): 4 (met) Upper Body Dressing (QC): 5 (met) Lower Body Dressing (QC): 4 (met) On/Off Footwear (QC): 5 (met) Additional Goals: 1-Demonstrate ADL Tasks, 2-Verbalize Understanding, 3-Im proveStrength/Debo 1=Demonstrate adherence to instructed precautions during ADL tasks. 2=Patient will verbalize/demonstrate understanding of assistive devices/modifications for ADL. 3=Patient will improve strength/tolerance for activity to enable patient to perform ADL's. OT Education/Plan Problem List/Assessment Assessment: Impaired I ADL's, Impaired Self-Care Skills Discharge Recommendations Plan/Recommendations: Continue POC Treatment Plan/Plan of Care Patient would benefit from OT for education, treatment and training to promote independence in ADL's, mobility, safety and/or upper extremity function for ADL's. Plan of Care: ADL Retraining, Functional Mobility, Group Exercise/Act as Ind, UE Funct Exercise/Act Treatment Duration: Apr 13, 2021 Frequency: At least 5 of 7 days/Wk (IRF) Estimated Hrs Per Day: 1.5 hours per day Agreement: Yes Rehab Potential: Fair Time/GCodes Start Time: 07:15 Stop Time: 08:45 Total Time Billed (hr/min): 90 Billed Treatment Time [id number] OT Tx, [id number] OT/PT cotreat 1, ADL 3 (45'), FA 3 (45') SOURAV TALBOT OT Mar 29, 2021 08:43
[2021-03-29] MEDS: ETODOLAC 300 MG (LODINE) CAP PO SCH ×2 (08:49→17:35)
[2021-03-29] MEDS: ACETAMINOPHEN 500 MG TAB (TYLENOL) PO SCH ×2 (08:50→21:00)
[2021-03-29] MEDS: DULoxetine 30 MG (CYMBALTA) CAP PO SCH (08:51)
[2021-03-29] MEDS: lisINopril 20 MG (PRINIVIL) TABLET PO SCH (08:52)
[2021-03-29] MEDS: ENOXAPARIN 40 MG/0.4 ML (LOVENOX) SYR SC SCH (08:53)
[2021-03-29] MEDS: FERROUS SULF 325 MG (IRON) TAB PO SCH (09:01)
[2021-03-29] MEDS: DICLOFENAC 1% GEL 100 GM (VOLTAREN) TUBE TOP SCH ×4 (09:01→21:03)
--- NOTE | 2021-03-29 09:02 | Physical Therapy Daily Note ---
PT Daily Note-Current Subjective Pt in bed upon arrival with OT and agrees to co-treat. Pt has no c/o pain. Use of 2 skilled clinicians d/t pt poor mobility, impulsiveness, weakness, safety, and decrease risk of falls Mental Status Patient Orientation: Person, Place, Time, Situation Transfers SCALE: Activities may be completed with or without assistive devices. 4-Xwbzkaxkny-sowsenc completes the activity by him/herself with no assistance from a helper. 5-Set-up or Clean-up Assistance-helper sets up or cleans up; patient completes activity. [place] assists only prior to or following the activity. 4-Supervision or Touching Assistance-helper provides verbal cues and/or touching/steadying and/or contact guard assistance as patient completes activity. Assistance may be provided throughout the activity or intermittently. 3-Partial/Moderate Assistance-helper does LESS THAN HALF the effort. [place] lifts, holds or supports trunk or limbs, but provides less than half the effort. 2-Substantial/Maximal Assistance-helper does MORE THAN HALF the effort. [place] lifts or holds trunk or limbs and provides more than half the effort. 2-Zoqzawtle-jultoo does ALL the effort. Patient does none of the effort to complete the activity. Or, the assistance of 2 or more helpers is required for the patient to complete the activity. If activity was not attempted, code reason: 7-Patient Refused. 9-Not Applicable-not attempted and the patient did not perform the activity before the current illness, exacerbation or injury. 10-Not Attempted due to Environmental Limitations-(lack of equipment, weather restraints, etc.). 88-Not Attempted due to Medical Conditions or Safety Concerns. Roll Left & Right (QC): 6 Sit to Lying (QC): 6 Lying to Sitting/Side of Bed(Q: 6 Sit to Stand (QC): 3 Chair/Weq-ma-Agceb Xfer(QC): 5 Toilet Transfer (QC): 5 Car Transfer (QC): 5 Weight Bearing Right Lower Extremity: Right Touch Toe Bearing Left Lower Extremity: Left Full Weight Bearing Left and Right LE's demonstrates strength deficit from previous C5-T1 SCI Gait Training Does the Patient Walk?: Yes Distance: 6' x3 Walk 10 feet (QC): 88 Walk 50 ft with 2 Turns(QC): 88 Walk 150 ft (QC): 88 Walking 10ft/uneven surface-QC: 88 Gait Assistive Device: Parallel Bars Wheelchair Training Does the Pt Use a Wheelchair?: Yes Wheel 50 ft with 2 turns (QC): 6 Wheel 150 ft (QC): 6 Type of Wheelchair: Manual Stair Training 1 Step (curb) (QC): 88 4 Steps (QC): 88 12 Steps (QC): 88 Balance Picking up an Object (QC): 6 Special Test Comments policy change clerks supervisor object while in WC Exercises Standing: Sit to Stand Standing Reps: 6 Treatments [phone] Co-treat: OT focused on dressing, ADLs, UE positioning, and UE strengthening. PT focused on transfers, mobility, and gait. Pt in bed donning pants with OT, instructed on bed mobility. Pt sitting at foot of bed, able to scoot to HOB with use of hand rails. Pt completes bed mobility, then completes slide transfer without use of SB SBA. Pt propels WC 300' on ARU, to elevators and practices ramp on first floors. Pt then returns to ARU, and enters // bars. Pt sit to stand and amb 6' x3, Mihai sit <> stand. OT exits tx post 3rd amb bout. [id number]: Pt propels WC 300' on ARU and enters room, pt completes sit <> stand transfers while pulling up on counter in room, as pt states this is what he would do at home. Pt returns to , nursing in room. Pt remains with all needs met and call light in hand. Assessment Current Status: Fair Progress Pt requires frequent rest breaks d/t low activity tolerance. Mod VC to keep pt focused as pt is easily distracted throughout tx PT Short Term Goals Short Term Goals Time Frame: Apr 05, 2021 Roll Left & Right: 6 Sit to lyin Lying to sitting on side of be: 5 Sit to stand: 3 Chair/yvs-au-ywckq transfer: 3 Toilet transfer: 3 Car transfer: 3 Walk 10 feet: 2 Walk 50 feet with two turns: 88 Walk 150 feet: 88 Walking 10ft on uneven surface: 88 1 step (curb): 88 4 steps: 88 12 steps: 88 Picking up objects: 2 Does pt use a wc or scooter: Yes Wheel 50ft w/2 turns: 5 Wheel 150 feet: 5 Type: Manual PT Design/Animation Instructor Goals Long-Term Goals PT Design/Animation Instructor Goals Time Frame: May 03, 2021 Roll Left & Right (QC): 6 Sit to Lying (QC): 6 Lying-Sitting on Side/Bed(QC): 6 Sit to Stand (QC): 5 Chair/Gbb-yc-Mwjib Xfer(QC): 4 Toilet Transfer (QC): 4 Car Transfer (QC): 4 Does the Patient Walk: Yes Walk 10 feet (QC): 4 Walk 50ft with 2 Turns (QC): 3 Walk 150 ft (QC): 3 Walking 10ft on Uneven Surface: 3 1 Step (curb) (QC): 88 4 Steps (QC): 88 12 Steps (QC): 88 Picking up an Object (QC): 4 Does the Pt use WC or Scooter?: Yes Wheel 50 feet with 2 turns (QC: 6 Type: Manual Wheel 150 feet: 6 Type: Manual PT Plan Problem List Problem List: Activity Tolerance, Safety Treatment/Plan Treatment Plan: Continue Plan of Care Treatment Plan: Bed Mobility, Education, Functional Activity Debo, Functional Strength, Group Therapy, Gait, Safety, Therapeutic Exercise, Transfers Treatment Duration: May 11, 2021 Frequency: At least 5 of 7 days/Wk (IRF) Estimated Hrs Per Day: 1.5 hours per day Patient and/or Family Agrees t: Yes Safety Risks/Education Patient Education: Gait Training, Transfer Techniques Teaching Recipient: Patient Teaching Methods: Discussion Response to Teaching: Verbalize Understanding Time/GCodes Time In: 800 Time Out: 900 Total Billed Treatment Time: 60 Total Billed Treatment 1, WC x2, FA x2 MOIRA WAKEFIELD PTA Mar 29, 2021 09:02
--- NOTE | 2021-03-29 12:23 | PM&R Progress Note ---
Subjective HPI/CC On Admission Date Seen by Provider: Mar 29, 2021 Time Seen by Provider: 12:20 Subjective/Events-last exam 03/29/2021: Ready for discharge tomorrow Nonweightbearing for 4 more weeks Changing Lovenox to Eliquis for DVT prophylaxis per orthopedic recommendation 03/28/2021: He went to his orthopedic appointment today and they will keep him nonweightbearing for 4 more weeks Transportation came and picked him up without difficulty Finished his Keflex today 03/27/2021: Pt doing well Dressing changes maintained Keflex tolerated Needs a slide board to go home 03/26/2021: Pt doing well Dr. Guy is very pleased with his results from Detrol-LA No incontinence Trial of no pain medication today Bowels are moving 03/25/21: Patient has no new issues BM+ No falls Improved transfers 03/24/21: Patient doing well Pain controlled Incision looks good BM+ 03/23/21: No issues reported Pain controlled Moving around well [place] appear to be reddened so will place on Keflex 03/22/2021: Patient doing well [place] are a bit irritated Bowels are moving well Appointment Friday with orthopedics then will return for a few more days of therapy 03/21/21: Pt doing really well Has an appointment next week so will DC him so he can go to his ortho appointment Able to use a wheel chair and slide board since he is used to that since 1965 from a cervical spine injury 03/20/2021: Pt doing really well No major issues Checked meds and labs Detrol LA really helping him Pain is controlled Participating in therapy 03/19/2021: Patient doing well Urology will see him on Friday Detrol LA ordered Bowels are moving 03/18/2021: Patient doing well Incontinence noted with bladder spasms so open to see urology Bowels are moving Incision looks good Baclofen is helped 03/17/2021: Patient doing very well Bowels are moving well Using slide board very well Lortab helps the pain Started baclofen to take at night for spasms 03/16/2021: Patient doing really well Took a shower today Refused laxatives due to loose stools Pain pills are managing the pain Participating in therapy Hemoglobin 7.8 will check iron level Review of Systems General: Fatigue, Malaise Objective Exam Vital Signs Vital Signs Date Time Temp Pulse Resp B/P (MAP) Pulse Ox O2 Delivery O2 Flow Rate FiO2 03/29/21 21:47 95 Room Air 03/29/21 20:00 36.9 74 18 109/59 (76) Capillary Refill : General Appearance: No Apparent Distress, WD/WN, Chronically ill HEENT: PERRL/EOMI, Normal ENT Inspection, Pharynx Normal Neck: Full Range of Motion, Normal Inspection, Non Tender, Supple, Carotid Bruit Respiratory: Chest Non Tender, Lungs Clear, Normal Breath Sounds, No Accessory Muscle Use, No Respiratory Distress Cardiovascular: Regular Rate, Rhythm, No Edema, No Gallop, No JVD, No Murmur, Normal Peripheral Pulses Gastrointestinal: Normal Bowel Sounds, No Organomegaly, No Pulsatile Mass, Non Tender, Soft Back: Normal Inspection, No CVA Tenderness, No Vertebral Tenderness Extremity: Normal Capillary Refill, Normal Inspection, Normal Range of Motion, Non Tender, No Calf Tenderness, No Pedal Edema Neurologic/Psychiatric: Alert, Oriented x3, Normal Mood/Affect, Abnormal Gait, Motor Weakness (Chronic left-sided weakness and minimal weightbearing on right) Skin: Normal Color, Warm/Dry Lymphatic: No Adenopathy Results/Procedures Lab Patient resulted labs reviewed. FIM Transfers Therapy Code Descriptions/Definitions Functional [place] Measure: 0=Not Assessed/NA 4=Minimal Assistance 1=Total Assistance 5=Supervision or Setup 2=Maximal Assistance 6=Modified [place] 3=Moderate Assistance 7=Complete IndependenceSCALE: Activities may be completed with or without assistive devices. 8-Qpibarsfex-enhdloa completes the activity by him/herself with no assistance from a helper. 5-Set-up or Clean-up Assistance-helper sets up or cleans up; patient completes activity. [place] assists only prior to or following the activity. 4-Supervision or Touching Assistance-helper provides verbal cues and/or touching/steadying and/or contact guard assistance as patient completes activity. Assistance may be provided throughout the activity or intermittently. 3-Partial/Moderate Assistance-helper does LESS THAN HALF the effort. [place] lifts, holds or supports trunk or limbs, but provides less than half the effort. 2-Substantial/Maximal Assistance-helper does MORE THAN HALF the effort. [place] lifts or holds trunk or limbs and provides more than half the effort. 3-Ccucrjqps-mfltwc does ALL the effort. Patient does none of the effort to complete the activity. Or, the assistance of 2 or more helpers is required for the patient to complete the activity. If activity was not attempted, code reason: 7-Patient Refused. 9-Not Applicable-not attempted and the patient did not perform the activity before the current illness, exacerbation or injury. 10-Not Attempted due to Environmental Limitations-(lack of equipment, weather restraints, etc.). 88-Not Attempted due to Medical Conditions or Safety Concerns. Roll Left to Right (QC): 6 Sit to Lying (QC): 6 Sit to Stand (QC): 3 Chair/Wne-zi-Uerld Xfer(QC): 5 Car Transfer (QC): 5 Gait Training Does the Patient Walk?: Yes Distance: 6' x3 Walk 10 feet (QC): 88 Walk 50 ft with 2 Turns(QC): 88 Walk 150 ft (QC): 88 Walking 10ft/uneven surface-QC: 88 Gait Persons Needed: 2 Gait Assistive Device: Parallel Bars Wheelchair Training Does the Pt Use a Wheelchair?: Yes Distance: 10 Wheel 50 ft with 2 turns (QC): 6 Wheel 150 ft (QC): 6 Type of Wheelchair: Manual Stair Training 1 Step (curb) (QC): 88 4 Steps (QC): 88 12 Steps (QC): 88 Balance Picking up an Object (QC): 6 ADL-Treatment Eating (QC): 6 (IND with breakfast) Oral Hygiene (QC): 6 Shower/Bathe Self (QC): 6 (IND seated on SC, pt able to wash/dry all parts.) Upper Body Dressing (QC): 6 (IND with loop puller shirt, pt able to gather items at w/c level.) Lower Body Dressing (QC): 5 (set up at bed level.) On/Off Footwear (QC): 5 (set up) Toileting Hygiene (QC): 4 (SBA with hygiene and clothing management.) Toilet Transfer (QC): 4 (SBA uising SB on/off drop arm BSC) Assessment/Plan Assessment and Plan Assess & Plan/Chief Complaint Assessment: Status post right hip fracture repair Oral tobacco use Alcohol use Hypertension Neurogenic bladder Cervical spine injury 1996 Anemia Neurogenic bladder dose self caths at home Early cellulitis staple line placed on Keflex 03/23/21 Plan: DVT prophylaxis Supportive care Bowel regimen 03/16/2021: Check iron level Participation in therapy Pain control 03/17/2021: Supportive care Aggressive rehab 03/18/2021: Urology follow-up Baclofen at night 03/19/2021: None appreciate urology Detrol LA started 03/20/2021: Doing well with therapy Monitor closely 03/21/21: Pain control Detrol LA Baclofen DC next week 03/22/2021: Pain control Appreciate Dr. Guy 03/23/21: Keflex 03/24/21: BM regimen Pain control 03/25/21: Continue pain management 03/26/2021: Keflex Ortho appointment Friday03/27/2021: Supportive care Pain control 03/28/2021: Remains nonweightbearing for 4 more weeks Discharge home Friday03/29/2021: Keflex Discharge tomorrow (1) Intertrochanteric fracture Status: Acute CHENG FARIAS DO Mar 29, 2021 12:23
[2021-03-29] MEDS: ACETAMINOPHEN 325 MG TABLET PO PRN (12:38)
--- NOTE | 2021-03-29 13:32 | Physical Therapy Daily Note ---
PT Daily Note-Current Subjective Pt in WC in [facility] upon arrival and agrees to tx. pt has no c/o pain at this time Transfers SCALE: Activities may be completed with or without assistive devices. 1-Kbprdwtcsx-eymgjku completes the activity by him/herself with no assistance from a helper. 5-Set-up or Clean-up Assistance-helper sets up or cleans up; patient completes activity. [place] assists only prior to or following the activity. 4-Supervision or Touching Assistance-helper provides verbal cues and/or touching/steadying and/or contact guard assistance as patient completes activity. Assistance may be provided throughout the activity or intermittently. 3-Partial/Moderate Assistance-helper does LESS THAN HALF the effort. [place] lifts, holds or supports trunk or limbs, but provides less than half the effort. 2-Substantial/Maximal Assistance-helper does MORE THAN HALF the effort. [place] lifts or holds trunk or limbs and provides more than half the effort. 5-Venndwvmm-xfwjjv does ALL the effort. Patient does none of the effort to complete the activity. Or, the assistance of 2 or more helpers is required for the patient to complete the activity. If activity was not attempted, code reason: 7-Patient Refused. 9-Not Applicable-not attempted and the patient did not perform the activity before the current illness, exacerbation or injury. 10-Not Attempted due to Environmental Limitations-(lack of equipment, weather restraints, etc.). 88-Not Attempted due to Medical Conditions or Safety Concerns. Weight Bearing Right Lower Extremity: Right Touch Toe Bearing Left Lower Extremity: Left Full Weight Bearing Left and Right LE's demonstrates strength deficit from previous C5-T1 SCI Wheelchair Training Does the Pt Use a Wheelchair?: Yes Wheel 50 ft with 2 turns (QC): 6 Wheel 150 ft (QC): 6 Type of Wheelchair: Manual Exercises NuStep Minutes: 15 NuStep Workload: 1 Treatments Pt in WC and propels 300' on ARU and enters therapy gym. pt slide transfers to NuStep SBA, completes NuStep on WL of 1 to keep TTWB for 15 minutes. Pt then propels WC another 300' and returns to room. Pt remains in WC with all needs met, call light in hand. Assessment Current Status: Fair Progress Increasing endurance, mobility, and strength PT Short Term Goals Short Term Goals Time Frame: Apr 05, 2021 Roll Left & Right: 6 Sit to lyin Lying to sitting on side of be: 5 Sit to stand: 3 Chair/nqs-cr-idlui transfer: 3 Toilet transfer: 3 Car transfer: 3 Walk 10 feet: 2 Walk 50 feet with two turns: 88 Walk 150 feet: 88 Walking 10ft on uneven surface: 88 1 step (curb): 88 4 steps: 88 12 steps: 88 Picking up objects: 2 Does pt use a wc or scooter: Yes Wheel 50ft w/2 turns: 5 Wheel 150 feet: 5 Type: Manual PT Long-Term Goals Long-Term Goals PT Long-Term Goals Time Frame: May 03, 2021 Roll Left & Right (QC): 6 Sit to Lying (QC): 6 Lying-Sitting on Side/Bed(QC): 6 Sit to Stand (QC): 5 Chair/Jnk-dc-Oghbk Xfer(QC): 4 Toilet Transfer (QC): 4 Car Transfer (QC): 4 Does the Patient Walk: Yes Walk 10 feet (QC): 4 Walk 50ft with 2 Turns (QC): 3 Walk 150 ft (QC): 3 Walking 10ft on Uneven Surface: 3 1 Step (curb) (QC): 88 4 Steps (QC): 88 12 Steps (QC): 88 Picking up an Object (QC): 4 Does the Pt use WC or Scooter?: Yes Wheel 50 feet with 2 turns (QC: 6 Type: Manual Wheel 150 feet: 6 Type: Manual PT Plan Treatment/Plan Treatment Plan: Continue Plan of Care Treatment Plan: Bed Mobility, Education, Functional Activity Debo, Functional Strength, Group Therapy, Gait, Safety, Therapeutic Exercise, Transfers Treatment Duration: May 11, 2021 Frequency: At least 5 of 7 days/Wk (IRF) Estimated Hrs Per Day: 1.5 hours per day Patient and/or Family Agrees t: Yes Safety Risks/Education Patient Education: Transfer Techniques Teaching Recipient: Patient Teaching Methods: Discussion Response to Teaching: Verbalize Understanding Time/GCodes Time In: 1300 Time Out: 1330 Total Billed Treatment Time: 30 Total Billed Treatment 1, Ex, LEDY MOIRA WAKEFIELD SWINGING CUT OFF SAW OPERATOR Mar 29, 2021 13:32
[2021-03-29] MEDS ORDERED: APIX2.5T PO (17:06)
[2021-03-29] MEDS: CEPHALEXIN 250 MG (KEFLEX) CAP PO SCH ×2 (17:35→21:01)
[2021-03-29 20:00] VITALS: BP 109/59
[2021-03-29] MEDS: TOLTERODINE LA 4 MG (DETROL) CAP PO SCH (21:00)
[2021-03-29] MEDS: BACLOFEN 10 MG (LIORESAL) TAB PO PRN (21:01)
[2021-03-29] MEDS: MELATONIN 3 MG TABLET PO PRN (21:01)
[2021-03-30] MEDS ORDERED: APIXABAN 2.5 MG (ELIQUIS) TABLET PO NR (06:00)
--- NOTE | 2021-03-30 06:01 | D/C HH Face to Face Order ---
D/C Face to Face Orders Reconcile Patient Problems Problems Reviewed?: Yes Instructions for Patient Via [facility] [employer], Patient Instructions/FollowUp: PCP in 1 week Physician to follow Patient: PCP Discharge Diet for Home: No Restrictions Patient Problems: Right femur fracture Patient Data-Allergies,Ht & Wt Patient Allergies: Coded Allergies: morphine (Verified Allergy, Unknown, 03/15/21) MAKES HIM CRAZY AND FEEL BAD Uncoded Allergies: Bee Sting (Adverse Reaction, Severe, Swelling, 12/11/19) Home Health Need/Face to Face Date of Face to Face: Mar 30, 2021 Clinical Findings: Instability, Muscle weakness, Non or partial weight bearing, Unsteady gait I have seen Pt cwel-nz-ldue: Yes Discharged To: Home Diagnosis/Conditions: Right femur fracture Patient is Homebound due to: [place] fall risk due to instabilty, Non-weight bearing, Pain w/ambulation Homebound Status Due to the above stated illness, injury or surgical procedure (medical condition or diagnosis) and associated clinical findings, the patient is homebound because of his/her inability to leave home except with aid of a supportive device and/or person AND leaving the home requires a considerable and taxing effort or is medically contraindicated. Pt req the following assistanc: Walker, Wheelchair Home Health Nursing Orders Home Health Services Order: Nursing Services, [employer]-Evaluate & Treat, Physical Therapy-Evaluate & Treat [facility] that this patient is under my care and that I, a nurse practitioner or a physician; a assistant federal public defender working with me, had a face to face encounter that - meets the physician face to face encounter requirements with this patient as dated. CHENG FARIAS DO Mar 30, 2021 06:01
[2021-03-30] MEDS ORDERED: TOLTA4 PO (06:03)
[2021-03-30] MEDS ORDERED: SENN1TAB76 PO (06:03)
[2021-03-30] MEDS ORDERED: DICL100G13 TOP (06:03)
[2021-03-30] MEDS ORDERED: HYDR-34 PO (06:03)
[2021-03-30] MEDS ORDERED: CEPH250C PO (06:03)
[2021-03-30] MEDS ORDERED: BACL10TA PO (06:03)
[2021-03-30] MEDS ORDERED: FERR325T24 PO (06:03)
--- NOTE | 2021-03-30 06:04 | Discharge Summary ---
Diagnosis/Chief Complaint Date of Admission Mar 15, 2021 at 15:40 Date of Discharge Discharge Date: Mar 30, 2021 Discharge Diagnosis Assessment: Status post right hip fracture repair Oral tobacco use Alcohol use Hypertension Neurogenic bladder Cervical spine injury 1995 Anemia Neurogenic bladder dose self caths at home Early cellulitis staple line placed on Keflex 03/23/21 Plan: DVT prophylaxis Supportive care Bowel regimen 03/16/2021: Check iron level Participation in therapy Pain control 03/17/2021: Supportive care Aggressive rehab 03/18/2021: Urology follow-up Baclofen at night 03/19/2021: None appreciate urology Detrol LA started 03/20/2021: Doing well with therapy Monitor closely 03/21/21: Pain control Detrol LA Baclofen DC next week 03/22/2021: Pain control Appreciate Dr. Guy 03/23/21: Keflex 03/24/21: BM regimen Pain control 03/25/21: Continue pain management 03/26/2021: Keflex Ortho appointment Friday03/27/2021: Supportive care Pain control 03/28/2021: Remains nonweightbearing for 4 more weeks Discharge home Friday03/29/2021: Keflex Discharge tomorrow (1) Intertrochanteric fracture Status: Acute Discharge Summary Discharge Physical Examination Allergies: Coded Allergies: morphine (Verified Allergy, Unknown, 03/15/21) MAKES HIM CRAZY AND FEEL BAD Uncoded Allergies: Bee Sting (Adverse Reaction, Severe, Swelling, 12/11/19) Vitals & I&Os Vital Signs Date Time Temp Pulse Resp B/P (MAP) Pulse Ox O2 Delivery O2 Flow Rate FiO2 03/30/21 12:25 36.0 74 16 107/66 98 Room Air General Appearance: Alert, Oriented X3, Cooperative Respiratory: Clear to Auscultation Cardiovascular: Regular Rate Neuro: Normal Gait, Strength at 5/5 X4 Ext Psych/Mental Status: Mental Status NL Hospital Course Was the Problem List Reviewed?: Yes Hospital course: standard for 16 days in IRF after admitted after right femur fracture s/p repair. Dr Guy consulted for incontinence and good results with Detrol LA and that was Rx at DC. Pain management was successful. Bowel regimen maintained. Keflex initiated for cellulitis at staple line. Xarelto was given at DC for 1 month at ortho direction for DVT PPx. Labs (last 24 hrs) Laboratory Tests 03/16/21 06:00: White Blood Count 3.9L, Red Blood Count 2.65L, Hemoglobin 7.8#L, Hematocrit 24L, Mean Corpuscular Volume 92, Mean Corpuscular Hemoglobin 29, Mean Corpuscular Hemoglobin Concent 32, Red Cell Distribution Width 13.4, Platelet Count 153, Mean Platelet Volume 10.0, Immature Granulocyte % (Auto) 0, Neutrophils (%) (Auto) 64, Lymphocytes (%) (Auto) 18, Monocytes (%) (Auto) 11, Eosinophils (%) (Auto) 6, Basophils (%) (Auto) 1, Neutrophils # (Auto) 2.5, Lymphocytes # (Auto) 0.7L, Monocytes # (Auto) 0.4, Eosinophils # (Auto) 0.2, Basophils # (Auto) 0.0, Immature Granulocyte # (Auto) 0.0, Sodium Level 140, Potassium Level 4.0, Chloride Level 106, Carbon Dioxide Level 24, Anion Gap 10, Blood Urea Nitrogen 8, Creatinine 0.67, Estimat Glomerular Filtration Rate 125, BUN/Creatinine Ratio 12, Glucose Level 92, Calcium Level 8.0L, Corrected Calcium 8.9, Iron Level 32L, Total Bilirubin 0.7, Aspartate Amino Transf (AST/SGOT) 27, Alanine Aminotransferase (ALT/SGPT) 16, Alkaline Phosphatase 61, Total Protein 5.3L, Albumin 2.9L 03/19/21 06:47: White Blood Count 5.8, Red Blood Count 2.93L, Hemoglobin 8.7L, Hematocrit 28L, Mean Corpuscular Volume 95, Mean Corpuscular Hemoglobin 30, Mean Corpuscular Hemoglobin Concent 31L, Red Cell Distribution Width 14.7H, Platelet Count 240, Mean Platelet Volume 9.3, Immature Granulocyte % (Auto) 2, Neutrophils (%) (Auto) 65, Lymphocytes (%) (Auto) 17, Monocytes (%) (Auto) 11, Eosinophils (%) (Auto) 5, Basophils (%) (Auto) 1, Neutrophils # (Auto) 3.8, Lymphocytes # (Auto) 1.0, Monocytes # (Auto) 0.6, Eosinophils # (Auto) 0.3, Basophils # (Auto) 0.1, Immature Granulocyte # (Auto) 0.1, Sodium Level 141, Potassium Level 4.1, Chloride Level 105, Carbon Dioxide Level 25, Anion Gap 11, Blood Urea Nitrogen 15, Creatinine 0.75, Estimat Glomerular Filtration Rate 110, BUN/Creatinine Ratio 20, Glucose Level 89, Calcium Level 8.5, Corrected Calcium 9.1, Total Bilirubin 0.9, Aspartate Amino Transf (AST/SGOT) 28, Alanine Aminotransferase (ALT/SGPT) 29, Alkaline Phosphatase 69, Total Protein 6.0L, Albumin 3.2 03/26/21 05:46: White Blood Count 5.4, Red Blood Count 3.33L, Hemoglobin 9.8L, Hematocrit 32L, Mean Corpuscular Volume 96, Mean Corpuscular Hemoglobin 29, Mean Corpuscular Hemoglobin Concent 31L, Red Cell Distribution Width 15.6H, Platelet Count 318, Mean Platelet Volume 9.4, Immature Granulocyte % (Auto) 1, Neutrophils (%) (Auto) 64, Lymphocytes (%) (Auto) 20, Monocytes (%) (Auto) 9, Eosinophils (%) (Auto) 5, Basophils (%) (Auto) 1, Neutrophils # (Auto) 3.4, Lymphocytes # (Auto) 1.1, Monocytes # (Auto) 0.5, Eosinophils # (Auto) 0.3, Basophils # (Auto) 0.1, Immature Granulocyte # (Auto) 0.0, Sodium Level 138, Potassium Level 4.4, Chloride Level 105, Carbon Dioxide Level 22, Anion Gap 11, Blood Urea Nitrogen 13, Creatinine 0.73, Estimat Glomerular Filtration Rate 113, BUN/Creatinine Ratio 18, Glucose Level 90, Calcium Level 8.5, Corrected Calcium 9.1, Total Bilirubin 0.6, Aspartate Amino Transf (AST/SGOT) 21, Alanine Aminotransferase (ALT/SGPT) 23, Alkaline Phosphatase 141H, Total Protein 6.2L, Albumin 3.3 Pending Labs Laboratory Tests 03/16/21 06:00: White Blood Count 3.9, Red Blood Count 2.65, Hemoglobin 7.8, Hematocrit 24, Mean Corpuscular Volume 92, Mean Corpuscular Hemoglobin 29, Mean Corpuscular Hemoglobin Concent 32, Red Cell Distribution Width 13.4, Platelet Count 153, Mean Platelet Volume 10.0, Immature Granulocyte % (Auto) 0, Neutrophils (%) (Auto) 64, Lymphocytes (%) (Auto) 18, Monocytes (%) (Auto) 11, Eosinophils (%) (Auto) 6, Basophils (%) (Auto) 1, Neutrophils # (Auto) 2.5, Lymphocytes # (Auto) 0.7, Monocytes # (Auto) 0.4, Eosinophils # (Auto) 0.2, Basophils # (Auto) 0.0, Immature Granulocyte # (Auto) 0.0, Sodium Level 140, Potassium Level 4.0, Chloride Level 106, Carbon Dioxide Level 24, Anion Gap 10, Blood Urea Nitrogen 8, Creatinine 0.67, Estimat Glomerular Filtration Rate 125, BUN/Creatinine Ratio 12, Glucose Level 92, Calcium Level 8.0, Corrected Calcium 8.9, Iron Level 32, Total Bilirubin 0.7, Aspartate Amino Transf (AST/SGOT) 27, Alanine Aminotransferase (ALT/SGPT) 16, Alkaline Phosphatase 61, Total Protein 5.3, Albumin 2.9 03/19/21 06:47: White Blood Count 5.8, Red Blood Count 2.93, Hemoglobin 8.7, Hematocrit 28, Mean Corpuscular Volume 95, Mean Corpuscular Hemoglobin 30, Mean Corpuscular Hemoglobin Concent 31, Red Cell Distribution Width 14.7, Platelet Count 240, Mean Platelet Volume 9.3, Immature Granulocyte % (Auto) 2, Neutrophils (%) (Auto) 65, Lymphocytes (%) (Auto) 17, Monocytes (%) (Auto) 11, Eosinophils (%) (Auto) 5, Basophils (%) (Auto) 1, Neutrophils # (Auto) 3.8, Lymphocytes # (Auto) 1.0, Monocytes # (Auto) 0.6, Eosinophils # (Auto) 0.3, Basophils # (Auto) 0.1, Immature Granulocyte # (Auto) 0.1, Sodium Level 141, Potassium Level 4.1, Chloride Level 105, Carbon Dioxide Level 25, Anion Gap 11, Blood Urea Nitrogen 15, Creatinine 0.75, Estimat Glomerular Filtration Rate 110, BUN/Creatinine Ratio 20, Glucose Level 89, Calcium Level 8.5, Corrected Calcium 9.1, Total Bilirubin 0.9, Aspartate Amino Transf (AST/SGOT) 28, Alanine Aminotransferase (ALT/SGPT) 29, Alkaline Phosphatase 69, Total Protein 6.0, Albumin 3.2 03/26/21 05:46: White Blood Count 5.4, Red Blood Count 3.33, Hemoglobin 9.8, Hematocrit 32, Mean Corpuscular Volume 96, Mean Corpuscular Hemoglobin 29, Mean Corpuscular Hemoglobin Concent 31, Red Cell Distribution Width 15.6, Platelet Count 318, Mean Platelet Volume 9.4, Immature Granulocyte % (Auto) 1, Neutrophils (%) (Auto) 64, Lymphocytes (%) (Auto) 20, Monocytes (%) (Auto) 9, Eosinophils (%) (Auto) 5, Basophils (%) (Auto) 1, Neutrophils # (Auto) 3.4, Lymphocytes # (Auto) 1.1, Monocytes # (Auto) 0.5, Eosinophils # (Auto) 0.3, Basophils # (Auto) 0.1, Immature Granulocyte # (Auto) 0.0, Sodium Level 138, Potassium Level 4.4, Chloride Level 105, Carbon Dioxide Level 22, Anion Gap 11, Blood Urea Nitrogen 13, Creatinine 0.73, Estimat Glomerular Filtration Rate 113, BUN/Creatinine Ratio 18, Glucose Level 90, Calcium Level 8.5, Corrected Calcium 9.1, Total Bilirubin 0.6, Aspartate Amino Transf (AST/SGOT) 21, Alanine Aminotransferase (ALT/SGPT) 23, Alkaline Phosphatase 141, Total Protein 6.2, Albumin 3.3 Discharge Home Medications: Active Scripts Active Xarelto (Rivaroxaban) 10 Mg Tablet 10 Mg PO DAILY Detrol LA (Tolterodine Tartrate) 4 Mg Cap 4 Mg PO HS Stool Softener-Laxative Tablet (Sennosides/Docusate Sodium) 1 Each Tablet 1 Ea PO BID PRN HYDROcodone/APAP 7.5/325 TAB (Acetaminophen/Hydrocodone Bitart) 1 Ea Tablet 1 Ea PO Q4H PRN Diclofenac Sodium 100 Gm Gel..gram. 0 Gm TOP QID Ferosul (Ferrous Sulfate) 325 Mg Tablet 650 Mg PO Q48H Baclofen 10 Mg Tablet 10 Mg PO Q4HR PRN Cephalexin 250 Mg Capsule 500 Mg PO TID Reported Diclofenac Sodium 75 Mg Tablet.dr 75 Mg PO BID Duloxetine HCl 30 Mg Capsule.dr 30 Mg PO DAILY Lisinopril 20 Mg Tablet 20 Mg PO DAILY Tylenol 8 Hour (Acetaminophen) 650 Mg Tablet.er 1,300 Mg PO BID Instructions to patient/family Please see electronic discharge instructions given to patient. Diagnosis/Problems Diagnosis/Problems (1) Intertrochanteric fracture Status: Acute CHENG FARIAS 19, 2021 06:04
[2021-03-30 08:00] VITALS: BP 156/74
[2021-03-30] MEDS: CEPHALEXIN 250 MG (KEFLEX) CAP PO SCH ×2 (08:27→12:02)
[2021-03-30] MEDS: ETODOLAC 300 MG (LODINE) CAP PO SCH (08:27)
[2021-03-30] MEDS: DULoxetine 30 MG (CYMBALTA) CAP PO SCH (08:27)
[2021-03-30] MEDS: lisINopril 20 MG (PRINIVIL) TABLET PO SCH (08:27)
[2021-03-30] MEDS: ACETAMINOPHEN 500 MG TAB (TYLENOL) PO SCH (08:27)
[2021-03-30] MEDS: DICLOFENAC 1% GEL 100 GM (VOLTAREN) TUBE TOP SCH (08:29)
[2021-03-30] MEDS ORDERED: RIVA10TA PO (09:03)
[2021-03-30 12:04] VITALS: BP 107/66
[2021-03-30 12:25] VITALS: BP 107/66
--- NOTE | 2021-03-30 14:45 | Therapy Team Discharge Summary ---
Therapy Discharge Summary Discharge Recommendations Date of Discharge Mar 30, 2021 at 12:25 Physical Therapy Patient came to rehab with Immobility, Right femur fracture with IM nail, fall, TTWB right LE. Upon evaluation patient performed rolling and sit to supine with setup, supine to sit min assist, sit <-> stand dependent, transfers max assist and could propel a manual WC 10'. Patient has been performing bed mobility and transfer training, balance and endurance training, functional strengthening, gait training, and education. Patient has made fair progress and has met all of his assisted goals. Now, patient performs rolling and supine <-> sit with independence, sit <-> stand with min/mod assist, transfers and car transfer with setup, ambulates 6' in the parallel bars, and can propel a manual WC with independence. Patient has been discharged from this facility and will be discharged from PT at this time. Occupational Therapy Impaired I ADL's, Impaired Self-Care Skills PT Agriculturist Goals Custodial Goals PT Custodial Goals Time Frame: May 03, 2021 Roll Left to Right (QC): 6 Sit to Lying (QC): 6 Lying-Sitting on Side/Bed(QC): 6 Sit to Stand (QC): 5 Chair/Zno-id-Xxwtt Xfer(QC): 4 Car Transfer (QC): 4 Does the Patient Walk: Yes Walk 10 feet (QC): 4 Walk 10ft-Uneven Surface(QC): 3 Walk 50ft with 2 Turns (QC): 3 Walk 150 ft (QC): 3 Does the Pt use WC or Scooter?: Yes Wheel 50 feet with 2 turns (QC: 6 1 Step (curb) (QC): 88 4 Steps (QC): 88 12 Steps (QC): 88 Picking up an Object (QC): 4 OT Agriculturist Goals Custodial Goals Time Frame: Apr 13, 2021 Eating (QC): 6 (met) Oral Hygiene (QC): 6 (met) Shower/Bathe Self (QC): 4 (met) Upper Body Dressing (QC): 5 (met) Lower Body Dressing (QC): 4 (met) On/Off Footwear (QC): 5 (met) Toileting Hygiene (QC): 4 (met) Toilet/Commode Transfer (QC): 4 Additional Goals: 1-Demonstrate ADL Tasks, 2-Verbalize Understanding, 3- ImproveStrength/Debo 1=Demonstrate adherence to instructed precautions during ADL tasks. 2=Patient will verbalize/demonstrate understanding of assistive dev ices/modifications for ADL. 3=Patient will improve strength/tolerance for activity to enable patient to perform ADL's. LIVIER NEVAREZ PT Mar 30, 2021 14:44
--- NOTE | 2021-03-30 15:45 | Therapy Team Discharge Summary ---
Therapy Discharge Summary Discharge Recommendations Date of Discharge Mar 30, 2021 at 12:25 Occupational Therapy Pt admitted to ARU s/p IM nail. At PLOF, pt was independent with ADLs and fun ctional mobility, using 1-2 axillary crutches. Upon initial evaluation, pt was independent with eating, required set up assistance wtih oral care, min A showering, set up upper body dressing, max A lower body dressing, set up footwear and max A toileting. OT tx focused on increasing BUE strength and activity tolerance, increasing safety and independence with ADLs and functional mobility. At discharge, pt was independent with eating, oral care, showering, and upper body dressing, pt required set up with lower body dressing and footwear and SBA with toileting. Pt made good progress, meeting all LTGs. Pt discharged from facility, d/c from OT. Impaired I ADL's, Impaired Self-Care Skills PT Senior Care Goals Senior Care Goals PT Costumed Character Entertainer Goals Time Frame: May 03, 2021 Roll Left to Right (QC): 6 Sit to Lying (QC): 6 Lying-Sitting on Side/Bed(QC): 6 Sit to Stand (QC): 5 Chair/Udy-id-Riiqw Xfer(QC): 4 Car Transfer (QC): 4 Does the Patient Walk: Yes Walk 10 feet (QC): 4 Walk 10ft-Uneven Surface(QC): 3 Walk 50ft with 2 Turns (QC): 3 Walk 150 ft (QC): 3 Does the Pt use WC or Scooter?: Yes Wheel 50 feet with 2 turns (QC: 6 1 Step (curb) (QC): 88 4 Steps (QC): 88 12 Steps (QC): 88 Picking up an Object (QC): 4 OT Senior Care Goals Senior Care Goals Time Frame: Apr 13, 2021 Eating (QC): 6 (met) Oral Hygiene (QC): 6 (met) Shower/Bathe Self (QC): 4 (met) Upper Body Dressing (QC): 5 (met) Lower Body Dressing (QC): 4 (met) On/Off Footwear (QC): 5 (met) Toileting Hygiene (QC): 4 (met) Toilet/Commode Transfer (QC): 4 Additional Goals: 1-Demonstrate ADL Tasks, 2-Verbalize Understanding, 3- ImproveStrength/Debo 1=Demonstrate adherence to instructed precautions during ADL tasks. 2=Patient will verbalize/demonstrate understanding of assistive devices/modifications for ADL. 3=Patient will improve strength/tolerance for activity to enable patient to perform ADL's. SOURAV TALBOT OT Mar 30, 2021 15:44
== END 2021-03-30 12:25 | disposition home health service (06) | DRG 560 ==
PROVIDERS: ADMIT Internal Medicine; ATTEND Internal Medicine
DX: S72.141D Displaced intertrochanteric fracture of right femur, subsequent encounter for closed fracture with routine healing (principal); T81.41XA Infection following a procedure, superficial incisional surgical site, initial encounter; L03.115 Cellulitis of right lower limb; N31.9 Neuromuscular dysfunction of bladder, unspecified; N39.498 Other specified urinary incontinence; F17.220 Nicotine dependence, chewing tobacco, uncomplicated; I10 Essential (primary) hypertension; N32.81 Overactive bladder; Z72.89 Other problems related to lifestyle; D64.9 Anemia, unspecified; J30.1 Allergic rhinitis due to pollen; Z98.1 Arthrodesis status; Z87.828 Personal history of other (healed) physical injury and trauma; Z88.6 Allergy status to analgesic agent; Z91.030 Bee allergy status; W10.1XXD Fall (on)(from) sidewalk curb, subsequent encounter
CPT/HCPCS: 36415; 80053; 83540; 85025

== ENCOUNTER → 2021-05-29 | Outpatient (CLI) | payer MEDICARE ==
[~2021-05-29] MED LIST changes: +ACET-2840 PO; +APIX2.5T PO; +CEPH250C PO; +DICL100G13 TOP; +DICL75TA2 PO; +DULO30CA49 PO; +FERR325T18 PO; +FERR325T24 PO; +HYDR-34 PO; +HYDR-3817 PO; +LISI20TA26 PO; +RIVA10TA PO; +SENN1TAB76 PO; +TOLTA4 PO; +TRAM50TA3 PO
[2021-05-29 18:19] LABS: BILIRUBIN,URINE NEGATIVE (NEGATIVE); CLARITY,URINE TURBID; COLOR,URINE YELLOW; GLUCOSE, URINE (UA) NEGATIVE (NEGATIVE); KETONES,URINE TRACE (NEGATIVE); LEUKOCYTE ESTERASE ,URINE TRACE (NEGATIVE); NITRITE,URINE POSITIVE (NEGATIVE); PH,URINE 5.5 (5-9); PROTEIN,URINE 1+ (NEGATIVE)
[2021-05-29 18:33] LABS: RBC,URINE RARE /HPF
[2021-05-29 18:34] LABS: BACTERIA,URINE LARGE /HPF
== END ==
LOC: IHC 17:58
PROVIDERS: ATTEND Allergy & Immunology
DX: S24.101S Unspecified injury at T1 level of thoracic spinal cord, sequela (principal); N40.0 Benign prostatic hyperplasia without lower urinary tract symptoms; X58.XXXS Exposure to other specified factors, sequela
CPT/HCPCS: 81000; 87088

== ENCOUNTER → 2021-08-02 | Outpatient (CLI) | payer MEDICARE ==
--- NOTE | 2021-08-02 16:00 | Diagnostic Imaging Report ---
PROCEDURE: US Venous Lower Ext Guido. TECHNIQUE: Multiple Real-time grayscale images were obtained over the lower extremities in various projections, bilaterally. Additional duplex Doppler and color Doppler images were also obtained. INDICATION: Lower extremity swelling and pain. COMPARISON: None. FINDINGS: The visualized deep and superficial venous system is patent. There is no DVT. IMPRESSION: Negative lower extremity venous Doppler. Dictated by: Dictated on workstation # [id number]
== END ==
LOC: RAD FS 13:22
PROVIDERS: ATTEND Allergy & Immunology
DX: R79.89 Other specified abnormal findings of blood chemistry (principal); M79.605 Pain in left leg; M79.604 Pain in right leg
CPT/HCPCS: 93970